=== PATIENT | male | born 1950 | race Caucasian/White ===

== ENCOUNTER 2020-05-14 09:37 | Outpatient (REF) | payer MEDICARE, MEDICAID, SELFPAY ==
[2020-05-14 10:38] LABS: MANUAL DIFF FLAG NO
[2020-05-14 10:57] LABS: Basophils Percent Auto 0.5 % (0-2); Eosinophils Absolute Auto 0.2 X10*3/uL (0.0-0.4); Eosinophils Percent Auto 2.5 % (0-4); Hemoglobin 12.8 g/dl (14.0-18.0); Imm Gran Abs Auto 0.01 X10*3/uL (0.00-0.03); Imm Gran Pct Auto 0.2 % (0.0-0.4); Lymphocytes Absolute Auto 2.7 X10*3/uL (1.2-4.9); Lymphocytes Percent Auto 44.1 % (20-40); Mean Corpuscular HGB Conc 32.8 g/dl (31.0-36.0); Mean Corpuscular Hemoglobin 29.9 pg (27.0-33.0); Mean Corpuscular Volume 91.1 fL (80-98); Mean Platelet Volume 11.1 fL (9.4-12.4); Monocytes Absolute Auto 0.4 X10*3/uL (0.1-1.2); Monocytes Percent Auto 7.3 % (2-11); Neutrophils Absolute Auto 2.8 X10*3/uL (2.0-8.3); Neutrophils Percent Auto 45.4 % (45-73); Platelet Count 168 X10*3/uL (160-400); Red Blood Count 4.28 X10*6/uL (4.60-5.80); Red Cell Distribution Width 13.6 % (11.0-16.0); White Blood Count 6.1 X10*3/uL (4.8-10.8)
[2020-05-14 11:06] LABS: Anion Gap 14 (12-20); Blood Urea Nitrogen 27 mg/dL (9-16); Calcium 9.7 mg/dL (8.4-10.2); Carbon Dioxide 26 mmol/L (22-29); Chloride 104 mmol/L (96-108); Estimated Glomerular Filt Rate 39; Phosphorus 3.2 mg/dL (2.7-4.5); Potassium 4.7 mmol/l (3.3-5.1); Sodium 139 mmol/L (135-145)
[2020-05-14 12:02] LABS: Albumin Level 4.7 g/dL (3.5-5.0)
[2020-05-14 12:36] LABS: Renal w Reflex Lab Use Only Order verified
== END 2020-05-14 09:38 | disposition home or self-care (01) ==
LOC: HO.LAB 09:37
PROVIDERS: PCP Internal Medicine; Visit Provider Internal Medicine Nephrology
DX: I12.9 Hypertensive chronic kidney disease with stage 1 through stage 4 chronic kidney disease, or unspecified chronic kidney disease (principal); N18.4 Chronic kidney disease, stage 4 (severe); N25.81 Secondary hyperparathyroidism of renal origin; I69.959 Hemiplegia and hemiparesis following unspecified cerebrovascular disease affecting unspecified side
CPT/HCPCS: 36415; 80051; 82040; 82310; 82565; 84100; 84520; 85025

== ENCOUNTER 2020-08-23 11:44 | Outpatient (REF) | payer MEDICARE, MEDICAID, SELFPAY | END 2020-08-23 11:45 | disposition home or self-care (01) | LOC: HO.LAB 11:44 | PROVIDERS: Visit Provider Internal Medicine | DX: Z20.822 Contact with and (suspected) exposure to COVID-19 (principal) | CPT/HCPCS: 36415; C9803; U0003 ==

== ENCOUNTER 2021-03-04 17:33 | Emergency (ER) | payer OTHER, SELFPAY ==
--- NOTE | ~2021-03-04 | CT_ITS ---
EXAMINATION: CT ABDOMEN AND PELVIS WITHOUT CONTRAST CLINICAL INFORMATION: Right lower quadrant periumbilical pain. COMPARISON: No priors. TECHNIQUE: Multidetector volumetric imaging was performed from the superior aspect of the liver through the pubic symphysis. Sagittal and coronal reformatted images were obtained on the technologist's workstation. This CT examination was performed using dose optimization techniques as appropriate, variously including the following: *Automated exposure control *Adjustment of mA and/or kV according to patient size (this includes techniques or standardized protocols for targeted exams where dose is matched to indication/reason for exam; i.e. extremities or head) *Use of iterative reconstruction technique DLP: 753 mGy-cm FINDINGS: LINES AND TUBES: None. LOWER THORAX: Lung bases are clear. Heart is normal in size. No pericardial effusion or thickening. HEPATOBILIARY: The liver is normal in size, contour, and attenuation. No focal hepatic lesions. The gallbladder is present and otherwise unremarkable. No intrahepatic or extrahepatic biliary dilatation. SPLEEN: Normal. PANCREAS: Normal. ADRENALS: Normal. KIDNEYS/URETERS: Right kidney is atrophic. Right ureter is normal throughout its course. Normal left kidney. Simple cyst in the left mid kidney measures up to 1.7 cm. Left ureter is normal throughout its course. BLADDER: Normal. PELVIC ORGANS: Prostate seminal vesicles are normal in caliber. Central prostatic calcifications noted. GI TRACT: No dilated or thick walled loops of bowel. Cecum is in the midline and the appendix (3:62) appears normal caliber. Left colon and proximal sigmoid diverticulosis. PERITONEUM/RETROPERITONEUM AND MESENTERY: No intraperitoneal free air or fluid. LYMPH NODES: No pathologically enlarged lymph nodes. VESSELS: Normal in caliber. BONES AND SOFT TISSUES: No aggressive osseous lesions. Fat-containing periumbilical hernia. No evidence of inflammatory changes in the herniated the local fat to suggest regulation. A large right small bowel and fat-containing inguinal hernia is appreciated. No inflammatory changes in the herniated bowel or herniated fat is appreciated. A small portion of the right anterior urinary bladder wall is herniated into the right inguinal hernia. CT/CT abdomen pelvis wo con IMPRESSION: 1. Fat-containing periumbilical hernia without evidence of strangulation. 2. Large small bowel and fat-containing right inguinal hernia. No evidence of angulation. 3. Atrophic right kidney. 4. Distal left colon and proximal sigmoid diverticulosis. No evidence of diverticulitis.
[2021-03-04 17:44] VITALS: BP 128/58; PULSE 53; O2SAT 98
[2021-03-04 18:03] VITALS: BP 126/60; PULSE 49; RESP 16; TEMP 36.6; O2SAT 97; BMI 26.8
--- NOTE | 2021-03-04 18:13 | ED.ABDPAIN ---
HPI - Abdominal Pain General Chief Complaint: Abdominal Pain Stated Complaint: ABD PAIN Time Seen by Provider: 03/04/21 18:11 Source: patient, family, EMS and designer architect Mode of arrival: EMS Limitations: no limitations History of Present Illness MD elicited complaint: abdominal pain Pertinent past history: none Onset (ago): hour(s) (upon waking earlier this AM) Pain Consistency: constant Location: periumbilical Severity: moderate Quality: cramping Radiation: none Migration to: no migration Exacerbating factors: nothing Relieving factors: nothing Associated symptoms: denies other symptoms Related Data Home Medications Medication Instructions Recorded Confirmed aspirin 81 mg tablet,delayed 81 mg PO DAILY 11/15/20 02/17/21 release cholecalciferol (vitamin D3) 25 25 mcg PO DAILY 11/15/20 02/17/21 mcg (1,000 unit) tablet cyanocobalamin (vitamin B-12) 1,000 mcg PO DAILY 11/15/20 02/17/21 1,000 mcg capsule Previous Rx's Medication Instructions Recorded walker #1 ea 11/15/20 folic acid 1 mg tablet 1 mg PO DAILY 90 Days #90 tab 02/01/21 lisinopril 2.5 mg tablet 2.5 mg PO DAILY 90 Days #90 tab 02/01/21 amlodipine 10 mg tablet 10 mg PO DAILY 90 Days #90 tab 02/02/21 furosemide 20 mg tablet 20 mg PO DAILY 90 Days #90 tab 02/02/21 metoprolol tartrate 25 mg tablet 25 mg PO DAILY #90 tab 02/02/21 rosuvastatin 10 mg tablet 10 mg PO DAILY 90 Days #90 tab 02/17/21 Allergies Allergy/AdvReac Type Severity Reaction Status Date / Time No Known Allergies Allergy Verified 02/17/21 15:00 Review of Systems Review of Systems Constitutional : No Weight loss, No Fever, No Chills ENT/Mouth : No sore throat, No Rhinorrhea Eyes: No Swelling, No Redness Cardiovascular : No Chest Pain, No SOB, NoEdema Respiratory : No Cough, No Sputum, No Wheezing Gastrointestinal : no Nausea, no Vomiting, no Diarrhea, positive abdominal Pain, No Hematochezia, No Melena, pos constipation Genitourinary : No Dysuria, No Urinary Frequency, No Hematuria, No Urgency Musculoskeletal : No joint pain, No Myalgias, No Joint Swelling Skin : No Skin Lesions, No rash Neuro : No Weakness, No Numbness, No Dizziness, No Headache Psych : No Anxiety/Panic, No Depression Heme/Lymph: No Bruising, No Lymphadenopathy Endocrine : No Polyuria, No Polydipsia All other systems reviewed and are negative. Physical Exam Vital Signs: Vital Signs: Last Vital Signs Temp 97.8 F 03/04/21 18:03 Pulse 49 L 03/04/21 18:03 Resp 16 03/04/21 18:03 BP 126/60 03/04/21 18:03 Pulse Ox 97 03/04/21 18:03 Body Mass Index 26.8 Appearance: Alert. Oriented X3. No acute distress. Eyes: Pupils equal, round and reactive to light. ENT: Pharynx normal. Neck: Normal inspection. Neck supple. CVS: Normal heart rate and rhythm. Pulses normal. Respiratory: No respiratory distress. Breath sounds normal. Abdomen: Soft and mild periumbilical ttp no rebound or guarding Skin: Skin warm and dry. Normal skin color. Normal skin turgor. Extremities: No lower extremity edema. No calf ttp Neuro: Oriented X 3. No motor deficit. No sensory deficit. Course Course Course Narrative: hernis in groin easily reduced, no pain no signs of obstructino, pain resolved will refer to surgery as outpatient MDM - Abdominal Pain MDM Narrative Medical decision making narrative: 70 yo male with hx of DM, CKD, HTN, HLD, no prior abdominal surgeries comes in with c/o periumbilical pain since this AM associated symptom mild constipation no other complaints at this time will need labs, CT scan for constipation/appendicitis/diverticulitis, dispo per results and findings. Lab Data Result diagrams: 03/04/21 19:43 03/04/21 20:19 Labs: Lab Results 03/04/21 03/04/21 03/04/21 Range/Units 19:43 19:43 20:19 WBC 7.4 (4.8-10.8) X10*3/uL RBC 4.44 L (4.60-5.80) X10*6/uL Hgb 13.4 L (14.0-18.0) g/dl Hct 40.0 L (42-52) % MCV 90.1 (80-98) fL MCH 30.2 (27.0-33.0) pg MCHC 33.5 (31.0-36.0) g/dl RDW 13.2 (11.0-16.0) % Plt Count 177 (160-400) X10*3/uL MPV 10.4 (9.4-12.4) fL Immature Gran % (Auto) 0.1 (0.0-0.4) % Neut % (Auto) 74.5 H (45-73) % Lymph % (Auto) 17.4 L (20-40) % [place] % (Auto) 6.9 (2-11) % Eos % (Auto) 0.7 (0-4) % Baso % (Auto) 0.4 (0-2) % Lymph # (Auto) 1.3 (1.2-4.9) X10*3/uL [place] # (Auto) 0.5 (0.1-1.2) X10*3/uL Eos # (Auto) 0.1 (0.0-0.4) X10*3/uL Baso # (Auto) 0.0 (0.0-0.2) X10*3/uL Abs Immat Gran (auto) 0.01 (0.00-0.03) X10*3/uL Absolute Neuts (auto) 5.5 (2.0-8.3) X10*3/uL Absolute Nucleated RBC 0.000 (0.0-0.012) X10*3/uL Nucleated RBC % (auto) 0.0 (0.0-0.2) /100WBC Sodium Cancelled 138 Potassium Cancelled 5.4 H Chloride Cancelled 105 Carbon Dioxide Cancelled 23 Anion Gap Cancelled 15 BUN Cancelled 33 H Creatinine Cancelled 2.06 H Estim Creat Clear Calc Cancelled 30.7 Estimated GFR Cancelled 32 Random Glucose Cancelled 125 H Calcium Cancelled 9.9 Magnesium 2.3 (1.6-2.6) mg/dL Total Bilirubin 0.7 (0.0-1.0) mg/dL Direct Bilirubin 0.3 (0.0-0.5) mg/dL AST 16 (5-37) U/L ALT 13 (0-40) U/L Alkaline Phosphatase 64 (39-117) U/L Total Protein 7.6 (6.5-8.0) g/dL Albumin 4.4 (3.5-5.0) g/dL Lipase Cancelled 38 Urine Color Urine Appearance Urine pH (5.0-8.0) Ur Specific [place] (1.005-1.025) Urine Protein (NEG-TRACE) MG/DL Urine Glucose (UA) (NEG) MG/DL Urine Ketones (NEG) MG/DL Urine Blood (NEG) Urine Nitrite (NEG) Ur Leukocyte Esterase (NEG) 03/04/21 Range/Units 21:00 WBC (4.8-10.8) X10*3/uL RBC (4.60-5.80) X10*6/uL Hgb (14.0-18.0) g/dl Hct (42-52) % MCV (80-98) fL MCH (27.0-33.0) pg MCHC (31.0-36.0) g/dl RDW (11.0-16.0) % Plt Count (160-400) X10*3/uL MPV (9.4-12.4) fL Immature Gran % (Auto) (0.0-0.4) % Neut % (Auto) (45-73) % Lymph % (Auto) (20-40) % [place] % (Auto) (2-11) % Eos % (Auto) (0-4) % Baso % (Auto) (0-2) % Lymph # (Auto) (1.2-4.9) X10*3/uL [place] # (Auto) (0.1-1.2) X10*3/uL Eos # (Auto) (0.0-0.4) X10*3/uL Baso # (Auto) (0.0-0.2) X10*3/uL Abs Immat Gran (auto) (0.00-0.03) X10*3/uL Absolute Neuts (auto) (2.0-8.3) X10*3/uL Absolute Nucleated RBC (0.0-0.012) X10*3/uL Nucleated RBC % (auto) (0.0-0.2) /100WBC Sodium Potassium Chloride Carbon Dioxide Anion Gap BUN Creatinine Estim Creat Clear Calc Estimated GFR Random Glucose Calcium Magnesium (1.6-2.6) mg/dL Total Bilirubin (0.0-1.0) mg/dL Direct Bilirubin (0.0-0.5) mg/dL AST (5-37) U/L ALT (0-40) U/L Alkaline Phosphatase (39-117) U/L Total Protein (6.5-8.0) g/dL Albumin (3.5-5.0) g/dL Lipase Urine Color YELLOW Urine Appearance CLEAR Urine pH 6.0 (5.0-8.0) Ur Specific [place] 1.020 (1.005-1.025) Urine Protein NEG (NEG-TRACE) MG/DL Urine Glucose (UA) NEG (NEG) MG/DL Urine Ketones NEG (NEG) MG/DL Urine Blood NEG (NEG) Urine Nitrite NEG (NEG) Ur Leukocyte Esterase NEG (NEG) ECG Data Attestation: I personally reviewed and interpreted this ECG as follows: ECG interpretation date: 03/04/21 ECG interpretation time: 19:17 Interpretation: Rate: 49 Rhythm: sinus bradycardia with 1st degree AVB [place]: left Normal P waves. 1st degree AVB Normal QRS complex. ST T wave : normal no CECILIO qTC: normal prior studies: no acute ischemia The study has been interpreted contemporaneously by me. . Discharge Plan Discharge Clinical Impression: Inguinal hernia Qualifiers: Obstruction and gangrene presence: without obstruction or gangrene Laterality: unilateral Recurrence: not specified as recurrent Qualified Code(s): K40.90 - Unilateral inguinal hernia, without obstruction or gangrene, not specified as recurrent Patient Disposition: Home, Self-Care Instructions: Inguinal Hernia (ED) Additional Instructions: return to ED for any worsening symptoms or concerns Prescriptions: No Action folic acid 1 mg tablet 1 mg PO DAILY 90 Days Qty: 90 RF: 1 lisinopril 2.5 mg tablet 2.5 mg PO DAILY 90 Days Qty: 90 RF: 2 metoprolol tartrate 25 mg tablet 25 mg PO DAILY Qty: 90 RF: 2 furosemide 20 mg tablet 20 mg PO DAILY 90 Days Qty: 90 RF: 1 amlodipine 10 mg tablet 10 mg PO DAILY 90 Days Qty: 90 RF: 2 rosuvastatin [Crestor] 10 mg tablet 10 mg PO DAILY 90 Days Qty: 90 RF: 2 aspirin [Adult Low Dose Aspirin] 81 mg tablet,delayed release (DR/EC) 81 mg PO DAILY RF: 0 cyanocobalamin (vitamin B-12) 1,000 mcg capsule 1,000 mcg PO DAILY RF: 0 cholecalciferol (vitamin D3) 25 mcg (1,000 unit) tablet 25 mcg PO DAILY RF: 0 (DME) walker Misc See Rx Instructions .ROUTE .MEDSUPPLY Qty: 1 RF: 0 Referrals: Jorge Miguel MD [Physician] - 1 week Print Language: Panamanian ON LICENSE OF [facility] Past Medical History Attestation statement: The following information was validated with the patient. Medical History CKD (chronic kidney disease) stage 4, GFR 15-29 ml/min History of CVA (cerebrovascular accident) Hypercholesterolemia Hypertension Thrombocytopenia Type 2 diabetes mellitus with hyperglycemia Vitamin D deficiency Social History Social History Housing: House Alcohol intake: former Patient Tobacco Use Status: Never used Tobacco Advance Directives: No Advance Directives Information Provided: Yes service: No Current occupational status: retired
--- NOTE | 2021-03-04 18:54 | ECG_ITS ---
Test Reason : ABD PAIN Blood Pressure : / mmHG Vent. Rate : 049 BPM Atrial Rate : 049 BPM P-R Int : 286 ms QRS Dur : 096 ms QT Int : 446 ms P-R-T Axes : 077 -11 059 degrees QTc Int : 402 ms Sinus bradycardia with 1st degree A-V block Otherwise normal ECG When compared with ECG of 21-JUN-2019 09:18, No significant change was found Referred By: Leslee Chery Electronically Signed By:TAMMI GANT MD
[2021-03-04] MEDS: 0.9 % Sodium Chloride 500 ML IV (19:26)
[2021-03-04 19:48] LABS: MANUAL DIFF FLAG NO
[2021-03-04 19:52] LABS: Basophils Percent Auto 0.4 % (0-2); Eosinophils Absolute Auto 0.1 X10*3/uL (0.0-0.4); Eosinophils Percent Auto 0.7 % (0-4); Hemoglobin 13.4 g/dl (14.0-18.0); Imm Gran Abs Auto 0.01 X10*3/uL (0.00-0.03); Imm Gran Pct Auto 0.1 % (0.0-0.4); Lymphocytes Absolute Auto 1.3 X10*3/uL (1.2-4.9); Lymphocytes Percent Auto 17.4 % (20-40); Mean Corpuscular HGB Conc 33.5 g/dl (31.0-36.0); Mean Corpuscular Hemoglobin 30.2 pg (27.0-33.0); Mean Corpuscular Volume 90.1 fL (80-98); Mean Platelet Volume 10.4 fL (9.4-12.4); Monocytes Absolute Auto 0.5 X10*3/uL (0.1-1.2); Monocytes Percent Auto 6.9 % (2-11); Neutrophils Absolute Auto 5.5 X10*3/uL (2.0-8.3); Neutrophils Percent Auto 74.5 % (45-73); Platelet Count 177 X10*3/uL (160-400); Red Blood Count 4.44 X10*6/uL (4.60-5.80); Red Cell Distribution Width 13.2 % (11.0-16.0); White Blood Count 7.4 X10*3/uL (4.8-10.8)
[2021-03-04 20:49] LABS: Alanine Aminotransferase 13 U/L (0-40); Albumin Level 4.4 g/dL (3.5-5.0); Alkaline Phosphatase 64 U/L (39-117); Anion Gap 15 (12-20); Aspartate Amino Transferase 16 U/L (5-37); Bilirubin Direct 0.3 mg/dL (0.0-0.5); Bilirubin Total 0.7 mg/dL (0.0-1.0); Blood Urea Nitrogen 33 mg/dL (9-16); Calcium 9.9 mg/dL (8.4-10.2); Carbon Dioxide 23 mmol/L (22-29); Chloride 105 mmol/L (96-108); Creatinine Clr Calc Pharmacy 30.7; Estimated Glomerular Filt Rate 32; Glucose Random 125 mg/dL (60-115); Lipase 38 U/L (8-78); Magnesium 2.3 mg/dL (1.6-2.6); Potassium 5.4 mmol/L (3.3-5.1); Sodium 138 mmol/L (135-145); Total Protein 7.6 g/dL (6.5-8.0)
[2021-03-04 21:27] LABS: Glucose Urine UA NEG (NEG); Leukocyte Esterase Urine NEG (NEG); Nitrite Urine NEG (NEG); Urine Blood NEG (NEG); Urine Ketones NEG (NEG); Urine Protein NEG (NEG-TRACE)
[2021-03-04 21:31] LABS: Appearance Urine CLEAR; Color Urine YELLOW
== END 2021-03-04 22:12 | disposition home or self-care (01) ==
PROVIDERS: Emergency Provider Emergency Medicine; PCP Internal Medicine
DX: K40.90 Unilateral inguinal hernia, without obstruction or gangrene, not specified as recurrent (principal); R10.33 Periumbilical pain; E11.22 Type 2 diabetes mellitus with diabetic chronic kidney disease; I12.9 Hypertensive chronic kidney disease with stage 1 through stage 4 chronic kidney disease, or unspecified chronic kidney disease; N18.4 Chronic kidney disease, stage 4 (severe); Z86.73 Personal history of transient ischemic attack (TIA), and cerebral infarction without residual deficits
CPT/HCPCS: 36415; 74176; 80048; 80076; 81003; 83690; 83735; 85025; 93005; 96360; 99283; 99284

== ENCOUNTER → 2021-03-16 15:43 | Outpatient (BNVA) | payer MEDICARE, SELFPAY | PROVIDERS: PCP Internal Medicine; Referring Provider Internal Medicine; Visit Provider Surgery | DX: K40.90 Unilateral inguinal hernia, without obstruction or gangrene, not specified as recurrent (principal); K42.9 Umbilical hernia without obstruction or gangrene | CPT/HCPCS: 99202 ==

== ENCOUNTER 2021-10-14 10:37 | Outpatient (REF) | payer MEDICARE, SELFPAY ==
[2021-10-14 10:59] LABS: MANUAL DIFF FLAG NO
[2021-10-14 11:56] LABS: Basophils Percent Auto 0.3 % (0-2); Eosinophils Absolute Auto 0.1 X10*3/uL (0.0-0.4); Eosinophils Percent Auto 1.6 % (0-4); Hematocrit 38.6 % (42.0-52.0); Hemoglobin 12.3 g/dl (14.0-18.0); Imm Gran Abs Auto 0.01 X10*3/uL (0.00-0.03); Imm Gran Pct Auto 0.1 % (0.0-0.4); Lymphocytes Absolute Auto 2.4 X10*3/uL (1.2-4.9); Lymphocytes Percent Auto 34.5 % (20-40); Mean Corpuscular HGB Conc 31.9 g/dl (31.0-36.0); Mean Corpuscular Hemoglobin 29.9 pg (27.0-33.0); Mean Corpuscular Volume 93.9 fL (80.0-98.0); Mean Platelet Volume 10.6 fL (9.4-12.4); Monocytes Absolute Auto 0.5 X10*3/uL (0.1-1.2); Monocytes Percent Auto 7.7 % (2-11); Neutrophils Absolute Auto 3.9 x10*3/uL (2.0-8.3); Neutrophils Percent Auto 55.8 % (45-73); Platelet Count 210 X10*3/uL (160-400); Red Blood Count 4.11 X10*6/uL (4.60-5.80); Red Cell Distribution Width 13.3 % (11.0-16.0); White Blood Count 6.9 X10*3/uL (4.8-10.8)
[2021-10-14 12:01] LABS: Anion Gap 15 (12-20); Blood Urea Nitrogen 27 mg/dL (9-16); Calcium 10.3 mg/dL (8.4-10.2); Carbon Dioxide 26 mmol/L (22-29); Chloride 105 mmol/L (96-108); Estimated Glomerular Filt Rate 35; Iron 83 mcg/dL (45-160); Percent Iron Saturation 28 % (15-50); Phosphorus 2.8 mg/dL (2.7-4.5); Potassium 4.8 mmol/L (3.3-5.1); Sodium 141 mmol/L (135-145); Total Iron Binding Capacity 298 mcg/dL (228-428); Unsaturated Iron Binding 215 ug/dL
[2021-10-16 13:35] LABS: PTHI 225 pg/mL (14-64)
== END 2021-10-14 10:38 | disposition home or self-care (01) ==
LOC: HO.LAB 10:37
PROVIDERS: Absent Provider Internal Medicine; PCP Internal Medicine; Visit Provider Internal Medicine Nephrology
DX: N18.4 Chronic kidney disease, stage 4 (severe) (principal); I69.954 Hemiplegia and hemiparesis following unspecified cerebrovascular disease affecting left non-dominant side; N25.81 Secondary hyperparathyroidism of renal origin
CPT/HCPCS: 36415; 80051; 82306; 82310; 82565; 83540; 83970; 84100; 84520; 85025

== ENCOUNTER → 2021-12-04 14:04 | Outpatient (BNVA) | payer OTHER, SELFPAY | PROVIDERS: PCP Internal Medicine; Referring Provider Internal Medicine; Visit Provider Surgery | DX: K40.90 Unilateral inguinal hernia, without obstruction or gangrene, not specified as recurrent (principal); K42.9 Umbilical hernia without obstruction or gangrene | CPT/HCPCS: 99212 ==

== ENCOUNTER → 2022-01-10 14:57 | Outpatient (BNVA) | payer OTHER, SELFPAY | PROVIDERS: PCP Internal Medicine; Referring Provider Internal Medicine; Visit Provider Internal Medicine | DX: Z01.810 Encounter for preprocedural cardiovascular examination (principal); I44.0 Atrioventricular block, first degree; E11.65 Type 2 diabetes mellitus with hyperglycemia; E11.22 Type 2 diabetes mellitus with diabetic chronic kidney disease; I12.9 Hypertensive chronic kidney disease with stage 1 through stage 4 chronic kidney disease, or unspecified chronic kidney disease; N18.4 Chronic kidney disease, stage 4 (severe); I25.2 Old myocardial infarction; E78.00 Pure hypercholesterolemia, unspecified; Z86.73 Personal history of transient ischemic attack (TIA), and cerebral infarction without residual deficits | CPT/HCPCS: 93005; 99202 ==

== ENCOUNTER → 2022-02-08 09:16 | Outpatient (REF) | payer OTHER, SELFPAY ==
--- NOTE | ~2022-02-08 | NM_ITS ---
Huong Myocardial perfusion study Indication: Preoperative cardiovascular examination Technique: The patient was brought in for a dobutamine myocardial perfusion study on 02/08/2022 and was injected dobutamine intravenously per protocol. Subsequently 25 mCi of sestamibi was given intravenously. Images were obtained using the SPECT gamma camera interlaced with the gating device. Images were obtained in supine position. Resting perfusion study was performed on 02/09/2022. Patient was administered 25 mCi of sestamibi intravenously at rest. Images were then obtained in supine position. Total DLP 150mGy-cm. Images were processed with the software and compared side to side in short axis, horizontal long axis and vertical long axis views. Findings: Raw acquisition reviewed. Both arms by the patient's side The stress perfusion study showed diminished tracer uptake along mid to distal inferolateral wall there is some improvement with CT attenuation correction but not entirely. Hence probably components of diaphragmatic artifact as well as true defect. The gated study shows normal LV systolic function with calculated LVEF of 64%. LV cavity is normal in size. The gated study shows inferolateral akinesis. Resting study shows diminished tracer uptake in the mid to distal inferolateral wall. Slight improvement with CT attenuation correction but not entirely. Gating at rest reveals ejection fraction at 75%. The findings are consistent with-mostly fixed mid to distal inferolateral defect; mild reversibility. NM/NM cardiolite stress test Impression: 1. Myocardial perfusion imaging study shows infarct in the mid to distal inferolateral wall with mild ischemia. 2. Gated LVEF is 64% during stress and 74% during rest. 3. Transient ischemic dilatation not present. EKG component of the test reported separately.
--- NOTE | 2022-02-08 09:20 | CA_ITS ---
Acquisition Time: 2022-02-08 09:42:20 Total Exercise Time: 00:13:30 Test Indications: PREOP Medications: AMILODIPINE ASA LISINOPRIL ROSUVASTATIN Protocol: DOBUTAMINE Max HR: 126 BPM 85% of Pred: 148 BPM Max BP: 116/062 mmHG Max Work Load: 1.0 METS Pharmacolgical stress test with Dobutamine infusion per protocol, to max dose of 30 mcg/ kg/ min, achieing 85% MPHR, without anginal symptoms, with isolated PACs, and PVCs, with short run of narrow complex tachycardia in recovery, with normotensive response to infusion, with nondiagnostic EKG for ischemia due to baseline abnormality. He was monitored for 13 min in recovery. Nuclear images pending. Test reviewed with Dr Whitley. Referred By: Dmitriy Willis Overread By: WINSTON MOREIRA
== END ==
LOC: HO.CARD 09:16
PROVIDERS: PCP Internal Medicine; Visit Provider Internal Medicine
DX: Z01.810 Encounter for preprocedural cardiovascular examination (principal)
CPT/HCPCS: 78452; 93017; A9500; J1250

== ENCOUNTER → 2022-02-21 13:11 | Outpatient (REF) | payer OTHER, SELFPAY ==
--- NOTE | 2022-02-21 13:14 | CA_ITS ---
Transthoracic Echocardiogram Patient (Last, First, Middle): Rio Rushing A Gender: Male Date of : 1950 Age: 71 Procedure Date: 02/21/2022 Procedure Type: Transthoracic Echocardiogram Location: OP Height: 165.1 cm Weight: 81.65 kg BSA: 1.89 m2 Heart Rate: 57 bpm BP: 128 / 72 mmHg Hvac/R Instructor: SB Referring MD: Dmitriy Willis MD Tax Manager Cpa: Wood Gomes MD Symptoms: Z01.810 - Encounter for preprocedural cardiovascular exam... Study Quality: Fair ECG Rhythm: Bradycardia Conclusions: - 1. Normal LV systolic function with grade 2 diastolic dysfunction 2. Mild aortic and mitral regurgitation 3. No gross pericardial effusion Findings Procedure Information Contrast agent, definity, is being given per protocol without apparent complications. Left Ventricle Normal left ventricular size, thickness, and systolic function. The visually estimated ejection fraction is between 65-70%. Spectral Doppler is indicative of a pseudonormal filling pattern. E/E prime ratio is >15, consistent with elevated filling pressures. Evidence suggests grade II (moderate) diastolic dysfunction. Right Ventricle Normal right ventricular cavity size and systolic function. Atria The left atrium is normal in size. There is no evidence of interatrial shunt. The right atrium is normal in size. Aortic Valve There is mild calcification of the aortic valve. There is no aortic valve stenosis. There is mild aortic valve regurgitation. Mitral Valve There is mild anterior and posterior mitral leaflet thickening. There is mild mitral valve regurgitation. There is no mitral valve stenosis. Pulmonic Valve The pulmonic valve was not well visualized. Tricuspid Valve Likely normal tricuspid valve structure and function. Tricuspid regurgitation envelope is inadequate for calculation of right ventricular systolic pressure. Normal right atrial pressure. Great Vessels All visible segments of the aorta are normal in size. The pulmonary artery was not well visualized. Venous The inferior vena cava is normal in size and collapses greater than 50% with inspiration. Pericardium/Pleural There is no evidence of pericardial effusion. Prior Study Comparison No significant change compared to prior study dated: 05/03/2009. Measurements 2D Linear Measurements IVSd: 0.88 0.6-0.9/0.6-1.0 cm LVIDd: 4.64 3.9-5.3/4.2-5.9 cm LVIDd Index: 2.46 2.4-3.2/2.2-3.1 cm/m2 LVIDs: 2.86 2.0-3.6 cm LVPWd: 0.50 0.7-1.1 cm LA Diam: 3.40 2.7-3.8/3.0-4.0 cm LAIDs Index: 1.80 1.5-2.3 cm/m2 LV Mass: 122.32 67-162/88-224 g LV Mass Index: 64.72 43-95/49-115 g/m2 LVOT Diam: 2.20 3.0+(-)1.3 cm 2D Systolic Function EF 4C: 60.80 >55% EF 2C: 72.60 >55% EF BiP: 65.90 >55% Mitral Valve MV Pk E: 0.97 MV PK A: 0.99 MV Decel Time: 225.00 E/A: 1.00 E'Lateral: 6.09 E'Medial: 4.13 E/E' Med: 23.40 E/E' Lat: 15.90 PHT: 66.00 MVA PHT: 3.33 Decel [place]: 4.31 Aortic Valve AoV Pk Aroldo: 1.82 AoV Mn Aroldo: 1.25 AoV VTI: 0.37 AoV Pk Grad: 13.00 Aov Mn Grad: 7.00 TERENCE Cont.VTI: 2.14 AI Pk Aroldo: 3.74 AI [place]: 1.38 LVOT LVOT Pk Aroldo: 0.93 LVOT Mn Aroldo: 0.68 LVOT VTI: 0.21 LVOT Pk Grad: 3.00 LVOT Mn Grad: 2.00 LVOT Diam: 2.20 LVOT Area: 3.80 Diastolic Function MV Pk E: 0.97 MV Pk A: 0.99 E/A: 1.00 E'Medial: 4.13 E/E' Med: 23.40 E' Laterial: 6.09 E/E' Lat: 15.90 Right Ventricle TAPSE (mm): 20.40 TVS' Aroldo: 7.18 Tricuspid Valve RA Press: 3.00 Great Vessels Aorta Sinus of Valsalva: 3.20 2.0-3.5 cm Ao Asc: 3.20 2.1-3.4 cm Pulmonary Valve PV Pk Aroldo: 1.22 Peak PV Grad: 6.00 Updated in Other Vendor System with Status of Final Wood Gomes MD electronically signed on 02/22/2022 1:34:21 PM with status of Final
== END ==
LOC: HO.CARD 13:11
PROVIDERS: Visit Provider Internal Medicine
DX: Z01.810 Encounter for preprocedural cardiovascular examination (principal)
CPT/HCPCS: 93306; Q9957

== ENCOUNTER → 2022-04-11 14:44 | Outpatient (BNVA) | payer OTHER, SELFPAY | PROVIDERS: PCP Internal Medicine; Referring Provider Internal Medicine; Visit Provider Internal Medicine | DX: Z01.810 Encounter for preprocedural cardiovascular examination (principal); I44.0 Atrioventricular block, first degree; I25.2 Old myocardial infarction; E78.00 Pure hypercholesterolemia, unspecified; E11.65 Type 2 diabetes mellitus with hyperglycemia; E11.22 Type 2 diabetes mellitus with diabetic chronic kidney disease; I12.9 Hypertensive chronic kidney disease with stage 1 through stage 4 chronic kidney disease, or unspecified chronic kidney disease; N18.4 Chronic kidney disease, stage 4 (severe); Z86.73 Personal history of transient ischemic attack (TIA), and cerebral infarction without residual deficits | CPT/HCPCS: 99212 ==

== ENCOUNTER 2022-04-19 10:24 | Emergency (ER) | payer OTHER, SELFPAY ==
--- NOTE | ~2022-04-19 | XR_ITS ---
EXAMINATION: XR KNEE, RIGHT CLINICAL INFORMATION: Pain COMPARISON: None TECHNIQUE: Two views of the right knee. FINDINGS: No fracture or dislocation. No suprapatellar joint effusion. Joint spaces are well-maintained. Tiny tricompartmental marginal osteophytes. No focal soft tissue swelling of the anterior knee. XR/XR knee RT 2V IMPRESSION: Grossly unremarkable radiographs of the right knee.
--- NOTE | ~2022-04-19 | CT_ITS ---
EXAMINATION: CT ABDOMEN AND PELVIS WITHOUT CONTRAST CLINICAL INFORMATION: Trauma COMPARISON: Previous CT of the abdomen and pelvis February 2021 TECHNIQUE: Multidetector volumetric imaging was performed from the superior aspect of the liver through the pubic symphysis. Sagittal and coronal reformatted images were obtained on the technologist's workstation. This CT examination was performed using dose optimization techniques as appropriate, variously including the following: *Automated exposure control *Adjustment of mA and/or kV according to patient size (this includes techniques or standardized protocols for targeted exams where dose is matched to indication/reason for exam; i.e. extremities or head) *Use of iterative reconstruction technique DLP: 766 mGy-cm FINDINGS: LIVER, GALLBLADDER, AND BILIARY TREE: The liver is normal in size, shape, and attenuation. No focal hepatic lesion or biliary ductal dilatation is present. The gallbladder is unremarkable with no evidence of radiopaque gallstones, gallbladder wall thickening, or obvious pericholecystic inflammatory changes. PANCREAS: Unremarkable. SPLEEN: Unremarkable. ADRENAL GLANDS: Unremarkable. KIDNEYS AND URETERS: Severe right renal cortical thinning or scarring. Probable small stone in the upper pole the right kidney. 1.8 cm left renal cyst. The left kidney is otherwise normal. BLADDER: Large right inguinal hernia containing the bladder. The bladder is otherwise normal. GASTROINTESTINAL TRACT: Large right inguinal hernia containing the cecum and small bowel. No evidence of obstruction. Mild diverticulosis of the colon. No colitis. No ascites or free air. Appendix not seen. ABDOMINAL WALL: Large right inguinal hernia containing cecum, small bowel, bladder and fat. Small umbilical hernia containing fat. LYMPH NODES: Normal. VASCULAR: There is atherosclerotic disease. No aneurysm. PELVIC VISCERA: Unremarkable. OSSEOUS STRUCTURES: Heterogeneous lesion in the left femoral intertrochanteric region that is stable. Degenerative changes of the spine. No fracture or dislocation. CT/CT abdomen pelvis wo IV con IMPRESSION: No acute findings. Large right inguinal hernia containing the cecum, small bowel and bladder. Severe renal cortical thinning and scarring of the right kidney. Small right renal stones. Small left renal cyst. Diverticulosis of the colon. Fleischner guidelines were followed.
--- NOTE | ~2022-04-19 | CT_ITS ---
EXAMINATION: CT CHEST WITHOUT CONTRAST CLINICAL INFORMATION: Fall COMPARISON: Previous chest x-ray most recent June 2019 TECHNIQUE: Multidetector volumetric CT imaging of the chest was done. Axial MIP volume rendering provided. Sagittal and coronal reformatted images were obtained. This CT examination was performed using dose optimization techniques as appropriate, variously including the following: *Automated exposure control *Adjustment of mA and/or kV according to patient size (this includes techniques or standardized protocols for targeted exams where dose is matched to indication/reason for exam; i.e. extremities or head) *Use of iterative reconstruction technique DLP: 4-0 mGy-cm FINDINGS: LUNGS: There is subsegmental atelectasis at the left lung base. The lungs are otherwise clear. MEDIASTINUM: The heart is enlarged. There is coronary artery calcification. The thoracic aorta is normal in caliber. There are no enlarged lymph nodes. No mediastinal fluid collection or abnormal air collection. PLEURA: There is no pleural effusion. No pleural mass or thickening. No pneumothorax. AXILLA: No lymphadenopathy. UPPER ABDOMEN: See CT of the abdomen and pelvis from the same day OSSEOUS STRUCTURES: There are degenerative changes of the spine and shoulders. No fracture. CT/CT chest wo IV con IMPRESSION: No acute findings. Subsegmental atelectasis at the left lung base. Enlarged heart and coronary artery calcification. Fleischner guidelines were followed.
--- NOTE | ~2022-04-19 | CT_ITS ---
EXAMINATION: CT CERVICAL SPINE WITHOUT CONTRAST CLINICAL INFORMATION: Fall COMPARISON: Previous cervical spine CT June 2019 TECHNIQUE: Axial images through the cervical spine without contrast. Sagittal and coronal reconstructions on the technologist workstation were performed. This CT examination was performed using dose optimization techniques as appropriate, variously including the following: *Automated exposure control *Adjustment of mA and/or kV according to patient size (this includes techniques or standardized protocols for targeted exams where dose is matched to indication/reason for exam; i.e. extremities or head) *Use of iterative reconstruction technique DLP: 4-0 mGy-cm FINDINGS: Bone alignment is normal. No fracture or dislocation is seen. There is multilevel degenerative spondylosis and degenerative disc disease. There are degenerative changes at the C1 dens and attenuation. Prevertebral soft tissues are normal. There is left carotid calcification. Visualized lung apices are clear. CT/CT cervical spine wo IV con IMPRESSION: Degenerative changes. No fracture or dislocation Fleischner guidelines were followed.
--- NOTE | ~2022-04-19 | CT_ITS ---
EXAMINATION: CT HEAD WITHOUT CONTRAST CLINICAL INFORMATION: Fall COMPARISON: Previous head CT June 2019 TECHNIQUE: Contiguous axial imaging was performed from the skull base to vertex without intravenous administration of contrast. This CT examination was performed using dose optimization techniques as appropriate, variously including the following: *Automated exposure control *Adjustment of mA and/or kV according to patient size (this includes techniques or standardized protocols for targeted exams where dose is matched to indication/reason for exam; i.e. extremities or head) *Use of iterative reconstruction technique DLP: 766 mGy-cm FINDINGS: There is no evidence of an extra-axial collection. There is no evidence of intra-axial or extra-axial hemorrhage. The ventricles and extra-axial CSF spaces are prominent suggestive of generalized atrophy. There is nonspecific periventricular white matter disease. There is an old left thalamic lacunar infarct. No mass, mass effect or acute infarct is seen. There is evidence of atherosclerotic disease. Review at bone windows is normal. No skull fracture is seen. Paranasal sinuses, mastoid air cells and middle ears are clear. CT/CT head/brain wo IV con IMPRESSION: No acute findings. Generalized atrophy, old left thalamic lacunar infarct and nonspecific periventricular white matter disease.
[2022-04-19 10:35] VITALS: BP 108/46; BP 135/82; PULSE 59; PULSE 63; RESP 16; TEMP 36.9; O2SAT 96; O2SAT 98; BMI 25.8
--- NOTE | 2022-04-19 10:35 | ED.GENADULT ---
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 Patient states that he fell 3 days ago and has been having left rib and right knee pain. Patient states that his daughter made him come and he does not want to be here. Patient denies any dizziness, lightheadedness, abdominal pain, nausea, vomiting, fever, chills, blurry vision, double vision, loss of vision, chest pain, difficulty breathing, shortness of breath, back pain, night sweats, pain with urination, increased urinary frequency, increased urinary urgency, blood in his urine or stool, syncope or a near syncopal episode, recent trauma or falls, bowel incontinence, bladder incontinence, bowel retention, bladder retention, or any other complaints at this time. Onset (ago): day(s) (3) Severity: mild Severity scale (1-10): 3 Quality: dull Pain Consistency: constant Relieving factors: none Exacerbating factors: none Associated symptoms: denies other symptoms Treatments prior to arrival: none Related Data Home Medications Medication Instructions Recorded Confirmed aspirin 81 mg tablet,delayed 81 mg PO DAILY 11/15/20 04/11/22 release (Adult Low Dose Aspirin) Previous Rx's Medication Instructions Recorded walker #1 ea 11/15/20 clotrimazole 1 % topical cream 1 appl topical BID 4 weeks #45 10/26/21 grams nystatin 100,000 unit/gram topical 1 appl topical DAILY #60 grams 10/26/21 powder amlodipine 10 mg tablet 10 mg PO DAILY 90 days #90 tabs 11/09/21 lisinopril 2.5 mg tablet 2.5 mg PO DAILY 90 days #90 tabs 11/09/21 rosuvastatin 10 mg tablet (Crestor) 10 mg PO DAILY 90 days #90 tabs 11/09/21 folic acid 1 mg tablet 1 mg PO DAILY #90 tabs 02/14/22 furosemide 20 mg tablet 20 mg PO DAILY 90 days #90 tabs 02/14/22 Allergies Allergy/AdvReac Type Severity Reaction Status Date / Time No Known Allergies Allergy Verified 04/11/22 15:02 Review of Systems Constitutional: Constitutional: Reports no additional constitutional complaints, Denies chills, Denies fever(s) and Denies night sweats Eyes: Eyes: Reports no additional eye complaints, Denies blurry vision, Denies change in vision, Denies diplopia, Denies eye discharge, Denies loss of vision and Denies eye pain ENT: Denies dizziness Cardiovascular: Cardiovascular: Reports no additional cardiovascular complaints, Denies chest pain, Denies lightheadedness, Denies Loss of Consciousness and Denies dyspnea Respiratory: Respiratory: Reports no additional respiratory complaints and Denies dyspnea Gastrointestinal: Gastrointestinal: Reports no additional gastrointestinal complaints, Denies abdominal pain, Denies melena, Denies hematochezia, Denies change in bowel habits and Denies change in stool character Genitourinary: Genitourinary: Reports no additional male genitourinary complaints, Denies hematuria, Denies oliguria, Denies difficulty urinating, Denies dysuria, Denies urinary frequency, Denies urinary hesitancy, Denies urinary incontinence and Denies urinary urgency Musculoskeletal: Musculoskeletal: Reports no additional musculoskeletal complaints, Denies numbness and Denies tingling Comments: left rib pain and right knee pain Neurologic: Denies dizziness, Denies loss of vision, Denies numbness and Denies tingling Psychiatric: Psychiatric: Reports no additional psychiatric complaints Endocrine: Endocrine: Reports no additional endocrine complaints Hematologic/Lymphatic: Hematologic/Lymphatic: Reports no additional hematologic/lymphatic complaints Allergic/Immunologic: Allergic/Immunologic: Reports no additional allergic/immunologic complaints [facility] Past Medical History Attestation statement: The following information was validated with the patient. Source: old records reviewed Medical History CKD (chronic kidney disease) stage 4, GFR 15-29 ml/min History of CVA (cerebrovascular accident) History of CT (myocardial infarction) Hypercholesterolemia Hypertension Right inguinal hernia Thrombocytopenia Type 2 diabetes mellitus with hyperglycemia Umbilical hernia Vitamin D deficiency Surgical History No pertinent past surgical history Family History Family History Father Heart disease Mother No problems noted. Social History Social History (Reviewed 04/19/22 @ 16:40 by RADHA [place] Housing: House Alcohol intake: former Patient Tobacco Use Status: Never used Tobacco e-Cigarette/Vaping Use: Never Used Second Hand Smoke Exposure: No Advance Directives: No Advance Directives Information Provided: No service: No Current occupational status: retired Physical Exam ED Vital Signs: Vital Signs - 24 hr 04/19/22 10:35 04/19/22 10:45 04/19/22 16:00 Temperature 98.4 F 98.4 F 97.8 F Pulse Rate 59 59 74 Respiratory Rate 16 16 16 Blood Pressure 108/46 L 108/46 L 151/70 H Pulse Oximetry 98 99 98 Oxygen Delivery Method Room Air Room Air Room Air BMI result Body Mass Index 25.8 Const General: cooperative, no acute distress, alert and awake Nutritional Appearance: well nourished Orientation/consciousness: patient oriented x3 Limitations: no limitations HENMT Head: Yes normal to inspection and Yes atraumatic Ears: hearing grossly normal bilaterally and external ears normal General nose exam: Normal external nose present, no nasal discharge noted and no epistaxis Face and sinus: Yes normal facial exam, No abrasion and No laceration Mouth: Normal oral and palatal mucosa present, no drooling and no muffled voice Eyes General: appearance normal, both eyes and all related structures Periorbital: periorbital findings normal Eyelids: Yes eyelids normal Conjunctivae: conjunctivae normal Pupils: Equal, round and reactive pupils present EOM: EOMs intact bilaterally Neck Neck: Yes normal visual inspection, Yes full ROM and Yes no lymphadenopathy Chest Chest palpation & inspection: normal inspection of the chest Resp Effort & Inspection: normal respiratory effort and able to speak in complete sentences Auscultation: clear to auscultation bilaterally Cardio Rate: regular rate Rhythm: regular rhythm GI Inspection: Yes normal to inspection Neuro General: patient oriented x3 and moves all extremities Cranial nerves: Yes Equal, round and reactive pupils present Cognition (Neuro): normal cognition Motor exam (neuro): 5/5 motor strength present throughout Sensory Exam: Normal double simultaneous stimulation for sensation Coordination: [id number] test normal Extrem General: Yes normal to inspection, Yes full ROM and Yes capillary refill normal Psych Appearance: grossly normal Mental Status: mental status grossly normal Affect: normal affect Attitude: cooperative Thought process: Normal thought process present Thought content: Normal thought content present Insight: Good insight present (Psych) Medical Decision Making MDM Narrative Medical decision making narrative: Patient is a 71 year old male presenting to the emergency department today with left rib and right knee pain. Patient's physical exam was unremarkable. Patient's blood work showed an elevated creatinine of 2.02 however, this is chronic for the patient. Patient's right knee x-ray showed no acute process. Patient's head, c-spine, chest, and abdomen CTs showed no acute process. I explained my physical exam findings as well as all test results to the patient and the patient's daughter. I answered all questions asked by the patient and the patient's daughter. Patient's daughter expressed concern about the patient tripping and falling a lot more at home and that he lives alone. Patient refuses to go through PT or case management placement in a short term rehab or SNF. I stressed the importance of the patient taking his medication as prescribed. I stressed the importance of the patient following up with his primary care provider. I stressed the importance of the patient returning to the emergency department immediately if his symptoms were to worsen or if he were to develop any dizziness, shortness of breath, difficulty breathing, chest pain, blurry vision, loss of vision, nausea, vomiting, abdominal pain, fever, chills, back pain, or any other complaints. Patient and the patient's verbalized agreement and understanding with this treatment plan and discharge. Differential Diagnosis Differential Diagnosis: fall Medical Records Medical records reviewed: Yes I reviewed the patient's medical records. Lab Data Lab results reviewed: Yes I reviewed the patient's lab results. Result diagrams: 04/19/22 12:36 04/19/22 12:36 Labs: Lab Results 04/19/22 04/19/22 04/19/22 Range/Units 12:36 12:36 12:36 WBC 6.9 (4.8-10.8) X10*3/uL RBC 4.57 L (4.60-5.80) X10*6/uL Hgb 13.8 L (14.0-18.0) g/dl Hct 41.2 L (42.0-52.0) % MCV 90.2 (80.0-98.0) fL MCH 30.2 (27.0-33.0) pg MCHC 33.5 (31.0-36.0) g/dl RDW 13.0 (11.0-16.0) % Plt Count 157 L D (160-400) X10*3/uL MPV 10.6 (9.4-12.4) fL Immature Gran % (Auto) 0.1 (0.0-0.4) % Neut % (Auto) 59.5 (45-73) % Lymph % (Auto) 29.9 (20-40) % Schleicher % (Auto) 7.3 (2-11) % Eos % (Auto) 2.8 (0-4) % Baso % (Auto) 0.4 (0-2) % Lymph # (Auto) 2.1 (1.2-4.9) X10*3/uL Schleicher # (Auto) 0.5 (0.1-1.2) X10*3/uL Eos # (Auto) 0.2 (0.0-0.4) X10*3/uL Baso # (Auto) 0.0 (0.0-0.2) X10*3/uL Abs Immat Gran (auto) 0.01 (0.00-0.03) X10*3/uL Absolute Neuts (auto) 4.1 (2.0-8.3) x10*3/uL Absolute Nucleated RBC 0.000 (0.0-0.012) X10*3/uL Nucleated RBC % (auto) 0.0 (0.0-0.2) /100WBC Sodium 141 (135-145) mmol/L Potassium 5.0 (3.3-5.1) mmol/L Chloride 104 (96-108) mmol/L Carbon Dioxide 23 (22-29) mmol/L Anion Gap 19 (12-20) BUN 43 H D (9-16) mg/dL Creatinine 2.02 H (0.5-1.4) mg/dL Estim Creat Clear Calc 29.8 Estimated GFR 33 Random Glucose 106 (60-115) mg/dL Calcium 9.9 (8.4-10.2) mg/dL Magnesium 2.6 (1.6-2.6) mg/dL Total Bilirubin 0.9 (0.0-1.0) mg/dL AST 20 (5-37) U/L ALT 15 (0-40) U/L Alkaline Phosphatase 65 (39-117) U/L Total Creatine Kinase 130 (38-174) U/L Total Protein 8.3 H (6.5-8.0) g/dL Albumin 4.8 (3.5-5.0) g/dL Imaging Data Right knee x-ray: Attestation: I personally reviewed and interpreted this imaging study as follows: My impression: No acute process. Radiologist's impression: EXAMINATION: XR KNEE, RIGHT? CLINICAL INFORMATION: Pain? COMPARISON: None? TECHNIQUE: Two views of the right knee. FINDINGS: No fracture or dislocation. No suprapatellar joint effusion. Joint spaces are well-maintained. Tiny tricompartmental marginal osteophytes. No focal soft tissue swelling of the anterior knee.? XR/XR knee RT 2V IMPRESSION: Grossly unremarkable radiographs of the right knee. ? Dictated By: Hiren Marie MD Signed By: Electronically signed by Hiren Marie MD 04/19/[address] scan - abdomen: Attestation: I personally reviewed and interpreted this imaging study as follows: My impression: No acute process. Radiologist's impression: EXAMINATION: CT ABDOMEN AND PELVIS WITHOUT CONTRAST? CLINICAL INFORMATION: Trauma? COMPARISON: Previous CT of the abdomen and pelvis February 2021? TECHNIQUE: Multidetector volumetric imaging was performed from the superior aspect of the liver through the pubic symphysis. Sagittal and coronal reformatted images were obtained on the technologist's workstation.? This CT examination was performed using dose optimization techniques as appropriate, variously including the following: *Automated exposure control *Adjustment of mA and/or kV according to patient size (this includes techniques or standardized protocols for targeted exams where dose is matched to indication/reason for exam; i.e. extremities or head) *Use of iterative reconstruction technique DLP: 766 mGy-cm FINDINGS: LIVER, GALLBLADDER, AND BILIARY TREE: The liver is normal in size, shape, and attenuation. No focal hepatic lesion or biliary ductal dilatation is present. The gallbladder is unremarkable with no evidence of radiopaque gallstones, gallbladder wall thickening, or obvious pericholecystic inflammatory changes.? PANCREAS: Unremarkable.? SPLEEN: Unremarkable.? ADRENAL GLANDS: Unremarkable.? KIDNEYS AND URETERS: Severe right renal cortical thinning or scarring. Probable small stone in the upper pole the right kidney. 1.8 cm left renal cyst. The left kidney is otherwise normal.? BLADDER: Large right inguinal hernia containing the bladder. The bladder is otherwise normal.? GASTROINTESTINAL TRACT: Large right inguinal hernia containing the cecum and small bowel. No evidence of obstruction. Mild diverticulosis of the colon. No colitis. No ascites or free air. Appendix not seen. ABDOMINAL WALL: Large right inguinal hernia containing cecum, small bowel, bladder and fat. Small umbilical hernia containing fat.? LYMPH NODES: Normal. VASCULAR: There is atherosclerotic disease. No aneurysm. PELVIC VISCERA: Unremarkable.? OSSEOUS STRUCTURES: Heterogeneous lesion in the left femoral intertrochanteric region that is stable. Degenerative changes of the spine. No fracture or dislocation. CT/CT abdomen pelvis wo IV con IMPRESSION: No acute findings. Large right inguinal hernia containing the cecum, small bowel and bladder. Severe renal cortical thinning and scarring of the right kidney. Small right renal stones. Small left renal cyst. Diverticulosis of the colon. ? Fleischner guidelines were followed Dictated By: Alice Degroot MD Signed By: Electronically signed by Alice Degroot MD 04/19/[address] scan C-Spine: Attestation: I personally reviewed and interpreted this imaging study as follows: My impression: No acute process. Radiologist's impression: EXAMINATION: CT CERVICAL SPINE WITHOUT CONTRAST CLINICAL INFORMATION: Fall? COMPARISON: Previous cervical spine CT June 2019? TECHNIQUE: Axial images through the cervical spine without contrast. Sagittal and coronal reconstructions on the technologist workstation were performed. ? This CT examination was performed using dose optimization techniques as appropriate, variously including the following: *Automated exposure control *Adjustment of mA and/or kV according to patient size (this includes techniques or standardized protocols for targeted exams where dose is matched to indication/reason for exam; i.e. extremities or head) *Use of iterative reconstruction technique DLP: 4-0 mGy-cm FINDINGS: Bone alignment is normal. No fracture or dislocation is seen. There is multilevel degenerative spondylosis and degenerative disc disease. There are degenerative changes at the C1 dens and attenuation. Prevertebral soft tissues are normal. There is left carotid calcification. Visualized lung apices are clear.? CT/CT cervical spine wo IV con IMPRESSION: Degenerative changes. No fracture or dislocation? ? Fleischner guidelines were followed. Dictated By: Alice Degroot MD Signed By: Electronically signed by Alice Degroot MD 04/19/[address] scan - head: Attestation: I personally reviewed and interpreted this imaging study as follows: My impression: No acute process. Radiologist's impression: EXAMINATION: CT HEAD WITHOUT CONTRAST CLINICAL INFORMATION: Fall? COMPARISON: Previous head CT June 2019 TECHNIQUE: Contiguous axial imaging was performed from the skull base to vertex without intravenous administration of contrast. This CT examination was performed using dose optimization techniques as appropriate, variously including the following: *Automated exposure control *Adjustment of mA and/or kV according to patient size (this includes techniques or standardized protocols for targeted exams where dose is matched to indication/reason for exam; i.e. extremities or head) *Use of iterative reconstruction technique DLP: 766 mGy-cm FINDINGS: There is no evidence of an extra-axial collection. There is no evidence of intra-axial or extra-axial hemorrhage. The ventricles and extra-axial CSF spaces are prominent suggestive of generalized atrophy. There is nonspecific periventricular white matter disease. There is an old left thalamic lacunar infarct. No mass, mass effect or acute infarct is seen. There is evidence of atherosclerotic disease. Review at bone windows is normal. No skull fracture is seen. Paranasal sinuses, mastoid air cells and middle ears are clear. ? CT/CT head/brain wo IV con IMPRESSION: No acute findings. Generalized atrophy, old left thalamic lacunar infarct and nonspecific periventricular white matter disease. Dictated By: Alice Degroot MD Signed By: Electronically signed by Alice Degroot MD 04/19/[address] scan - chest: Attestation: I personally reviewed and interpreted this imaging study as follows: My impression: No acute process. Radiologist's impression: EXAMINATION: CT CHEST WITHOUT CONTRAST CLINICAL INFORMATION: Fall? COMPARISON: Previous chest x-ray most recent June 2019? TECHNIQUE: Multidetector volumetric CT imaging of the chest was done. Axial MIP volume rendering provided. Sagittal and coronal reformatted images were obtained.? This CT examination was performed using dose optimization techniques as appropriate, variously including the following: *Automated exposure control *Adjustment of mA and/or kV according to patient size (this includes techniques or standardized protocols for targeted exams where dose is matched to indication/reason for exam; i.e. extremities or head) *Use of iterative reconstruction technique DLP: 4-0 mGy-cm FINDINGS: LUNGS: There is subsegmental atelectasis at the left lung base. The lungs are otherwise clear. MEDIASTINUM: The heart is enlarged. There is coronary artery calcification. The thoracic aorta is normal in caliber. There are no enlarged lymph nodes. No mediastinal fluid collection or abnormal air collection.? PLEURA: There is no pleural effusion. No pleural mass or thickening. No pneumothorax. AXILLA: No lymphadenopathy.? UPPER ABDOMEN: See CT of the abdomen and pelvis from the same day? OSSEOUS STRUCTURES: There are degenerative changes of the spine and shoulders. No fracture.? CT/CT chest wo IV con IMPRESSION: No acute findings. Subsegmental atelectasis at the left lung base. Enlarged heart and coronary artery calcification.? ? Fleischner guidelines were followed. Dictated By: Alice Degroot MD Signed By: Electronically signed by Alice Degroot MD 04/19/22 8212 Discharge Plan Discharge Clinical Impression: Fall Patient Disposition: Home, Self-Care Additional Instructions: Follow up with your primary care provider. Return to the emergency department immediately if your symptoms worsen or if you develop any dizziness, shortness of breath, difficulty breathing, chest pain, blurry vision, loss of vision, nausea, vomiting, abdominal pain, fever, chills, back pain, or any other complaints. Prescriptions: No Action rosuvastatin [Crestor] 10 mg tablet 10 mg PO DAILY 90 Days Qty: 90 2RF lisinopril 2.5 mg tablet 2.5 mg PO DAILY 90 Days Qty: 90 2RF amlodipine 10 mg tablet 10 mg PO DAILY 90 Days Qty: 90 2RF furosemide 20 mg tablet 20 mg PO DAILY 90 Days Qty: 90 2RF folic acid 1 mg tablet 1 mg PO DAILY Qty: 90 3RF aspirin [Adult Low Dose Aspirin] 81 mg tablet,delayed release (DR/EC) 81 mg PO DAILY (DME) [facility] [place] See Rx Instructions .ROUTE .MEDSUPPLY Qty: 1 0RF Rx Instructions: As directed clotrimazole 1 % cream 1 appl topical BID 28 Days Qty: 45 0RF nystatin 100,000 unit/gram powder 1 appl topical DAILY Qty: 60 0RF Referrals: Po,Umm Gan MD [Primary Care Provider] - Print Language: Turkmen
[2022-04-19 10:45] VITALS: BP 108/46; PULSE 59; RESP 16; TEMP 36.9; O2SAT 99
[2022-04-19 12:43] LABS: MANUAL DIFF FLAG NO
[2022-04-19 12:49] LABS: Basophils Percent Auto 0.4 % (0-2); Eosinophils Absolute Auto 0.2 X10*3/uL (0.0-0.4); Eosinophils Percent Auto 2.8 % (0-4); Hematocrit 41.2 % (42.0-52.0); Hemoglobin 13.8 g/dl (14.0-18.0); Imm Gran Abs Auto 0.01 X10*3/uL (0.00-0.03); Imm Gran Pct Auto 0.1 % (0.0-0.4); Lymphocytes Absolute Auto 2.1 X10*3/uL (1.2-4.9); Lymphocytes Percent Auto 29.9 % (20-40); Mean Corpuscular HGB Conc 33.5 g/dl (31.0-36.0); Mean Corpuscular Hemoglobin 30.2 pg (27.0-33.0); Mean Corpuscular Volume 90.2 fL (80.0-98.0); Mean Platelet Volume 10.6 fL (9.4-12.4); Monocytes Absolute Auto 0.5 X10*3/uL (0.1-1.2); Monocytes Percent Auto 7.3 % (2-11); Neutrophils Absolute Auto 4.1 x10*3/uL (2.0-8.3); Neutrophils Percent Auto 59.5 % (45-73); Platelet Count 157 X10*3/uL (160-400); Red Blood Count 4.57 X10*6/uL (4.60-5.80); White Blood Count 6.9 X10*3/uL (4.8-10.8)
[2022-04-19 13:20] LABS: Alanine Aminotransferase 15 U/L (0-40); Albumin Level 4.8 g/dL (3.5-5.0); Alkaline Phosphatase 65 U/L (39-117); Anion Gap 19 (12-20); Aspartate Amino Transferase 20 U/L (5-37); Bilirubin Total 0.9 mg/dL (0.0-1.0); Blood Urea Nitrogen 43 mg/dL (9-16); Calcium 9.9 mg/dL (8.4-10.2); Carbon Dioxide 23 mmol/L (22-29); Chloride 104 mmol/L (96-108); Creatinine Clr Calc Pharmacy 29.8; Estimated Glomerular Filt Rate 33; Glucose Random 106 mg/dL (60-115); Magnesium 2.6 mg/dL (1.6-2.6); Sodium 141 mmol/L (135-145); Total Protein 8.3 g/dL (6.5-8.0)
[2022-04-19 16:00] VITALS: BP 151/70; PULSE 74; RESP 16; TEMP 36.6; O2SAT 98
--- NOTE | 2022-04-19 17:04 | PC.NURSE ---
Rn and daughter attempted to get patient up from bed for DC. patient unable to stand/get himself to edge of bed. PA also witnessed. explained to patient with seismic interpreter that patient needs to stay for PT eval in morning. patient agreeable.
--- NOTE | 2022-04-19 17:10 | PHA.MEDREC ---
Pharmacy Consult ? Medication Reconciliation Pharmacy has completed the medication reconciliation. Client Business Manager used. Daughter at bedside, confirmed list. Daughter said that his metoprolol has been recently d/c
--- NOTE | 2022-04-19 19:34 | MHC.CM.ED ---
Addendum entered by Shahana Parkinson 04/19/22 21:30: CM was able to speak with daughter Malorie Bahena ([phone]). She was not willing to be her father's HCP, as she is her mother's HCP. Malorie is also her father's CAT SCANNER OPERATOR. Pt is agreeable to having his daughter, Cyndi Bahena ([phone]) to be his HCP and Cyndi is agreeable. HCP was edited, copies given and uploaded into [employer] and [employer]. Both daughter's are agreeable to STR if recommended by PT and are requesting facilities in [place] first, and then locally. Referrals placed. Original Note: CM met with patient with Chemical Process Operator, as pt is Palestinian speaking only. Pt with a history of increasing falls. Daughter is concerned. Pt lives alone. Has CAT SCANNER OPERATOR 2 hours in the morning and 2 hours in the evening. Daughter also helps care for him. Pt has a walker and a cane, but does not use the cane. Pt was unable to stand. Is now agreeable to PT assessment and STR in a facility if recommended. Pt has no choices. Will refer locally. HCP reviewed, completed and signed. HCP/daughter Malorie Bahena ([phone]). Copies given. Uploaded into [employer] and [employer]. Vax/boosted x1/[employer]. Will attempt to speak with daughter regarding choices for facilities. CM to follow for d/c needs.
[2022-04-19 22:32] LABS: COVID-19 Test Negative (Negative)
[2022-04-20] VITALS: BP 123/61; PULSE 63; RESP 18; TEMP 36.6; O2SAT 95
--- NOTE | 2022-04-20 04:26 | PC.NURSE ---
I assumed nursing care of Rio at 2300. Rio is awaiting a PT/CM eval and verbalizes an understanding of this. Since I arrived he has been sleeping in a hallway stretcher, arousable to verbal stimuli. he has requested assistance with voiding into urinal x 2. he requires 1 minimal assist to set up urinal while he voids while lying in bed. No chest pain. Respirations non-labored, RR WNL, no cyanosis, room air sat's WNL. We will continue to monitor Rio.
[2022-04-20 06:18] VITALS: BP 128/61; PULSE 57; RESP 14; O2SAT 98
--- NOTE | 2022-04-20 09:05 | PC.NURSE ---
Provider notified about patients blood pressure.
[2022-04-20 09:23] VITALS: BP 119/53
[2022-04-20] MEDS: lisinopriL 2.5 MG TABLET PO (09:23)
[2022-04-20] MEDS: amLODIPine Besylate 5 MG TABLET PO (09:24)
[2022-04-20] MEDS: Aspirin Enteric Coated 81 MG TABLET.DR PO (09:24)
[2022-04-20] MEDS: Atorvastatin Calcium 40 MG TABLET PO (09:24)
[2022-04-20] MEDS: Furosemide 20 MG TABLET PO (09:25)
[2022-04-20] MEDS: Folic Acid 1 MG TABLET PO (09:25)
--- NOTE | 2022-04-20 09:26 | MHC.CM.ED ---
Addendum entered by Negrita Rogel 04/20/22 09:58: [facility] is able to offer a bed at this time. Spoke with Cyndi via telephone at [phone], with the help of the bottle booth attendant. She accepts bed. Betina Harley made aware. Original Note: Patient remains in ER. Physical therapy eval completed. Short term rehab is recommended. Clinical updates sent to all referrals in [facility]. Patient and family want to remain in [place]. Continue to monitor for d/c needs.
--- NOTE | 2022-04-20 11:19 | MHC.CM.ED ---
Insurance auth has been obtained by Betina Harley [facility]. Patient can leave at 1pm. [facility] BLS booked. Med nec with chart. Patient, daughter Moises Hanna RN and Patricia BOYCE aware. Continue to monitor for d/c needs.
== END 2022-04-20 13:30 | disposition skilled nursing facility (03) ==
PROVIDERS: Physician Assistant; Physician Assistant Medical; Emergency Provider Emergency Medicine Emergency Medical Services; PCP Internal Medicine
DX: R07.81 Pleurodynia (principal); M25.561 Pain in right knee; R42 Dizziness and giddiness; R26.2 Difficulty in walking, not elsewhere classified; R51.9 Headache, unspecified; M54.2 Cervicalgia; M54.6 Pain in thoracic spine; Z20.822 Contact with and (suspected) exposure to COVID-19; Z79.899 Other long term (current) drug therapy
CPT/HCPCS: 36415; 70450; 71250; 72125; 73560; 74176; 80053; 82550; 83735; 85025; 87635; 97162; 99284; 99285

== ENCOUNTER 2022-08-16 12:47 | Emergency (ER) | payer OTHER, SELFPAY ==
--- NOTE | ~2022-08-16 | CT_ITS ---
EXAMINATION: CT ABDOMEN AND PELVIS WITHOUT CONTRAST CLINICAL INFORMATION: Enlarged prostate COMPARISON: 04/19/2022 TECHNIQUE: Multidetector volumetric imaging was performed from the superior aspect of the liver through the pubic symphysis. Sagittal and coronal reformatted images were obtained on the technologist's workstation. This CT examination was performed using dose optimization techniques as appropriate, variously including the following: *Automated exposure control *Adjustment of mA and/or kV according to patient size (this includes techniques or standardized protocols for targeted exams where dose is matched to indication/reason for exam; i.e. extremities or head) *Use of iterative reconstruction technique DLP: 666 mGy-cm FINDINGS: LUNG BASES: Some chronic basilar markings LIVER, GALLBLADDER, AND BILIARY TREE: The liver is normal in size, shape, and attenuation. No focal hepatic lesion or biliary ductal dilatation is present. Probable small gallstone within the gallbladder PANCREAS: Unchanged in appearance SPLEEN: Unremarkable. ADRENAL GLANDS: Unremarkable. KIDNEYS AND URETERS: Once again atrophic right-sided kidney. Low-density structures associated with the left kidney may well represent cystic change. Exophytic superior lesion difficult to characterize. Recommend ultrasound to confirm. BLADDER: Once again some thickening of the bladder wall GASTROINTESTINAL TRACT: Bowel pattern is nonobstructing. Some diverticular disease is noted. Moderate rectosigmoid stool similar to previous. No free fluid. ABDOMINAL WALL: Once again herniation in the right inguinal region containing large and small bowel. Also bladder. This is not causing obstruction.. Small Umbilical herniation of omental fat is also seen LYMPH NODES: Normal. VASCULAR: Atherosclerotic changes. No aneurysmal change. PELVIC VISCERA: Prostate demonstrates once again calcification. Unchanged from previous OSSEOUS STRUCTURES: Once again some degenerative change in the SI joints and some ankylosis on the right Stable-appearing sclerotic density proximal left femur with areas of lucency. Etiology indeterminate. CT/CT abdomen pelvis wo IV con IMPRESSION: No acute finding. Prostate does not appear markedly enlarged but I would recommend ultrasound for complete evaluation. Once again large right inguinal hernia containing bowel, bladder similar to previous. This is not causing an obstruction. Atrophic right kidney. Probable cystic change on the left kidney but difficult to completely qualify an exophytic lesion off the superior aspect of the left kidney is a cyst. I would recommend ultrasound for full evaluation. Fleischner guidelines were followed.
[2022-08-16 13:53] VITALS: BP 120/45; BP 120/73; PULSE 59; PULSE 60; RESP 18; TEMP 36.8; O2SAT 98; O2SAT 99; BMI 27.4
--- NOTE | 2022-08-16 14:26 | ED.GENADULT ---
HPI - General Adult General Chief complaint: General Medical Stated complaint: SCROTUM SWELLING Time Seen by Provider: 08/16/22 14:18 Source: patient and EMS Mode of arrival: ambulatory Limitations: other History of Present Illness HPI narrative: 72 year old male with scrotal swelling. This was found while at adult day care. He has no complaints. He has baseline dementia and is unable to tell me how long it has been like this. He denies any change in diet able to urinate normally. Related Data Home Medications Medication Instructions Recorded Confirmed aspirin 81 mg tablet,delayed 81 mg PO DAILY 11/15/20 05/22/22 release (Adult Low Dose Aspirin) Previous Rx's Medication Instructions Recorded walker #1 ea 11/15/20 amlodipine 10 mg tablet 10 mg PO DAILY 90 days #90 tabs 11/09/21 lisinopril 2.5 mg tablet 2.5 mg PO DAILY 90 days #90 tabs 11/09/21 rosuvastatin 10 mg tablet (Crestor) 10 mg PO DAILY 90 days #90 tabs 11/09/21 folic acid 1 mg tablet 1 mg PO DAILY #90 tabs 02/14/22 furosemide 20 mg tablet 20 mg PO DAILY 90 days #90 tabs 02/14/22 lidocaine 4 % topical patch 1 patch topical DAILY PRN pain #15 05/22/22 (Aspercreme (lidocaine)) ea AFO prosthetic #1 ea 06/05/22 Allergies Allergy/AdvReac Type Severity Reaction Status Date / Time No Known Allergies Allergy Verified 05/22/22 14:13 Review of Systems Review of Systems: Review of systems: General: Patient denies any fever chills recent illness or falls Musculoskeletal: Denies back pain or body aches or other injuries HEENT: denies headache, runny nose, ear pain Respiratory: denies shortness of breath, cough Cardiovascular: no chest pain or palpitations : denies dysuria, frequency Abdomen: no nausea vomiting denies abdominal pain Extremities: no swelling, no pain Skin: no diaphoresis Yes all other systems are reviewed and are negative PMF Past Medical History Medical History CKD (chronic kidney disease) stage 4, GFR 15-29 ml/min History of CVA (cerebrovascular accident) History of IL (myocardial infarction) Hypercholesterolemia Hypertension Right inguinal hernia Thrombocytopenia Type 2 diabetes mellitus with hyperglycemia Umbilical hernia Vitamin D deficiency Surgical History No pertinent past surgical history Family History Family History Father Heart disease Mother No problems noted. Social History Social History Housing: House Alcohol intake: former Patient Tobacco Use Status: Never used Tobacco e-Cigarette/Vaping Use: Never Used Second Hand Smoke Exposure: No Advance Directives: Yes Advance Directives on File: Yes Advance Directives Date on File: 04/20/22 service: No Current occupational status: retired Cognitive needs: Yes (wheel chair ) Hearing needs: No Vision needs: No Physical Exam ED Vital Signs: Vital Signs - 24 hr 08/16/22 13:53 08/16/22 16:00 Temperature 98.2 F 98.2 F Pulse Rate 59 52 Respiratory Rate 18 16 Blood Pressure 120/45 L 106/51 L Pulse Oximetry 98 98 Oxygen Delivery Method Room Air Room Air BMI result Body Mass Index 27.4 General: Well-appearing well-nourished in no signs of distress HEENT: Normocephalic atraumatic Neck: No signs of JVD, no masses no tenderness or lymphadenopathy Cardiovascular: Regular rate and rhythm Respiratory: Clear to auscultation bilaterally Abdomen: Enlarged scrotum and lower abdomen non tender nontender no masses . Extremities: Normal pedal pulses no signs of edema Skin: Dry warm no rashes Back: No tenderness full ROM Medications Administered Discontinued Medications Generic Name Dose Route Start Last Admin Trade Name Ernieq PRN Reason Stop Dose Admin Sodium Chloride 1,000 mls @ 999 mls/hr 08/16/22 14:30 08/16/22 15:09 Ns IV 08/16/22 15:30 999 mls/hr .Q1H1M GUNNAR Administration Medical Decision Making Medical Decision Making MDM Narrative: concern for enlarged scrotum consistent with hernia. Patient looks well still eating drinking and having normal bowel movements. I will send for CT to see the size of the hernia to discuss the plan with the daughter. I did review the old record that shows that the patient had a hernia back in February but it was small and easily reducible this is much too large to be reduced at this time. Labs are all okay I finally called down to radiology after a 4 hour wait for the read and they agreed he is not obstructed. I spoke with Dr. Hawkins who agreed the patient could go home with and see him in the office tomorrow. Differential Diagnosis Differential Diagnoses: The differential diagnosis associated with the presentation includes hernia, incarcerated hernia performation testicular abnormality, bowel obstruction Admission/Observation Consideration of admission/observation: Escalation of care including admission/observation considered Consult Healthcare Provider Management of the patient was discussed with: [place] Dr. Hawkins Lab Data Result Diagrams: 08/16/22 15:04 08/16/22 15:04 Labs: Lab Results 08/16/22 08/16/22 08/16/22 Range/Units 15: 15: 15:04 WBC 5.9 (4.8-10.8) X10*3/uL RBC 4.04 L (4.60-5.80) X10*6/uL Hgb 12.2 L (14.0-18.0) g/dl Hct 36.8 L (42.0-52.0) % MCV 91.1 (80.0-98.0) fL MCH 30.2 (27.0-33.0) pg MCHC 33.2 (31.0-36.0) g/dl RDW 12.8 (11.0-16.0) % Plt Count 171 (160-400) X10*3/uL MPV 10.2 (9.4-12.4) fL Immature Gran % (Auto) 0.3 (0.0-0.4) % Neut % (Auto) 52.7 (45-73) % Lymph % (Auto) 33.5 (20-40) % [place] % (Auto) 8.6 (2-11) % Eos % (Auto) 4.4 H (0-4) % Baso % (Auto) 0.5 (0-2) % Lymph # (Auto) 2.0 (1.2-4.9) X10*3/uL [place] # (Auto) 0.5 (0.1-1.2) X10*3/uL Eos # (Auto) 0.3 (0.0-0.4) X10*3/uL Baso # (Auto) 0.0 (0.0-0.2) X10*3/uL Abs Immat Gran (auto) 0.02 (0.00-0.03) X10*3/uL Absolute Neuts (auto) 3.1 (2.0-8.3) x10*3/uL Absolute Nucleated RBC 0.000 (0.0-0.012) X10*3/uL Nucleated RBC % (auto) 0.0 (0.0-0.2) /100WBC Sodium 138 (135-145) mmol/L Potassium 5.3 H (3.3-5.1) mmol/L Chloride 104 (96-108) mmol/L Carbon Dioxide 26 (22-29) mmol/L Anion Gap 13 (12-20) BUN 42 H (9-16) mg/dL Creatinine 2.19 H (0.5-1.4) mg/dL Estim Creat Clear Calc 28.3 Estimated GFR 30 Random Glucose 113 (60-115) mg/dL Calcium 9.8 (8.4-10.2) mg/dL Total Bilirubin 0.6 (0.0-1.0) mg/dL Direct Bilirubin 0.2 (0.0-0.5) mg/dL AST 16 (5-37) U/L ALT 9 (0-40) U/L Alkaline Phosphatase 66 (39-117) U/L Total Protein 7.6 (6.5-8.0) g/dL Albumin 4.5 (3.5-5.0) g/dL Urine Color Yellow Urine Appearance Clear Urine pH 5.5 (5.0-9.0) Ur Specific [place] 1.010 (1.005-1.025) Urine Protein Negative (Neg-Trace) mg/dL Urine Glucose (UA) Negative (Negative) mg/dL Urine Ketones Negative (Negative) mg/dL Urine Blood Negative (Negative) Urine Nitrite Negative (Negative) Ur Leukocyte Esterase Negative (Negative) Discharge Plan Discharge Clinical Impression: Right inguinal hernia Patient Disposition: Home, Self-Care Instructions: Inguinal Hernia (ED) Additional Instructions: Por favor llama a smooth [place] Prescriptions: No Action rosuvastatin [Crestor] 10 mg tablet 10 mg PO DAILY 90 Days Qty: 90 2RF lisinopril 2.5 mg tablet 2.5 mg PO DAILY 90 Days Qty: 90 2RF amlodipine 10 mg tablet 10 mg PO DAILY 90 Days Qty: 90 2RF furosemide 20 mg tablet 20 mg PO DAILY 90 Days Qty: 90 2RF folic acid 1 mg tablet 1 mg PO DAILY Qty: 90 3RF (DME) AFO prosthetic See Rx Instructions .Route .MEDSUPPLY Qty: 1 0RF Rx Instructions: As directed aspirin [Adult Low Dose Aspirin] 81 mg tablet,delayed release (DR/EC) 81 mg PO DAILY (DME) walker Misc See Rx Instructions .ROUTE .MEDSUPPLY Qty: 1 0RF Rx Instructions: As directed lidocaine [Aspercreme (lidocaine)] 4 % adhesive patch,medicated 1 patch topical DAILY PRN (Reason: pain) Qty: 15 0RF Referrals: Jorge Miguel MD [Physician] -
[2022-08-16] MEDS: 0.9 % Sodium Chloride 1,000 ML 999 ML IV (15:09)
[2022-08-16 15:11] LABS: MANUAL DIFF FLAG NO
[2022-08-16 15:13] LABS: Basophils Percent Auto 0.5 % (0-2); Eosinophils Absolute Auto 0.3 X10*3/uL (0.0-0.4); Eosinophils Percent Auto 4.4 % (0-4); Hematocrit 36.8 % (42.0-52.0); Hemoglobin 12.2 g/dl (14.0-18.0); Imm Gran Abs Auto 0.02 X10*3/uL (0.00-0.03); Imm Gran Pct Auto 0.3 % (0.0-0.4); Lymphocytes Percent Auto 33.5 % (20-40); Mean Corpuscular HGB Conc 33.2 g/dl (31.0-36.0); Mean Corpuscular Hemoglobin 30.2 pg (27.0-33.0); Mean Corpuscular Volume 91.1 fL (80.0-98.0); Mean Platelet Volume 10.2 fL (9.4-12.4); Monocytes Absolute Auto 0.5 X10*3/uL (0.1-1.2); Monocytes Percent Auto 8.6 % (2-11); Neutrophils Absolute Auto 3.1 x10*3/uL (2.0-8.3); Neutrophils Percent Auto 52.7 % (45-73); Platelet Count 171 X10*3/uL (160-400); Red Blood Count 4.04 X10*6/uL (4.60-5.80); Red Cell Distribution Width 12.8 % (11.0-16.0); White Blood Count 5.9 X10*3/uL (4.8-10.8)
[2022-08-16 15:26] LABS: Appearance Urine Clear; Color Urine Yellow; Glucose Urine UA Negative (Negative); Leukocyte Esterase Urine Negative (Negative); Nitrite Urine Negative (Negative); PH 5.5 (5.0-9.0); Urine Blood Negative (Negative); Urine Ketones Negative (Negative); Urine Protein Negative (Neg-Trace)
[2022-08-16 15:28] LABS: Alanine Aminotransferase 9 U/L (0-40); Albumin Level 4.5 g/dL (3.5-5.0); Alkaline Phosphatase 66 U/L (39-117); Anion Gap 13 (12-20); Aspartate Amino Transferase 16 U/L (5-37); Bilirubin Direct 0.2 mg/dL (0.0-0.5); Bilirubin Total 0.6 mg/dL (0.0-1.0); Blood Urea Nitrogen 42 mg/dL (9-16); Calcium 9.8 mg/dL (8.4-10.2); Carbon Dioxide 26 mmol/L (22-29); Chloride 104 mmol/L (96-108); Creatinine Clr Calc Pharmacy 28.3; Estimated Glomerular Filt Rate 30; Glucose Random 113 mg/dL (60-115); Potassium 5.3 mmol/L (3.3-5.1); Sodium 138 mmol/L (135-145); Total Protein 7.6 g/dL (6.5-8.0)
[2022-08-16 16:00] VITALS: BP 106/51; PULSE 52; RESP 16; TEMP 36.8; O2SAT 98
[2022-08-16 18:24] VITALS: BP 120/51; PULSE 59; RESP 16; TEMP 36.9; O2SAT 97
== END 2022-08-16 18:39 | disposition home or self-care (01) ==
PROVIDERS: Emergency Provider Student in an Organized Health Care Education/Training Program; PCP Internal Medicine
DX: K40.90 Unilateral inguinal hernia, without obstruction or gangrene, not specified as recurrent (principal); N40.0 Benign prostatic hyperplasia without lower urinary tract symptoms; R10.9 Unspecified abdominal pain; Z79.899 Other long term (current) drug therapy
CPT/HCPCS: 36415; 74176; 80048; 80076; 81003; 85025; 99283; 99284

== ENCOUNTER 2022-08-18 09:47 | Outpatient (REF) | payer OTHER, SELFPAY ==
[2022-08-18 10:26] LABS: MANUAL DIFF FLAG NO
[2022-08-18 11:07] LABS: Basophils Percent Auto 0.6 % (0-2); Eosinophils Absolute Auto 0.2 X10*3/uL (0.0-0.4); Eosinophils Percent Auto 4.4 % (0-4); Hematocrit 39.4 % (42.0-52.0); Hemoglobin 12.9 g/dl (14.0-18.0); Imm Gran Abs Auto 0.02 X10*3/uL (0.00-0.03); Imm Gran Pct Auto 0.4 % (0.0-0.4); Immature Retic Fraction 7.2 % (2.3-13.4); Lymphocytes Absolute Auto 1.9 X10*3/uL (1.2-4.9); Lymphocytes Percent Auto 36.6 % (20-40); Mean Corpuscular HGB Conc 32.7 g/dl (31.0-36.0); Mean Corpuscular Hemoglobin 30.2 pg (27.0-33.0); Mean Corpuscular Volume 92.3 fL (80.0-98.0); Monocytes Absolute Auto 0.3 X10*3/uL (0.1-1.2); Monocytes Percent Auto 6.1 % (2-11); Neutrophils Absolute Auto 2.7 x10*3/uL (2.0-8.3); Neutrophils Percent Auto 51.9 % (45-73); Platelet Count 184 X10*3/uL (160-400); Red Blood Count 4.27 X10*6/uL (4.60-5.80); Red Cell Distribution Width 12.9 % (11.0-16.0); Retic HGB Equivalent 34.6 pg (30.0-35.0); Reticulocyte Percent 1.3 % (0.5-1.8); Reticulocytes Absolute 0.053 X10*6/uL (0.026-0.095); White Blood Count 5.3 X10*3/uL (4.8-10.8)
[2022-08-18 11:13] LABS: Estimated Average Glucose 117 mg/dL; Hemoglobin A1c % 5.7 %
[2022-08-18 11:36] LABS: Alanine Aminotransferase 10 U/L (0-40); Albumin Level 4.5 g/dL (3.5-5.0); Alkaline Phosphatase 67 U/L (39-117); Anion Gap 15 (12-20); Aspartate Amino Transferase 16 U/L (5-37); Bilirubin Total 0.7 mg/dL (0.0-1.0); Blood Urea Nitrogen 36 mg/dL (9-16); Carbon Dioxide 25 mmol/L (22-29); Chloride 106 mmol/L (96-108); Cholesterol 126 mg/dL; Estimated Glomerular Filt Rate 36; Glucose Random 115 mg/dL (60-115); HDL Cholesterol 43 mg/dL; Iron 93 mcg/dL (45-160); LDL Cholesterol Calculated 60 mg/dl; Percent Iron Saturation 35 % (15-50); Potassium 4.7 mmol/L (3.3-5.1); Sodium 141 mmol/L (135-145); Total Iron Binding Capacity 262 mcg/dL (228-428); Total Protein 7.7 g/dL (6.5-8.0); Triglycerides 115 mg/dL; Unsaturated Iron Binding 169 ug/dL
[2022-08-18 11:57] LABS: Ferritin 106 ng/mL (20-250); Free T4 (Free Thyroxine) 1.04 ng/dL (0.71-1.85); Thyroid Stimulating Hormone 2.35 uIU/mL (0.32-4.0)
[2022-08-18 12:10] LABS: Folate > 20.0 ng/mL (> or = 4.0); Vitamin B12 183 pg/mL (200-900)
== END 2022-08-18 09:48 | disposition home or self-care (01) ==
LOC: HO.LAB 09:47
PROVIDERS: Visit Provider Internal Medicine
DX: E11.65 Type 2 diabetes mellitus with hyperglycemia (principal); E78.00 Pure hypercholesterolemia, unspecified
CPT/HCPCS: 36415; 80053; 80061; 82607; 82728; 82746; 83036; 83540; 84439; 84443; 85025; 85045

== ENCOUNTER 2022-08-22 14:47 | Outpatient (REF) | payer OTHER, SELFPAY ==
[2022-08-22 17:29] LABS: Creatinine Urine 60.48 mg/dL; Microalbum/Creatinine Ratio Ur 107.4 ug/mg cr
== END 2022-08-22 14:48 | disposition home or self-care (01) ==
LOC: HO.LAB 14:47
PROVIDERS: PCP Internal Medicine; Visit Provider Surgery
DX: K40.90 Unilateral inguinal hernia, without obstruction or gangrene, not specified as recurrent (principal); E53.8 Deficiency of other specified B group vitamins; E11.65 Type 2 diabetes mellitus with hyperglycemia; I12.9 Hypertensive chronic kidney disease with stage 1 through stage 4 chronic kidney disease, or unspecified chronic kidney disease; N18.4 Chronic kidney disease, stage 4 (severe); E11.22 Type 2 diabetes mellitus with diabetic chronic kidney disease; I25.10 Atherosclerotic heart disease of native coronary artery without angina pectoris; I25.2 Old myocardial infarction; Z86.73 Personal history of transient ischemic attack (TIA), and cerebral infarction without residual deficits
CPT/HCPCS: 36415; 82043; 84134; 99202

== ENCOUNTER → 2022-10-03 14:59 | Outpatient (BNVA) | payer OTHER, SELFPAY | PROVIDERS: PCP Internal Medicine; Referring Provider Internal Medicine; Visit Provider Internal Medicine | DX: I25.10 Atherosclerotic heart disease of native coronary artery without angina pectoris (principal); I44.0 Atrioventricular block, first degree; I12.9 Hypertensive chronic kidney disease with stage 1 through stage 4 chronic kidney disease, or unspecified chronic kidney disease; N18.4 Chronic kidney disease, stage 4 (severe); E78.00 Pure hypercholesterolemia, unspecified; I25.2 Old myocardial infarction; Z86.73 Personal history of transient ischemic attack (TIA), and cerebral infarction without residual deficits; Z79.82 Long term (current) use of aspirin; Z79.899 Other long term (current) drug therapy | CPT/HCPCS: 93005; 99212 ==

== ENCOUNTER 2023-05-30 14:50 | Outpatient (AMB) | payer OTHER, SELFPAY ==
[2023-05-30 15:01] VITALS: BP 108/62; PULSE 60; O2SAT 97; BMI 27.6
--- NOTE | 2023-05-30 15:01 | MHC.PC.OV ---
Vital Signs 05/30/23 15:01 Height 5 ft 5 in Weight 166 lb BMI 27.6 BP 108/62 Blood Pressure Location Lt brachial Position Sitting Pulse 60 Pulse Source Pulse Oximeter Pulse Oximetry (%) 97 Oxygen Delivery Method Room Air Intake Visit Reasons: DM Intake Note: Patient here for a follow up DM Motor Expert Required: Yes Motor Expert Language: Nepali Accompanied by: Daughter Allergies No Known Allergies Allergy (Verified 05/30/23 15:05) Tobacco use date assessed: 08/20/22 Fall risk assessment: No Falls in past year Last assessed Fall Risk: 05/30/23 Dental Screening Dental Screen Date: 05/30/23 Did you have a dental visit in the last 12 months?: No Did you have a dental problem in the last 6 months where you did not have access to dental care?: No Was dental information given to patient?: Patient declined HPI DM HPI Details 73-year-old Overweight male with controlled diabetes mellitus history of CVA chronic kidney disease coronary artery disease hypertension hypercholesterolemia coming in for follow-up. Last seen in February 2023. Declined colonoscopy patient had flu shot already discussed about COVID shot otherwise no other problems. [facility] Medical History (Updated 05/30/23 @ 15:49 by Umm Mckeon MD) Rash of groin Atherosclerotic cardiovascular disease Colon cancer screening Coronary artery disease Umbilical hernia Right inguinal hernia History of DC (myocardial infarction) CKD (chronic kidney disease) stage 4, GFR 15-29 ml/min Thrombocytopenia Vitamin D deficiency History of CVA (cerebrovascular accident) Hypertension Hypercholesterolemia Type 2 diabetes mellitus with hyperglycemia Surgical History No pertinent past surgical history Family History Father Heart disease Mother No problems noted. Social History Housing: House Alcohol intake: former Patient Tobacco Use Status: Never used Tobacco e-Cigarette/Vaping Use: Never Used Second Hand Smoke Exposure: No Advance Directives Date on File: 04/20/22 service: No Current occupational status: retired Cognitive needs: Yes (wheel chair ) Hearing needs: No Vision needs: No Questionnaire Thrive Questionnaire Date Thrive assessed: 08/20/22 ROSEMARY-7 AMB Questionnaire ROSEMARY-7 Date ROSEMARY - 7 assessed: 08/20/22 Source: Developed by Drs. Anoop Hartmann, Aubrie Eli, Corbin Shukla and colleagues, with an educational dalia from [employer]. Physical exam (Primary Care) Vital Signs: Last Vital Signs Pulse 60 05/30/23 15:01 BP 108/62 05/30/23 15:01 Pulse Ox 97 05/30/23 15:01 Oxygen Delivery Method Room Air 05/30/23 15:01 BMI result Body Mass Index 27.6 Tobacco/Smoking Status: Tobacco use Status Tobacco use date assessed 08/20/22 05/30/23 15:09 Patient Tobacco Use Status Never used Tobacco 05/30/23 15:09 e-Cigarette/Vaping Use Never Used 05/30/23 15:09 Thrive Assessment: Date of Thrive Assessment Date Thrive assessed 08/20/22 05/30/23 15:09 Const General: alert; No acute distress Eyes Conjunctivae: conjunctivae normal Resp Auscultation: clear to auscultation bilaterally Cardio Rate: regular rate Rhythm: regular rhythm GI Inspection: Yes normal to inspection Extrem Other: Bilateral lower extremity swelling 1+ and left-sided 4/5 lower extremity as well as upper extremity General: Yes edema Results AMB Hemoglobin A1c AMB Hemoglobin A1c 6.2 % Last Edit by GEORGINA Singh on 05/30/23 15:25 Results Reviewed Results Reviewed: Laboratory Last Values Hgb A1c (Clinic) 6.2 % (4.0-6.0) H 05/30/23 15:20 Assessment and Plan Assessment & Plan (1) Type 2 diabetes mellitus with hyperglycemia: Code(s): E11.65 - Type 2 diabetes mellitus with hyperglycemia Qualifiers: Diabetes mellitus snf insulin use: without snf use Qualified Code(s): E11.65 - Type 2 diabetes mellitus with hyperglycemia Plan: Decrease the amount of carbohydrate intake, pasta, bread, rice and potatoes are all sugar and that is aside from all the sweet stuff, remember that fruits are good but they are Sweet also. Hemoglobin A1c goal of less than 7.0 patient is on diet control (2) Hypercholesterolemia: Code(s): E78.00 - Pure hypercholesterolemia, unspecified Plan: Avoid fried foods, chicken skin, eggs, butter margarine, pastries and meat. Be it pork or beef they have a lot of cholesterol LDL goal of less than 70 and triglyceride of less than 150. Patient is on Crestor 10 mg once a day (3) Hypertension: Code(s): I10 - Essential (primary) hypertension Qualifiers: Hypertension type: essential hypertension Qualified Code(s): I10 - Essential (primary) hypertension Plan: Continue with blood pressure medication. Decrease salt intake and exercise patient on amlodipine 10 mg once a day lisinopril 2.5 mg once a day (4) CKD (chronic kidney disease) stage 4, GFR 15-29 ml/min: Code(s): N18.4 - Chronic kidney disease, stage 4 (severe) Plan: Keep well hydrated avoid NSAIDs (5) History of CVA (cerebrovascular accident): Comment: Left-sided weakness April 2009 Code(s): Z86.73 - Personal history of transient ischemic attack (TIA), and cerebral infarction without residual deficits Plan: Continue with aspirin. Control the cholesterol, weight, blood pressure, diabetes (6) Atherosclerotic cardiovascular disease: Code(s): I25.10 - Atherosclerotic heart disease of [place] coronary artery without angina pectoris Plan: Control the cholesterol, weight, blood pressure, diabetes (7) Blister of foot, right: Code(s): S90.821A - Blister (nonthermal), right foot, initial encounter Orders: Orders Microalbumin, Random (w Creat) Today E11.65 - Type 2 diabetes mellitus with hyperglycemia AMB Hemoglobin A1c Today E11.65 - Type 2 diabetes mellitus with hyperglycemia Creatinine Urine Today E11.65 - Type 2 diabetes mellitus with hyperglycemia Coding Level of Care Code Est Pt Level 4 (63022) Diagnoses Type 2 diabetes mellitus with hyperglycemia, without long-term current use of insulin E11.65 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
== END 2023-05-30 15:59 | disposition home or self-care (01) ==
PROVIDERS: PCP Internal Medicine; Visit Provider Internal Medicine
DX: E11.65 Type 2 diabetes mellitus with hyperglycemia (principal); E78.00 Pure hypercholesterolemia, unspecified; I12.9 Hypertensive chronic kidney disease with stage 1 through stage 4 chronic kidney disease, or unspecified chronic kidney disease; N18.4 Chronic kidney disease, stage 4 (severe); Z86.73 Personal history of transient ischemic attack (TIA), and cerebral infarction without residual deficits; I25.10 Atherosclerotic heart disease of native coronary artery without angina pectoris; S90.821A Blister (nonthermal), right foot, initial encounter; Z23 Encounter for immunization
CPT/HCPCS: 83036; 90471; 90677; 99214

== ENCOUNTER 2023-07-24 14:59 | Outpatient (AMB) | payer OTHER, SELFPAY ==
[2023-07-24 15:13] VITALS: BP 118/60; PULSE 59; O2SAT 96; BMI 26.6
--- NOTE | 2023-07-24 15:13 | HO.NEPHOV_ITS ---
HPI HPI Comments History of Present Illness Details I had the privilege of seeing Rio in follow-up of his chronic kidney disease and hypertension. His history of CVA. He does not have any new neurological symptoms or deficits. He is compliant with his medications. He does not have any orthostatic symptoms. He is ambulating with a walker at home. He denies chest pain, shortness of breath, nausea vomiting, diarrhea, urinary symptoms or pedal edema. He avoids nonsteroidal anti-inflammatory medication and maintain good hydration. He has not had any blood work done for long time. He did not have any specific new complaints at the time of this office visit. [facility] Medical History (Updated 05/30/23 @ 15:49 by Umm Mckeon MD) Rash of groin Atherosclerotic cardiovascular disease Colon cancer screening Coronary artery disease Umbilical hernia Right inguinal hernia History of MT (myocardial infarction) CKD (chronic kidney disease) stage 4, GFR 15-29 ml/min Thrombocytopenia Vitamin D deficiency History of CVA (cerebrovascular accident) Hypertension Hypercholesterolemia Type 2 diabetes mellitus with hyperglycemia Surgical History No pertinent past surgical history Family History Father Heart disease Mother No problems noted. Social History Housing: House Alcohol intake: former Patient Tobacco Use Status: Never used Tobacco e-Cigarette/Vaping Use: Never Used Second Hand Smoke Exposure: No Advance Directives Date on File: 04/20/22 service: No Current occupational status: retired Cognitive needs: Yes (wheel chair ) Hearing needs: No Vision needs: No Vital Signs 07/24/23 15:13 Height 5 ft 5 in Weight 160 lb BMI 26.6 BP 118/60 Blood Pressure Location Rt brachial Position Sitting Pulse 59 Pulse Source Pulse Oximeter Pulse Oximetry (%) 96 Oxygen Delivery Method Room Air Physical Exam Vital Signs: Last Vital Signs Pulse 59 07/24/23 15:13 BP 118/60 07/24/23 15:13 Pulse Ox 96 07/24/23 15:13 Oxygen Delivery Method Room Air 07/24/23 15:13 BMI result Body Mass Index 26.6 Const General: comfortable and no acute distress Orientation/consciousness: patient oriented x3 HEENT Head: Yes normocephalic Mouth: Normal oral and palatal mucosa present Eyes EOM: EOMs intact bilaterally Neck Neck: Yes supple Resp Auscultation: clear to auscultation bilaterally Cardio Jugular venous distension: no JVD Rate: regular rate GI Palpation (GI): Soft to palpation Auscultation: normal bowel sounds General: Yes no CVA tenderness Back/Spine/Pelvis Back: no CVA tenderness Skin General skin exam: no rashes or lesions noted Neuro Other: Old hemiparesis + General: patient oriented x3 and moves all extremities Extrem General: Yes no pedal edema Assessment & Plan Assessment & Plan (1) CKD (chronic kidney disease) stage 4, GFR 15-29 ml/min: Code(s): N18.4 - Chronic kidney disease, stage 4 (severe) (2) Hypertension: Code(s): I10 - Essential (primary) hypertension Qualifiers: Hypertension type: essential hypertension Qualified Code(s): I10 - Essential (primary) hypertension (3) History of CVA (cerebrovascular accident): Comment: Left-sided weakness April 2009 Code(s): Z86.73 - Personal history of transient ischemic attack (TIA), and cerebral infarction without residual deficits Plan Rio has stage 4 chronic kidney disease due to vascular disease . He has proteinuria. His blood pressure is currently well controlled on current medication regimen. He has history of CVA but has not had any new deficits. He is on PURNIMA-inhibitor. He has not had any blood work recently. He should continue vitamin-D. His blood pressure is at goal. He is maintaining good hydration and should avoid nonsteroidal anti-inflammatories. He is on aspirin. I did not make any medication changes today. Blood work ordered. Attention retrieving data, patient encounter and documentation 28 minutes. Follow-up given. Orders: Orders Blood Urea Nitrogen 07/24/23 I10 - Essential (primary) hypertension, N18.4 - Chronic kidney disease, stage 4 (severe) Creatinine 07/24/23 I10 - Essential (primary) hypertension, N18.4 - Chronic kidney disease, stage 4 (severe) Calcium 07/24/23 I10 - Essential (primary) hypertension, N18.4 - Chronic kidney disease, stage 4 (severe) Phosphorus 07/24/23 I10 - Essential (primary) hypertension, N18.4 - Chronic kidney disease, stage 4 (severe) Electrolytes 07/24/23 I10 - Essential (primary) hypertension, N18.4 - Chronic kidney disease, stage 4 (severe) Complete Blood Count Auto Diff 07/24/23 I10 - Essential (primary) hypertension, N18.4 - Chronic kidney disease, stage 4 (severe) Parathyroid Hormone Intact 07/24/23 I10 - Essential (primary) hypertension, N18.4 - Chronic kidney disease, stage 4 (severe) Vitamin D 25-OH Total 07/24/23 I10 - Essential (primary) hypertension, N18.4 - Chronic kidney disease, stage 4 (severe) Coding Level of Care Code Est Pt Level 4 (38151) Diagnoses CKD (chronic kidney disease) stage 4, GFR 15-29 ml/min N18.4 Essential hypertension I10 Hypertension type: essential hypertension History of CVA (cerebrovascular accident) Z86.73 Results Reviewed Nephrology Results: Hgb 12.9 g/dl (14.0-18.0) L 08/18/22 WBC 5.3 X10*3/uL (4.8-10.8) 08/18/22 Plt Count 184 X10*3/uL (160-400) 08/18/22 Sodium 141 mmol/L (135-145) 08/18/22 Potassium 4.7 mmol/L (3.3-5.1) 08/18/22 Chloride 106 mmol/L (96-108) 08/18/22 Carbon Dioxide 25 mmol/L (22-29) 08/18/22 BUN 36 mg/dL (9-16) H 08/18/22 Creatinine 1.86 mg/dL (0.5-1.4) H 08/18/22 Calcium 10.0 mg/dL (8.4-10.2) 08/18/22 Urine Protein Negative mg/dL (Neg-Trace) 08/16/22 Urine Creatinine 60.48 mg/dL 08/22/22
== END 2023-07-24 15:45 | disposition home or self-care (01) ==
PROVIDERS: PCP Internal Medicine; Visit Provider Internal Medicine Nephrology
DX: I12.9 Hypertensive chronic kidney disease with stage 1 through stage 4 chronic kidney disease, or unspecified chronic kidney disease (principal); N18.4 Chronic kidney disease, stage 4 (severe); Z86.73 Personal history of transient ischemic attack (TIA), and cerebral infarction without residual deficits
CPT/HCPCS: 99214

== ENCOUNTER → 2023-07-24 14:59 | Outpatient (BNVA) | payer OTHER, SELFPAY | PROVIDERS: PCP Internal Medicine; Visit Provider Internal Medicine Nephrology | DX: I12.9 Hypertensive chronic kidney disease with stage 1 through stage 4 chronic kidney disease, or unspecified chronic kidney disease (principal); N18.4 Chronic kidney disease, stage 4 (severe); Z86.73 Personal history of transient ischemic attack (TIA), and cerebral infarction without residual deficits | CPT/HCPCS: 99212 ==

== ENCOUNTER 2023-08-23 11:24 | Emergency (ER) | payer OTHER, SELFPAY ==
--- NOTE | ~2023-08-23 | XR_ITS ---
EXAMINATION: XR CHEST CLINICAL INFORMATION: Weakness COMPARISON: Chest CT on 04/19/2022 TECHNIQUE: 2 views of the chest were obtained. FINDINGS: The cardiac silhouette is normal. There is mild diffuse bronchial wall thickening. There are no areas of consolidation. There are no pleural effusions or pneumothoraces. The bones and soft tissues are unremarkable for the patient's age. XR/XR chest 2V IMPRESSION: Bronchial wall thickening may be infectious and/or inflammatory in etiology.
[2023-08-23 11:40] VITALS: BP 105/48; BP 132/74; PULSE 60; PULSE 70; RESP 16; TEMP 36.6; O2SAT 98; BMI 27.5
--- NOTE | 2023-08-23 12:33 | ECG_ITS ---
Test Reason : DIZZINESS Blood Pressure : / mmHG Vent. Rate : 051 BPM Atrial Rate : 051 BPM P-R Int : 306 ms QRS Dur : 094 ms QT Int : 422 ms P-R-T Axes : 013 -05 072 degrees QTc Int : 388 ms Sinus bradycardia with 1st degree A-V block Otherwise normal ECG When compared with ECG of 04-MAR-2021 19:11, No significant change was found Referred By: Generic ED Physician Electronically Signed By:TAMMI GANT MD
[2023-08-23 13:07] LABS: MANUAL DIFF FLAG NO
[2023-08-23 13:09] LABS: Basophils Percent Auto 0.3 % (0-2); Eosinophils Absolute Auto 0.2 X10*3/uL (0.0-0.4); Eosinophils Percent Auto 2.2 % (0-4); Hematocrit 34.4 % (42.0-52.0); Hemoglobin 11.4 g/dl (14.0-18.0); Imm Gran Abs Auto 0.01 X10*3/uL (0.00-0.03); Imm Gran Pct Auto 0.1 % (0.0-0.4); Lymphocytes Absolute Auto 1.1 X10*3/uL (1.2-4.9); Lymphocytes Percent Auto 13.1 % (20-40); Mean Corpuscular HGB Conc 33.1 g/dl (31.0-36.0); Mean Corpuscular Hemoglobin 30.2 pg (27.0-33.0); Mean Corpuscular Volume 91.2 fL (80.0-98.0); Mean Platelet Volume 10.8 fL (9.4-12.4); Monocytes Absolute Auto 0.6 X10*3/uL (0.1-1.2); Monocytes Percent Auto 6.7 % (2-11); Neutrophils Absolute Auto 6.8 x10*3/uL (2.0-8.3); Neutrophils Percent Auto 77.6 % (45-73); Platelet Count 135 X10*3/uL (160-400); Red Blood Count 3.77 X10*6/uL (4.60-5.80); Red Cell Distribution Width 13.4 % (11.0-16.0); White Blood Count 8.7 X10*3/uL (4.8-10.8)
[2023-08-23 13:14] LABS: Appearance Urine Clear; Color Urine Yellow; Glucose Urine UA Negative (Negative); Leukocyte Esterase Urine Negative (Negative); Nitrite Urine Negative (Negative); PH 6.5 (5.0-9.0); Urine Blood Negative (Negative); Urine Ketones Negative (Negative); Urine Protein Negative (Neg-Trace)
--- NOTE | 2023-08-23 13:26 | ED_ITS ---
HPI - Nausea/Vomiting/Diarrhea General Chief complaint: Nausea/Vomiting/Diarrhea Stated complaint: VOMITING SINCE AM FEVER Time Seen by Provider: 08/23/23 13:21 Source: patient and EMS Mode of arrival: EMS Limitations: no limitations History of Present Illness HPI Narrative: 73 year old male with pmhx significant for CVA with residual left sided weakness, HTN, thrombocytopenia, CAD, TN, CKD, T2DM, and right inguinal hernia presents to the ED today via EMS from assisted living facility for evaluation of nausea, vomiting, and dizziness since this morning. Reports eating his breakfast (toast, tuna, banana) and approximately 30 minutes later began to vomit. Reports 3 episodes of vomiting. Additionally endorses light headedness and intermittent blurred vision that lasted approximately 10 minutes. Denies fever, chills, cough, chest pain, palpitations, wheezing, sob, diarrhea. No sick contacts. Daughter is at bedside to assist with history. Related Data Home Medications Medication Instructions Recorded Confirmed aspirin 81 mg tablet,delayed 81 mg PO DAILY 11/15/20 02/13/23 release (Adult Low Dose Aspirin) Previous Rx's Medication Instructions Recorded walker #1 ea 11/15/20 lidocaine 4 % topical patch 1 patch topical DAILY PRN pain #15 05/22/22 (Aspercreme (lidocaine)) ea AFO prosthetic #1 ea 06/05/22 blood pressure monitor (Blood #1 ea 11/19/22 Pressure Kit) miconazole nitrate 2 % topical 1 appl topical BID #85 grams 11/19/22 powder (Zeasorb AF) cyanocobalamin (vitamin B-12) 1,000 mcg PO DAILY #90 caps 01/15/23 1,000 mcg capsule blood sugar diagnostic (FreeStyle #100 ea 02/13/23 Lite Strips) folic acid 1 mg tablet 1 mg PO DAILY #90 tabs 02/13/23 adult incontinence wipes #4 multiple units 05/01/23 adult pull ups #120 ea 05/01/23 disposable gloves #1,000 ea 05/01/23 washable bedpads #2 ea 05/01/23 furosemide 20 mg tablet 20 mg PO DAILY 90 days #90 tabs 05/11/23 amlodipine 10 mg tablet 10 mg PO DAILY 90 days #90 tabs 07/08/23 lisinopril 2.5 mg tablet 2.5 mg PO DAILY 90 days #90 tabs 07/08/23 rosuvastatin 10 mg tablet (Crestor) 10 mg PO DAILY 90 days #90 tabs 07/08/23 clotrimazole 1 % topical cream 1 appl topical BID 4 weeks #45 08/16/23 grams Allergies Allergy/AdvReac Type Severity Reaction Status Date / Time No Known Allergies Allergy Verified 07/24/23 15:15 Review of Systems 2 Review of Systems: Constitutional: No fever, chills, fatigue, night sweats, weight changes ENT/Mouth: No ear pain, hearing loss, nasal congestion, sinus pain, rhinorrhea, sore throat Eyes: No eye pain, swelling, redness, vision changes, discharge Cardio: No chest pain, palpitations, LUZ, orthopnea, peripheral edema Pulm: No SOB, cough, sputum, wheezing, dyspnea, hemoptysis GI: +nausea, +vomiting, No hematemesis, abdominal pain, diarrhea, constipation, hematochezia, melena : No irregular bleeding, dysuria, frequency, urgency, hesitancy, hematuria, flank pain, urinary flow changes, urinary incontinence or retention MSK: No back pain, neck pain, joint pain, myalgias Skin: No lesions, rashes Neuro: No weakness, numbness, paresthesias, LOC, +dizziness, No headache All other systems reviewed and are negative. [facility] Past Medical History Attestation statement: The following information was validated with the patient. Source: old records reviewed and nursing notes reviewed Onset Date is defined in the Problem List Problems that require an onset date and time if occurred within 24 hrs of arrival to the ED Aortic Dissection and Rupture; Neurologic impairment; Cardiopulmonary Arrest; Endotracheal Intubation; Insertion or Replacement of Mechanical Circulatory Assist Device Medical History (Updated 08/23/23 @ 22:43 by JAVED Paz) Rash of groin Atherosclerotic cardiovascular disease Colon cancer screening Coronary artery disease Umbilical hernia Right inguinal hernia History of TN (myocardial infarction) CKD (chronic kidney disease) stage 4, GFR 15-29 ml/min Thrombocytopenia Vitamin D deficiency History of CVA (cerebrovascular accident) Hypertension Hypercholesterolemia Type 2 diabetes mellitus with hyperglycemia Surgical History No pertinent past surgical history Family History Family History Father Heart disease Mother No problems noted. Social History Social History Housing: House Alcohol intake: former Patient Tobacco Use Status: Never used Tobacco Smoked in Last 30 Days: No e-Cigarette/Vaping Use: Never Used Second Hand Smoke Exposure: No Use of substances other than those prescribed or required for medical reasons: No Advance Directives: Yes Advance Directives on File: Yes Advance Directives Date on File: 04/20/22 service: No Current occupational status: retired Cognitive needs: Yes (wheel chair ) Hearing needs: No Vision needs: No Physical Exam 2 Vital Signs: Vital Signs: Last Vital Signs Temp 97.8 F 08/23/23 22:55 Pulse 64 08/23/23 22:55 Resp 18 08/23/23 22:55 BP 110/53 L 08/23/23 22:55 Pulse Ox 97 08/23/23 22:55 O2 Del Method Room Air 08/23/23 22:55 BMI result Body Mass Index 27.5 vital signs stable Const: General: cooperative, no acute distress, alert and awake O rientation/consciousness: patient oriented x3 Limitations: no limitations Eyes: General: appearance normal, both eyes and all related structures C onjunctivae: conjunctivae normal Sclerae: sclerae normal Pupils: Equal, round and reactive pupils present EOM: EOMs intact bilaterally Neck: Neck: Yes normal visual inspection, Yes no lymphadenopathy, Yes no meningeal signs and Yes no JVD Thyroid: Thyroid normal Resp: Effort & Inspection: normal respiratory effort and able to speak in complete sentences Auscultation: clear to auscultation bilaterally Cardio: Other: 2+ dp/pt pulses Rate: regular rate Rhythm: regular rhythm GI: Inspection: Yes normal to inspection Palpation (GI): Soft to palpation, nontender and no guarding Auscultation: normal bowel sounds : General: Yes no CVA tenderness Back/Spine/Pelvis: Back: no CVA tenderness Skin: General skin exam: no rashes or lesions noted Neuro: General: patient oriented x3, gait normal, moves all extremities, no meningeal signs and Unable to assess gait Cranial nerves: Yes Equal, round and reactive pupils present Gait exam (Neuro): Unable to assess gait Motor exam (neuro): Abnormal motor strength present (4/5 to b/l LE) Deep tendon reflexes (DTR's): Right patellar reflex intensity grade: 2+ and Left patellar reflex intensity grade: 2+ Coordination: [id number] test normal and Normal rapid alternating movements of the distal upper extremity present (Neuro) Pupils: Normal pupillary reactivity/response: bilateral Extrem: General: Yes normal to inspection and Yes full ROM Course Course Course Narrative: Patient noted to be chronically anemic likely secondary to CKD. Chemistry with elevated BUN and creatinine consistent with CKD. No other acute electrolyte abnormalities requiring intervention. Urine without infection. Patient tested negative for COVID, influenza. >> installation tech attempted to obtain orthostatic vital signs however patient was unable to stand even with walker due to weakness. will place consult to PT/CM >> physician observation initiated pending PT case management. Reevaluation(s) Reevaluation #1: Received sign-out with the patient in stable condition pending physical therapy and case management. Chest x-ray pending an additional labs. Time: 17:00 Reevaluation #2: 1:25 a.m., August 24, 2023 patient signed out in stable condition pending PT and case management evaluation. He is resting comfortably at this time. 8:15 p.m., August 23, 2023 I have had extensive discussion with the patient and his daughter at the bedside with guide cruise Beck. I have reviewed all labs and imaging. No acute process. Chest x-ray suggestive of bronchial wall thickening however the patient is not exhibiting any URI symptoms or coughing, clear lung sounds. The patient is resting comfortably at this time and states that he is feeling much better. He continues to be unable to even stand with the walker due to weakness. He denies any pain, just reporting that he is weak. For the patient's safety, I do not feel that it is safe for him to be discharged home. He lives in an apartment alone and does not have services. Patient will remain and be further evaluated by case management and physical therapy. Medications Administered Discontinued Medications Generic Name Dose Route Start Last Admin Trade Name Freq PRN Reason Stop Dose Admin Sodium Chloride 1,000 mls @ 999 mls/hr 08/23/23 14:45 08/23/23 16:24 Ns IV 08/23/23 15:45 999 mls/hr .Q1H1M GUNNAR Infusion Medical Decision Making Medical Decision Making [facility] Narrative: 73 year old male with pmhx significant for CVA with residual left sided weakness, HTN, thrombocytopenia, CAD, TN, CKD, T2DM, and right inguinal hernia presents to the ED today via EMS from assisted living facility for evaluation of nausea, vomiting, and dizziness since this morning. Vital signs stable. Initially noted to be hypotensive to 105/48. He is now 138/70 after receiving IV fluids. Exam is nonfocal. He is nontoxic-appearing and in NAD. Abdomen is soft, ND/NT. Normoactive BS x4. 4/5 strength noted to b/l LE however unable to assess gait d/t weakness. 2+ patellar dtrs b/l. nv intact. Clinical concern for dehydration, electrolyte abnormality, anemia, pneumonia, UTI, gastroenteritis, gastritis, deconditioning. Lower suspicion for acs, arrhythmia. Unlikely PE, CVA/TIA, cerebellar stroke, dissection. Unlikely guillain barre, cauda equina, cord compression. Plan for labs, ekg, cxr, ua, orthostatic vitals, and disposition. Differential Diagnosis Differential Diagnoses: The differential diagnosis associated with the presentation includes as above. Admission/Observation Consideration of admission/observation: Escalation of care including admission/observation considered Consult Healthcare Provider Management of the patient was discussed with: Manager Services (PT/CM) Lab Data [facility] Lab Attestation statement: I reviewed the patient's lab results. as above. 08/23/23 12:51 08/23/23 14:10 Labs: Lab Results 08/23/23 08/23/23 08/23/23 Range/Units 12:51 12:54 13:07 WBC 8.7 (4.8-10.8) X10*3/uL RBC 3.77 L (4.60-5.80) X10*6/uL Hgb 11.4 L (14.0-18.0) g/dl Hct 34.4 L (42.0-52.0) % MCV 91.2 (80.0-98.0) fL MCH 30.2 (27.0-33.0) pg MCHC 33.1 (31.0-36.0) g/dl RDW 13.4 (11.0-16.0) % Plt Count 135 L D (160-400) X10*3/uL MPV 10.8 (9.4-12.4) fL Immature Gran % (Auto) 0.1 (0.0-0.4) % Neut % (Auto) 77.6 H (45-73) % Lymph % (Auto) 13.1 L (20-40) % [place] % (Auto) 6.7 (2-11) % Eos % (Auto) 2.2 (0-4) % Baso % (Auto) 0.3 (0-2) % Lymph # (Auto) 1.1 L (1.2-4.9) X10*3/uL [place] # (Auto) 0.6 (0.1-1.2) X10*3/uL Eos # (Auto) 0.2 (0.0-0.4) X10*3/uL Baso # (Auto) 0.0 (0.0-0.2) X10*3/uL Abs Immat Gran (auto) 0.01 (0.00-0.03) X10*3/uL Absolute Neuts (auto) 6.8 (2.0-8.3) x10*3/uL Absolute Nucleated RBC 0.000 (0.0-0.012) X10*3/uL Nucleated RBC % (auto) 0.0 (0.0-0.2) /100WBC Sodium (135-145) mmol/L Potassium (3.3-5.1) mmol/L Chloride (96-108) mmol/L Carbon Dioxide (22-29) mmol/L Anion Gap (12-20) BUN (9-16) mg/dL Creatinine (0.5-1.4) mg/dL Estim Creat Clear Calc Estimated GFR Random Glucose (60-115) mg/dL Calcium (8.4-10.2) mg/dL Troponin I High Sens (<3.5-35.0) ng/L Urine Color Yellow Urine Appearance Clear Urine pH 6.5 (5.0-9.0) Ur Specific Line [place] 1.010 (1.005-1.025) Urine Protein Negative (Neg-Trace) mg/dL Urine Glucose (UA) Negative (Negative) mg/dL Urine Ketones Negative (Negative) mg/dL Urine Blood Negative (Negative) Urine Nitrite Negative (Negative) Ur Leukocyte Esterase Negative (Negative) COVID-19 (JENNIFER) Negative (Negative) COVID-19 Clin Com See Note Influenza Type A (CHERELLE) Negative (Negative) Influenza Type B (CHERELLE) Negative (Negative) Influenza A & B Note See Note 08/23/23 Range/Units 14:10 WBC (4.8-10.8) X10*3/uL RBC (4.60-5.80) X10*6/uL Hgb (14.0-18.0) g/dl Hct (42.0-52.0) % MCV (80.0-98.0) fL MCH (27.0-33.0) pg MCHC (31.0-36.0) g/dl RDW (11.0-16.0) % Plt Count (160-400) X10*3/uL MPV (9.4-12.4) fL Immature Gran % (Auto) (0.0-0.4) % Neut % (Auto) (45-73) % Lymph % (Auto) (20-40) % [place] % (Auto) (2-11) % Eos % (Auto) (0-4) % Baso % (Auto) (0-2) % Lymph # (Auto) (1.2-4.9) X10*3/uL [place] # (Auto) (0.1-1.2) X10*3/uL Eos # (Auto) (0.0-0.4) X10*3/uL Baso # (Auto) (0.0-0.2) X10*3/uL Abs Immat Gran (auto) (0.00-0.03) X10*3/uL Absolute Neuts (auto) (2.0-8.3) x10*3/uL Absolute Nucleated RBC (0.0-0.012) X10*3/uL Nucleated RBC % (auto) (0.0-0.2) /100WBC Sodium 138 (135-145) mmol/L Potassium 5.1 (3.3-5.1) mmol/L Chloride 107 (96-108) mmol/L Carbon Dioxide 24 (22-29) mmol/L Anion Gap 12 (12-20) BUN 38 H (9-16) mg/dL Creatinine 2.00 H (0.5-1.4) mg/dL Estim Creat Clear Calc 30.6 Estimated GFR 33 Random Glucose 127 H (60-115) mg/dL Calcium 9.5 (8.4-10.2) mg/dL Troponin I High Sens 8.2 (<3.5-35.0) ng/L Urine Color Urine Appearance Urine pH (5.0-9.0) Ur Specific Line [place] (1.005-1.025) Urine Protein (Neg-Trace) mg/dL Urine Glucose (UA) (Negative) mg/dL Urine Ketones (Negative) mg/dL Urine Blood (Negative) Urine Nitrite (Negative) Ur Leukocyte Esterase (Negative) COVID-19 (JENNIFER) (Negative) COVID-19 Clin Com Influenza Type A (CHERELLE) (Negative) Influenza Type B (CHERELLE) (Negative) Influenza A & B Note Independent Interpretation I performed an independent interpretation of an: EKG and Plain X-Ray Interpretation: EKG showing sinus bradycardia at a rate of 58bpm with 1st degree av block and PACs, no acute ischemic changes or st elevations. I personally reviewed CXR and agree with radiologist's interpretation. Radiology Impression Discussion of test interpretation with radiology: I have reviewed the radiologist's reading. Radiologist Impression: [place] [id number] XRay Report Signed Patient: Rio Rushing MR#: [id number] : 1950 Acct:[id number] Age/Sex: 73 / M ADM Date: 08/23/23 Loc: .ED Attending Dr: Ordering Physician: Marce Aden Date of Service: 08/23/23 Procedure(s): XR chest 2V Accession Number(s): [id number] cc: Umm Mckeon MD; Marce Aden~ EXAMINATION: XR CHEST CLINICAL INFORMATION: Weakness COMPARISON: Chest CT on 04/19/2022 TECHNIQUE: 2 views of the chest were obtained. FINDINGS: The cardiac silhouette is normal. There is mild diffuse bronchial wall thickening. There are no areas of consolidation. There are no pleural effusions or pneumothoraces. The bones and soft tissues are unremarkable for the patient's age. XR/XR chest 2V IMPRESSION: Bronchial wall thickening may be infectious and/or inflammatory in etiology. Dictated By: Anh Veroniac MD Signed By: <Electronically signed by Anh Veronica MD in OV> 08/23/23 [id number] Independent Historian Clinical information obtained from an independent historian. History obtained from or confirmed by: Other (daughter) External Record Review External record reviewed: Inpatient record, Office record, Outpatient record, Prior outpatient labs, Prior outpatient radiology, Primary care record and Outside ED record Social Determinants Patient?s care significantly limited by Social Determinants of Health including: Other Social Determinant of Health Critical Care Time Critical Care Time Critical Care Time: No Discharge Plan Discharge Clinical Impression: Generalized weakness Patient Disposition: Still a Patient Prescriptions: No Action (DME) AFO prosthetic See Rx Instructions .Route .MEDSUPPLY Qty: 1 0RF Rx Instructions: As directed cyanocobalamin (vitamin B-12) 1,000 mcg capsule 1,000 mcg PO DAILY Qty: 90 3RF folic acid 1 mg tablet 1 mg PO DAILY Qty: 90 3RF (DME) adult pull ups XL See Rx Instructions .Route .MEDSUPPLY Qty: 120 12RF Rx Instructions: As directed (DME) washable bedpads XL See Rx Instructions .Route .MEDSUPPLY Qty: 2 12RF Rx Instructions: As directed (DME) disposable gloves Misc See Rx Instructions .Route Qty: 1000 12RF Rx Instructions: As directed (DME) adult incontinence wipes See Rx Instructions .Route .MEDSUPPLY Qty: 4 12RF Rx Instructions: As directed furosemide 20 mg tablet 20 mg PO DAILY 90 Days Qty: 90 2RF rosuvastatin [Crestor] 10 mg tablet 10 mg PO DAILY 90 Days Qty: 90 2RF amlodipine 10 mg tablet 10 mg PO DAILY 90 Days Qty: 90 2RF lisinopril 2.5 mg tablet 2.5 mg PO DAILY 90 Days Qty: 90 2RF clotrimazole 1 % cream 1 appl topical BID 28 Days Qty: 45 1RF aspirin [Adult Low Dose Aspirin] 81 mg tablet,delayed release (DR/EC) 81 mg PO DAILY (DME) walker Misc See Rx Instructions .ROUTE .MEDSUPPLY Qty: 1 0RF Rx Instructions: As directed lidocaine [Aspercreme (lidocaine)] 4 % adhesive patch,medicated 1 patch topical DAILY PRN (Reason: pain) Qty: 15 0RF (DME) FreeStyle Lite Strips Strip See Rx Instructions .ROUTE .MEDSUPPLY Qty: 100 3RF Rx Instructions: As directed check the BS QD miconazole nitrate [Zeasorb AF] 2 % powder 1 appl topical BID Qty: 85 9RF (DME) blood pressure monitor [Blood Pressure Kit] Kit See Rx Instructions .ROUTE .MEDSUPPLY Qty: 1 0RF Rx Instructions: As directed
[2023-08-23 13:48] LABS: IDNOW Serial# 16C4AD1C
[2023-08-23 13:49] LABS: COVID-19 Test Negative (Negative); IDNOW Serial# 152EDE1D; Influenza A Negative (Negative); Influenza B2 Negative (Negative)
--- NOTE | 2023-08-23 14:26 | PC.NURSE ---
repeat labs drawn, ekg performed
[2023-08-23 14:28] LABS: Anion Gap 12 (12-20); Blood Urea Nitrogen 38 mg/dL (9-16); Calcium 9.5 mg/dL (8.4-10.2); Carbon Dioxide 24 mmol/L (22-29); Chloride 107 mmol/L (96-108); Creatinine Clr Calc Pharmacy 30.6; Estimated Glomerular Filt Rate 33; Glucose Random 127 mg/dL (60-115); Potassium 5.1 mmol/L (3.3-5.1); Sodium 138 mmol/L (135-145)
[2023-08-23 14:39] VITALS: BP 124/57; PULSE 56
[2023-08-23 14:44] VITALS: BP 138/70; PULSE 61
[2023-08-23] MEDS: 0.9 % Sodium Chloride 1,000 ML 999 ML IV (15:28)
--- NOTE | 2023-08-23 16:44 | ECG_ITS ---
Test Reason : N/V Blood Pressure : / mmHG Vent. Rate : 058 BPM Atrial Rate : 058 BPM P-R Int : 292 ms QRS Dur : 096 ms QT Int : 426 ms P-R-T Axes : 079 -02 079 degrees QTc Int : 418 ms Sinus bradycardia with 1st degree A-V block with Premature atrial complexes Otherwise normal ECG When compared with ECG of 23-AUG-2023 14:11, Premature atrial complexes are now Present Referred By: Marce Aden Electronically Signed By:TAMMI GANT MD
[2023-08-23 17:08] LABS: Troponin-I High Sensitivity 8.2 ng/L (<3.5-35.0)
[2023-08-23 19:16] VITALS: BP 112/56; PULSE 58; RESP 13; TEMP 36.6; O2SAT 98
--- NOTE | 2023-08-23 22:45 | PC.NURSE ---
Patient transferred from main ED to overflow bed 6. Patient is alert and oriented x3, [place]ic Speaking male, who is able to make his needs known and has been using a call montes appropriately at ED. Patient denies any pain/nausea/vomiting at present. Patient reports feeling weak, not able to bear weight or ambulate. Patient also reports history of previous CVA with residual left sided weakness. Patient urinates in a urinal, needs assistance with a urinal placement d/t inguinal hernia. Vital signs obtained by SWEDISH MASSEUSE, patient oriented to room, call montes placed within patient's reach. Plan of care ongoing.
[2023-08-23 22:55] VITALS: BP 110/53; PULSE 64; RESP 18; TEMP 36.6; O2SAT 97
--- NOTE | 2023-08-24 04:24 | PC.NURSE ---
Assumed care, patient resting comfortably. A&O x3, denies pain. Safety precautions in place. Call montes within reach.
[2023-08-24 05:31] VITALS: BP 141/66; PULSE 56; RESP 20; TEMP 37.2; O2SAT 99
--- NOTE | 2023-08-24 07:42 | MHC.EDTECH ---
PT rang call simon for assistance with urinal, PT urinated 300cc POC DONE = 88 RN aware
[2023-08-24 07:44] LABS: Glucose, Whole Blood 88 mg/dL (60-115)
--- NOTE | 2023-08-24 09:21 | MHC.EDTECH ---
Assisted PT with urinal, Emptied 100cc of urine.
[2023-08-24 09:27] VITALS: BP 141/66; PULSE 56; O2SAT 99
--- NOTE | 2023-08-24 11:23 | PC.NURSE ---
called pharmacy- osmany sutton coming down to do med rec.
--- NOTE | 2023-08-24 12:22 | PHA.MEDREC ---
Pharmacy Consult ? Medication Reconciliation Pharmacy has completed the medication reconciliation. Patient poor historian of medications. Utilized hand driller services. Spoke to patient's daughter Malorie ([phone]) to confirm meds with hand driller.
--- NOTE | 2023-08-24 12:50 | PC.NURSE ---
repositioned in bed. pharmacy came to room and completed med rec. no distress. given ice water- drank well. voided x1 in urinal
--- NOTE | 2023-08-24 13:39 | MHC.EDTECH ---
Patient rang call simon. Assisted patient with the nurse to the commode. PT is a 2a oob w/ the walker. PT had a bowel movement and is laying back down in bed.
[2023-08-24 13:51] VITALS: BP 136/69; PULSE 100; RESP 18; TEMP 36.6; O2SAT 98
--- NOTE | 2023-08-24 14:29 | PC.NURSE ---
pt seeing patient in room.
[2023-08-24 15:37] VITALS: BP 142/65; PULSE 61; RESP 16; TEMP 36.4; O2SAT 95
--- NOTE | 2023-08-24 15:40 | MHC.EDTECH ---
This pct just assumed care of pt ,vitals taken ,blood sugar check ,pt family here visiting ,brought Pt food .
--- NOTE | 2023-08-24 16:20 | MHC.EDTECH ---
PATIENT WAS ASSISTED TO USE URINAL ,CARE GIVEN ,PT ATE 100 % OF MEAL AND DRANK 240 ML FLUIDS .
[2023-08-24 16:38] LABS: Glucose, Whole Blood 92 mg/dL (60-115)
--- NOTE | 2023-08-24 17:24 | MHC.EDTECH ---
Pt assisted with urinal, pt then repositioned in bed.
--- NOTE | 2023-08-24 17:36 | MHC.EDTECH ---
PATIENT ATE AN ADDITIONAL MEAL ,AND DRANK 240 ML BLAS NIKOLAY ,WAS ASSISTED TO USE THE URINAL .
--- NOTE | 2023-08-24 18:22 | PC.NURSE ---
assumed care of pt at 1500. Pt is alert and oriented, Swedish speaking. Pt has visitor at bedside at this time. LS clear on room air. Pt is voiding in urinal. Vital signs stable. All needs met at this time. All safety measures in place.
--- NOTE | 2023-08-24 19:26 | MHC.EDTECH ---
Pt was assisted with the urinal and then repositioned.
[2023-08-24 19:43] VITALS: BP 142/64; PULSE 60; RESP 16; TEMP 36.9; O2SAT 96
[2023-08-24] MEDS: Clotrimazole 1 % Cream 15 GM TUBE 1 APPL TOPICAL (20:50)
[2023-08-24] MEDS: Atorvastatin Calcium 40 MG TABLET PO (20:50)
[2023-08-24 20:53] LABS: Glucose, Whole Blood 123 mg/dL (60-115)
--- NOTE | 2023-08-25 02:48 | PC.NURSE ---
Patient sleeping at present. VSS, able to make needs known. Call montes within reach, safety measures in place.
[2023-08-25 04:10] VITALS: BP 138/63; PULSE 56; RESP 16; TEMP 36.3; O2SAT 95
--- NOTE | 2023-08-25 04:11 | MHC.EDTECH ---
Patient was incontinent of urine ,care given and bedding change .
[2023-08-25 07:17] LABS: Glucose, Whole Blood 97 mg/dL (60-115)
[2023-08-25] MEDS: amLODIPine Besylate 10 MG TABLET PO (08:41)
[2023-08-25] MEDS: Furosemide 20 MG TABLET PO (08:41)
[2023-08-25] MEDS: Aspirin Enteric Coated 81 MG TABLET.DR PO (08:41)
[2023-08-25] MEDS: Folic Acid 1 MG TABLET PO (08:41)
[2023-08-25] MEDS: Cyanocobalamin (Vitamin B-12) 1,000 MCG TABLET 1000 MCG PO (08:41)
[2023-08-25] MEDS: lisinopriL 2.5 MG TABLET PO (08:41)
--- NOTE | 2023-08-25 09:35 | PC.NURSE ---
Assumed care at 0700. Assisted pt with breakfast d/t L sided residual weakness s/t hx of CVA. Pull Over Machine Operator at bedside for medication administration. Pt offered no complaints or questions at this time. Med and meal compliant. Plan of care ongoing.
[2023-08-25 11:12] LABS: Glucose, Whole Blood 113 mg/dL (60-115)
[2023-08-25 14:00] VITALS: BP 110/49; PULSE 54; RESP 16; TEMP 36.6; O2SAT 98
[2023-08-25 16:16] LABS: Glucose, Whole Blood 80 mg/dL (60-115)
[2023-08-25 19:59] VITALS: BP 113/62; PULSE 55; RESP 16; TEMP 36.9; O2SAT 98
--- NOTE | 2023-08-25 20:00 | MHC.EDTECH ---
This pct took over care at 1900. The pt was helped use the urinal twice with a total output volume of 175 ml. The pt is clean and dry.
[2023-08-25 20:45] LABS: Glucose, Whole Blood 138 mg/dL (60-115)
[2023-08-25] MEDS: Clotrimazole 1 % Cream 15 GM TUBE 1 APPL TOPICAL (21:30)
[2023-08-25] MEDS: Atorvastatin Calcium 40 MG TABLET PO (21:30)
--- NOTE | 2023-08-25 22:18 | PC.NURSE ---
Assumed care of patient 19:15. Pt is seen this evening in ED overflow bed 6 (PT/CM pt, pending dispo). Pt is Citizen Of [place] speaking only; in-person vice president sales used for assessment and medication administration. Pt is A&Ox3 to self, place, and situation. Unable to state year, reoriented. Pt denies dizziness, headache, and vision changes. +pp/cms per baseline; pt has hx of CVA with residual left weakness. Pt denies chest pain and sob. Breathing is even and unlabored without distress. VSS. Tolerating meds and diabetic snack without n/v. POC was 138. Voiding cyu in urinal. Denies pain and offers no acute complaints. Left AC #20 intact and patent on flushing. Bed alarm on and high-falls safety measures in place. Will continue to monitor for remainder of bond writer's scheduled care.
--- NOTE | 2023-08-25 23:26 | PC.NURSE ---
Handoff report given to oncoming ED RN at 23:15.
--- NOTE | 2023-08-26 01:38 | PC.NURSE ---
Assumed care of pt at 2315. Pt A&o X4, resting in bed. Assisted with the urinal. No distress at this time, denies any pain. Plan of care ongoing.
[2023-08-26 07:51] VITALS: BP 116/63; PULSE 50; RESP 16; O2SAT 99
[2023-08-26] MEDS: Folic Acid 1 MG TABLET PO (08:14)
[2023-08-26] MEDS: Cyanocobalamin (Vitamin B-12) 1,000 MCG TABLET 1000 MCG PO (08:14)
[2023-08-26] MEDS: lisinopriL 2.5 MG TABLET PO (08:14)
[2023-08-26] MEDS: Aspirin Enteric Coated 81 MG TABLET.DR PO (08:14)
[2023-08-26] MEDS: amLODIPine Besylate 10 MG TABLET PO (08:14)
[2023-08-26] MEDS: Furosemide 20 MG TABLET PO (08:14)
[2023-08-26] MEDS: Clotrimazole 1 % Cream 15 GM TUBE 1 APPL TOPICAL ×2 (08:20→21:10)
[2023-08-26 09:09] LABS: Glucose, Whole Blood 128 mg/dL (60-115)
--- NOTE | 2023-08-26 11:18 | MHC.CM.ED ---
Received case management consult over the weekend. Patient came to the ER due to vomiting. Work up essentially negative. Physical therapy eval completed. Short term rehab is recommended. Patient is active with [facility]. T/W is trying to obtain info from [facility] about what services patient currently receives. T/W spoke with patient's daughter/HCP, Ibis via telephone at [phone] and the help of the mental health technician. Patient has been to [facility] in the past. Ibis believes he enjoyed it there but is requesting T/W speak with patient's SKEIN YARN DYER, Malorie. She will be available after 230pm. Referral made to [facility] at this time. Continue to monitor for d/c needs.
[2023-08-26 11:21] LABS: Glucose, Whole Blood 90 mg/dL (60-115)
--- NOTE | 2023-08-26 14:58 | MHC.CM.ED ---
Met with patient, daughter Malorie and educational sign language interpreter in regards to discharge planning. [facility], [facility], [facility], [facility], [facility], and [facility] are able to offer a bed. Patient and Malorie accept bed at [facility]. [facility] is in the process of obtaining insurance auth. Continue to monitor for d/c needs.
[2023-08-26 15:06] VITALS: BP 113/57; PULSE 53; RESP 16; TEMP 36.6; O2SAT 99
[2023-08-26 16:37] LABS: Glucose, Whole Blood 120 mg/dL (60-115)
[2023-08-26 19:59] VITALS: BP 118/55; PULSE 58; RESP 20; TEMP 37.1; O2SAT 97
--- NOTE | 2023-08-26 20:21 | PC.NURSE ---
Pt resting comfortably in bed. Pt requested and assisted with urinal. Plan of care ongoing.
[2023-08-26] MEDS: Atorvastatin Calcium 40 MG TABLET PO (21:06)
--- NOTE | 2023-08-26 21:15 | PC.NURSE ---
Pt ca&ox3, no signs of distress. Pt medicated per mar. Pt requested and given warm blanket. Plan of care ongoing.
[2023-08-26 21:45] LABS: Glucose, Whole Blood 117 mg/dL (60-115)
--- NOTE | 2023-08-27 02:15 | MHC.EDTECH ---
PT IS RELAXING IN BED. URINAL EMPTIED 100CC
[2023-08-27 06:00] VITALS: BP 117/54; PULSE 55; RESP 16; TEMP 36.4; O2SAT 99
--- NOTE | 2023-08-27 06:47 | PC.NURSE ---
Assumed care of patient at 23:30. Continues in ED overflow. Patient A&Ox3. Pt resting in bed appearing comfortable for majority of shift. Breathing is even and unlabored without distress. Assisted with urinal voiding cyu, as well as repositioning. Denies pain. High falls preventative measures in place. AM VSS. Handoff report given to oncoming RN 06:45.
--- NOTE | 2023-08-27 07:30 | MHC.EDTECH ---
Took PTS POC = 95 RN AWARE Pt is resting while waiting for breakfast tray
[2023-08-27 07:32] LABS: Glucose, Whole Blood 95 mg/dL (60-115)
--- NOTE | 2023-08-27 08:40 | MHC.EDTECH ---
Emptied urinal 100cc. PT is washed up and sitting in the recliner chair. PT ate 100% of his breakfast. 120cc of juice. PT asked about rehab and if he is leaving today. RN aware, waiting for confirmation.
[2023-08-27] MEDS: Aspirin Enteric Coated 81 MG TABLET.DR PO (09:53)
[2023-08-27] MEDS: Furosemide 20 MG TABLET PO (09:53)
[2023-08-27] MEDS: lisinopriL 2.5 MG TABLET PO (09:54)
[2023-08-27] MEDS: Cyanocobalamin (Vitamin B-12) 1,000 MCG TABLET 1000 MCG PO (09:54)
[2023-08-27] MEDS: Folic Acid 1 MG TABLET PO (09:54)
[2023-08-27] MEDS: amLODIPine Besylate 10 MG TABLET PO (09:54)
--- NOTE | 2023-08-27 10:30 | PC.NURSE ---
pt sitting oob in chair w/o distress. calm, coop.
--- NOTE | 2023-08-27 10:49 | MHC.EDTECH ---
PT requested to go back into bed. 1A OOB with rolling walker. PT is now laying down in bed relaxing.
--- NOTE | 2023-08-27 11:30 | MHC.EDTECH ---
pt poc = 91 RN AWARE
--- NOTE | 2023-08-27 12:10 | PC.NURSE ---
eating lunch well. calm, no distress. watching tv. pt placed back in bed from chair per pt's request- repositioned in bed.
[2023-08-27 12:20] LABS: Glucose, Whole Blood 91 mg/dL (60-115)
--- NOTE | 2023-08-27 13:34 | MHC.CM.ED ---
Patient remains in ER overflow. Patient can leave for [facility] at 330pm. [facility]LLIDAYS booked. [facility] with chart. [facility] auth for BLS#[id number]. Patient, Deena LOZANO and Keyla BURT aware. Attempted to notify patient's daughter/DEPUTY SHERIFF COURT SERVICESMalorie via telephone at [phone] with the help of the aerial photograph interpreter. Voicemail left with patient's d/c info. Continue to monitor for d/c needs.
[2023-08-27 13:57] VITALS: BP 82/65; PULSE 91; RESP 18; TEMP 36.2; O2SAT 99
[2023-08-27 14:15] VITALS: BP 135/58; PULSE 68
--- NOTE | 2023-08-27 14:45 | PC.NURSE ---
piv removed. pt boosted, repositioned after voiding 100 cc in urinal. pt assisted oob to commode x2 staff assist w walker as pt thought he needed to have a bm but did not. no distress. calm, coop. watching tv
--- NOTE | 2023-08-27 15:37 | PC.NURSE ---
called report for pt heading to [facility]. spoke w guest relations receptionist who transferred me to the floor recieving pt but no answer.
--- NOTE | 2023-08-27 16:10 | PC.NURSE ---
third attempt to call [facility] to give report to staff. on hold
== END 2023-08-27 15:35 | disposition skilled nursing facility (03) ==
PROVIDERS: Physician Assistant Medical; Emergency Provider Emergency Medicine; PCP Internal Medicine
DX: R11.2 Nausea with vomiting, unspecified (principal); R42 Dizziness and giddiness; R53.1 Weakness; I25.10 Atherosclerotic heart disease of native coronary artery without angina pectoris; R26.81 Unsteadiness on feet; R00.1 Bradycardia, unspecified; I10 Essential (primary) hypertension; Z79.899 Other long term (current) drug therapy; Z11.52 Encounter for screening for COVID-19; Z20.828 Contact with and (suspected) exposure to other viral communicable diseases; Z91.81 History of falling
CPT/HCPCS: 71046; 80048; 81003; 82947; 84484; 85025; 87502; 87635; 93005; 96360; 97161; 97162; 99285

== ENCOUNTER → 2023-08-23 12:33 | Outpatient (BNV) | payer OTHER, SELFPAY | PROVIDERS: Emergency Provider Emergency Medicine; PCP Internal Medicine; Visit Provider Internal Medicine Cardiovascular Disease | DX: R11.2 Nausea with vomiting, unspecified (principal) | CPT/HCPCS: 93010 ==

== ENCOUNTER 2023-10-28 12:23 | Outpatient (REF) | payer OTHER, SELFPAY ==
[2023-10-28 12:38] LABS: MANUAL DIFF FLAG NO
[2023-10-28 13:41] LABS: Basophils Percent Auto 0.6 % (0-2); Eosinophils Absolute Auto 0.3 X10*3/uL (0.0-0.4); Eosinophils Percent Auto 4.6 % (0-4); Hematocrit 37.4 % (42.0-52.0); Hemoglobin 12.4 g/dl (14.0-18.0); Imm Gran Abs Auto 0.02 X10*3/uL (0.00-0.03); Imm Gran Pct Auto 0.3 % (0.0-0.4); Lymphocytes Absolute Auto 2.5 X10*3/uL (1.2-4.9); Lymphocytes Percent Auto 40.4 % (20-40); Mean Corpuscular HGB Conc 33.2 g/dl (31.0-36.0); Mean Corpuscular Hemoglobin 30.4 pg (27.0-33.0); Mean Corpuscular Volume 91.7 fL (80.0-98.0); Mean Platelet Volume 10.8 fL (9.4-12.4); Monocytes Absolute Auto 0.6 X10*3/uL (0.1-1.2); Monocytes Percent Auto 8.9 % (2-11); Neutrophils Absolute Auto 2.8 x10*3/uL (2.0-8.3); Neutrophils Percent Auto 45.2 % (45-73); Platelet Count 153 X10*3/uL (160-400); Red Blood Count 4.08 X10*6/uL (4.60-5.80); Red Cell Distribution Width 13.5 % (11.0-16.0); White Blood Count 6.3 X10*3/uL (4.8-10.8)
[2023-10-28 14:16] LABS: Parathyroid Hormone Intact 245.9 pg/mL (8.7-77.1)
[2023-10-28 14:36] LABS: Anion Gap 14 (12-20); Blood Urea Nitrogen 38 mg/dL (9-16); Calcium 9.5 mg/dL (8.4-10.2); Carbon Dioxide 24 mmol/L (22-29); Chloride 103 mmol/L (96-108); Estimated Glomerular Filt Rate 35; Phosphorus 3.1 mg/dL (2.7-4.5); Potassium 4.4 mmol/L (3.3-5.1); Sodium 137 mmol/L (135-145); Vitamin D 25-OH Total 16.4 ng/mL (>30)
== END 2023-10-28 12:24 | disposition home or self-care (01) ==
LOC: HO.LAB 12:23
PROVIDERS: PCP Internal Medicine; Visit Provider Internal Medicine Nephrology
DX: I12.9 Hypertensive chronic kidney disease with stage 1 through stage 4 chronic kidney disease, or unspecified chronic kidney disease (principal); N18.4 Chronic kidney disease, stage 4 (severe)
CPT/HCPCS: 36415; 80051; 82306; 82310; 82565; 83970; 84100; 84520; 85025

== ENCOUNTER 2023-10-30 14:53 | Outpatient (AMB) | payer OTHER, SELFPAY ==
--- NOTE | 2023-10-30 15:34 | HO.NEPHOV_ITS ---
HPI HPI Comments History of Present Illness Details I had the privilege of seeing Rio in follow-up of his chronic kidney disease and hypertension. His history of CVA. He does not have any new neurological symptoms or deficits. He is compliant with his medications. He does not have any orthostatic symptoms. He is ambulating with a walker at home. He denies chest pain, shortness of breath, nausea vomiting, diarrhea, urinary symptoms or pedal edema. He avoids nonsteroidal anti-inflammatory medication and maintain good hydration. He has not had any blood work done for long time. He did not have any specific new complaints at the time of this office visit. [facility] Medical History (Updated 08/27/23 @ 00:01 by Primo Will) Rash of groin Atherosclerotic cardiovascular disease Colon cancer screening Coronary artery disease Umbilical hernia Right inguinal hernia History of [place] (myocardial infarction) CKD (chronic kidney disease) stage 4, GFR 15-29 ml/min Thrombocytopenia Vitamin D deficiency History of CVA (cerebrovascular accident) Hypertension Hypercholesterolemia Type 2 diabetes mellitus with hyperglycemia Surgical History No pertinent past surgical history Family History Father Heart disease Mother No problems noted. Social History Housing: House Alcohol intake: former Patient Tobacco Use Status: Never used Tobacco e-Cigarette/Vaping Use: Never Used Second Hand Smoke Exposure: No Advance Directives Date on File: 04/20/22 service: No Current occupational status: retired Cognitive needs: Yes (wheel chair ) Hearing needs: No Vision needs: No Vital Signs 10/30/23 15:35 BP 110/60 Blood Pressure Location Rt brachial Position Sitting Pulse 67 Pulse Source Pulse Oximeter Pulse Oximetry (%) 98 Oxygen Delivery Method Room Air Physical Exam Vital Signs: Last Vital Signs Pulse 67 10/30/23 15:35 BP 110/60 10/30/23 15:35 Pulse Ox 98 10/30/23 15:35 Oxygen Delivery Method Room Air 10/30/23 15:35 Const General: comfortable and no acute distress Orientation/consciousness: patient oriented x3 HEENT Head: Yes normocephalic Mouth: Normal oral and palatal mucosa present Eyes EOM: EOMs intact bilaterally Neck Neck: Yes supple Resp Auscultation: clear to auscultation bilaterally Cardio Jugular venous distension: no JVD Rate: regular rate GI Palpation (GI): Soft to palpation Auscultation: normal bowel sounds General: Yes no CVA tenderness Back/Spine/Pelvis Back: no CVA tenderness Skin General skin exam: no rashes or lesions noted Neuro General: patient oriented x3 Extrem General: Yes no pedal edema Assessment & Plan Assessment & Plan (1) Hyperparathyroidism: Code(s): E21.3 - Hyperparathyroidism, unspecified (2) CKD (chronic kidney disease) stage 4, GFR 15-29 ml/min: Code(s): N18.4 - Chronic kidney disease, stage 4 (severe) Plan Rio has stage 4 chronic kidney disease due to vascular disease . He has proteinuria. His blood pressure is currently well controlled on current medication regimen. He has history of CVA but has not had any new deficits. He is on PURNIMA-inhibitor. He has not had any blood work recently. I started him on calcitriol 0.25 mcg twice a week. His blood pressure is at goal. He is maintaining good hydration and should avoid nonsteroidal anti-inflammatories. He is on aspirin. I did not make any medication changes today. Blood work ordered. Orders: Orders Creatinine Today E21.3 - Hyperparathyroidism, unspecified, N18.4 - Chronic kidney disease, stage 4 (severe) Calcium Today E21.3 - Hyperparathyroidism, unspecified, N18.4 - Chronic kidney disease, stage 4 (severe) Phosphorus Today E21.3 - Hyperparathyroidism, unspecified, N18.4 - Chronic kidney disease, stage 4 (severe) Parathyroid Hormone Intact Today E21.3 - Hyperparathyroidism, unspecified, N18.4 - Chronic kidney disease, stage 4 (severe) Blood Urea Nitrogen Today E21.3 - Hyperparathyroidism, unspecified, N18.4 - Chronic kidney disease, stage 4 (severe) Electrolytes Today E21.3 - Hyperparathyroidism, unspecified, N18.4 - Chronic kidney disease, stage 4 (severe) Medications: New calcitriol administer after dialysis on dialysis days 0.25 mcg PO 2XW 10 caps 4RF Coding Level of Care Code Est Pt Level 4 (10227) Diagnoses Hyperparathyroidism E21.3 CKD (chronic kidney disease) stage 4, GFR 15-29 ml/min N18.4 Results Reviewed Nephrology Results: Hgb 12.4 g/dl (14.0-18.0) L 10/28/23 WBC 6.3 X10*3/uL (4.8-10.8) 10/28/23 Plt Count 153 X10*3/uL (160-400) L 10/28/23 Sodium 137 mmol/L (135-145) 10/28/23 Potassium 4.4 mmol/L (3.3-5.1) 10/28/23 Chloride 103 mmol/L (96-108) 10/28/23 Carbon Dioxide 24 mmol/L (22-29) 10/28/23 BUN 38 mg/dL (9-16) H 10/28/23 Creatinine 1.91 mg/dL (0.5-1.4) H 10/28/23 Calcium 9.5 mg/dL (8.4-10.2) 10/28/23 Phosphorus 3.1 mg/dL (2.7-4.5) 10/28/23 PTH Intact 245.9 pg/mL (8.7-77.1) H 10/28/23 Urine Protein Negative mg/dL (Neg-Trace) 08/23/23
[2023-10-30 15:35] VITALS: BP 110/60; PULSE 67; O2SAT 98
== END 2023-10-30 15:59 | disposition home or self-care (01) ==
PROVIDERS: PCP Internal Medicine; Visit Provider Internal Medicine Nephrology
DX: E21.3 Hyperparathyroidism, unspecified (principal); N18.4 Chronic kidney disease, stage 4 (severe)
CPT/HCPCS: 99214

== ENCOUNTER → 2023-10-30 14:53 | Outpatient (BNVA) | payer OTHER, SELFPAY | PROVIDERS: PCP Internal Medicine; Visit Provider Internal Medicine Nephrology | DX: N18.4 Chronic kidney disease, stage 4 (severe) (principal); E21.3 Hyperparathyroidism, unspecified | CPT/HCPCS: 99212 ==

== ENCOUNTER 2023-11-07 16:46 | Emergency (ER) | payer OTHER, SELFPAY ==
--- NOTE | ~2023-11-07 | CT_ITS ---
EXAMINATION: CT HEAD WITHOUT CONTRAST CT CERVICAL SPINE WITHOUT CONTRAST CLINICAL INFORMATION: Fall with posterior head strike. COMPARISON: CT from 04/19/2022. TECHNIQUE: Contiguous axial imaging was performed from the skullbase to vertex without intravenous administration of contrast. Multidetector helical imaging was performed through the cervical spine. This CT examination was performed using dose optimization techniques as appropriate, variously including the following: *Automated exposure control *Adjustment of mA and/or kV according to patient size (this includes techniques or standardized protocols for targeted exams where dose is matched to indication/reason for exam; i.e. extremities or head) *Use of iterative reconstruction technique DLP: 460.9, 760.8 mGy-cm. FINDINGS: HEAD: There is no evidence of acute intracranial hemorrhage or territorial infarction. No abnormal mass effect or midline shift is seen. There is stable prominence of the bifrontal extra-axial fluid spaces which may be due to volume loss versus small chronic subdural hygromas. Severe diffuse brain parenchymal volume loss is again evident with commensurate ex vacuo dilatation of the ventricles. Extensive chronic white matter microangiopathic changes noted. There are scattered chronic lacunar infarcts in the cerebellum, thalami, and basal ganglia. The osseous structures and soft tissues are normal. The mastoid air cells and visualized portions of the paranasal sinuses are well aerated. CERVICAL SPINE: Multilevel disc space narrowing evident with endplate osteophyte formation and facet arthropathy. Disc-osteophyte complexes contributing to central canal narrowing and foraminal encroachment. Rightward curvature of the cervical spine noted. The atlantoaxial articulation is normally maintained. The paraspinal soft tissues are normal. The lung apices are clear. CT/CT cervical spine wo IV con IMPRESSION: 1. No acute intracranial hemorrhage or territorial infarction. Advanced chronic white matter microangiopathy with chronic deep east matter and cerebellar lacunar infarcts. Significant diffuse brain parenchymal volume loss. 2. No evidence of acute cervical spine traumatic injury. Multilevel cervical spondylosis and facet arthropathy.
[2023-11-07 16:58] VITALS: BP 117/45; PULSE 62; RESP 14; TEMP 36.7; O2SAT 100; BMI 30.2
--- NOTE | 2023-11-07 17:14 | ED.FALL ---
HPI - Fall General Chief Complaint: Fall Stated Complaint: fell, hit head and has a bump Time Seen by Provider: 11/07/23 18:55 Source: patient Mode of arrival: EMS Limitations: other History of Present Illness HPI Narrative: 73-year-old male past medical history significant for CVA with residual left-sided weakness hypertension thrombocytopenia coronary artery disease myocardial infarction chronic kidney disease type 2 diabetes right inguinal hernia presents emergency room after a fall. Patient is currently at an assisted living facility. Patient aspirin patient did hit his head he denies loss conscious denies chest pain fever denies any recent illness Related Data Home Medications Medication Instructions Recorded Confirmed aspirin 81 mg tablet,delayed 81 mg PO DAILY 11/15/20 08/24/23 release (Adult Low Dose Aspirin) rosuvastatin 10 mg tablet (Crestor) 10 mg PO BEDTIME 08/24/23 08/24/23 Previous Rx's Medication Instructions Recorded walker #1 ea 11/15/20 lidocaine 4 % topical patch 1 patch topical DAILY PRN pain #15 05/22/22 (Aspercreme (lidocaine)) ea AFO prosthetic #1 ea 06/05/22 blood pressure monitor (Blood #1 ea 11/19/22 Pressure Kit) cyanocobalamin (vitamin B-12) 1,000 mcg PO DAILY #90 caps 01/15/23 1,000 mcg capsule blood sugar diagnostic (FreeStyle #100 ea 02/13/23 Lite Strips) folic acid 1 mg tablet 1 mg PO DAILY #90 tabs 02/13/23 adult incontinence wipes #4 multiple units 05/01/23 adult pull ups #120 ea 05/01/23 disposable gloves #1,000 ea 05/01/23 washable bedpads #2 ea 05/01/23 furosemide 20 mg tablet 20 mg PO DAILY 90 days #90 tabs 05/11/23 amlodipine 10 mg tablet 10 mg PO DAILY 90 days #90 tabs 07/08/23 lisinopril 2.5 mg tablet 2.5 mg PO DAILY 90 days #90 tabs 07/08/23 clotrimazole 1 % topical cream 1 appl topical BID 4 weeks #45 08/16/23 grams calcitriol 0.25 mcg capsule 0.25 mcg PO 2XW #10 caps 10/30/23 Allergies Allergy/AdvReac Type Severity Reaction Status Date / Time No Known Allergies Allergy Verified 11/07/23 16:58 Review of Systems Review of Systems: Review of systems: General: Fall Patient denies any fever chills recent illness Musculoskeletal: Denies back pain or body aches or other injuries HEENT: denies headache, runny nose, ear pain Respiratory: denies shortness of breath, cough Cardiovascular: no chest pain or palpitations : denies dysuria, frequency Abdomen: no nausea vomiting denies abdominal pain Extremities: no swelling, no pain Skin: no diaphoresis Yes all other systems are reviewed and are negative [facility] Past Medical History Medical History (Updated 11/07/23 @ 18:58 by Nader Valencia DO) Rash of groin Atherosclerotic cardiovascular disease Colon cancer screening Coronary artery disease Umbilical hernia Right inguinal hernia History of [place] (myocardial infarction) CKD (chronic kidney disease) stage 4, GFR 15-29 ml/min Thrombocytopenia Vitamin D deficiency History of CVA (cerebrovascular accident) Hypertension Hypercholesterolemia Type 2 diabetes mellitus with hyperglycemia Surgical History No pertinent past surgical history Family History Family History Father Heart disease Mother No problems noted. Social History Social History Housing: House Alcohol intake: former Patient Tobacco Use Status: Never used Tobacco e-Cigarette/Vaping Use: Never Used Second Hand Smoke Exposure: No Advance Directives Date on File: 04/20/22 service: No Current occupational status: retired Cognitive needs: Yes (wheel chair ) Hearing needs: No Vision needs: No Physical Exam Vital Signs: Vital Signs: Last Vital Signs Temp 98.1 F 11/07/23 16:58 Pulse 62 11/07/23 16:58 Resp 14 11/07/23 16:58 BP 117/45 L 11/07/23 16:58 Pulse Ox 100 11/07/23 16:58 O2 Del Method Room Air 11/07/23 16:58 BMI result Body Mass Index 30.2 Neurological exam: CN II- XII tested. Patient is alert and oriented to person place and time. Patient has no dysphagia or dysarthia, denies good vision in all four vision flores no nystagmus on exam, good strength to upper and lower extremities with normal reflexes to brachioradialis, wrist, patella and achilles. Negative romberg, good finger to nose and heel to sarabia. 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 he states he went to sit in his armchair when he slipped and hit the back of his head on the door frame. no LOC. takes aspiring daily. acting appropriately since. no headache, dizziness, n/v, vision changes. imaging ordered. Full HPI, ROS and PE to be performed by the primary ED provider. Medical Decision Making Medical Decision Making [facility] Narrative: Patient is alert and oriented is moving well patient has normal neuro exam I do think the patient safe to go home with close PCP follow-up Differential Diagnosis Differential Diagnoses: The differential diagnosis associated with the presentation includes Fall syncope acute intracranial Admission/Observation Consideration of admission/observation: Escalation of care including admission/observation considered Independent Interpretation I performed an independent interpretation of an: CT Scan Radiology Impression Discussion of test interpretation with radiology: I have reviewed the radiologist's reading. External Record Review External record reviewed: Inpatient record Discharge Plan Discharge Clinical Impression: Fall, Head injury Patient Disposition: Home, Self-Care Instructions: Fall Prevention for Older Adults (ED), Head Injury (ED) Additional Instructions: You were seen today in the emergency department after falling hitting her head. You underwent CT scan which was all normal. Please call follow-up with her doctor if you have any other concerns please do not hesitate to come back to emergency department Prescriptions: No Action (DME) AFO prosthetic See Rx Instructions .Route .MEDSUPPLY Qty: 1 0RF Rx Instructions: As directed cyanocobalamin (vitamin B-12) 1,000 mcg capsule 1,000 mcg PO DAILY Qty: 90 3RF folic acid 1 mg tablet 1 mg PO DAILY Qty: 90 3RF (DME) adult pull ups XL See Rx Instructions .Route .MEDSUPPLY Qty: 120 12RF Rx Instructions: As directed (DME) washable bedpads XL See Rx Instructions .Route .MEDSUPPLY Qty: 2 12RF Rx Instructions: As directed (DME) disposable gloves Misc See Rx Instructions .Route Qty: 1000 12RF Rx Instructions: As directed (DME) adult incontinence wipes See Rx Instructions .Route .MEDSUPPLY Qty: 4 12RF Rx Instructions: As directed furosemide 20 mg tablet 20 mg PO DAILY 90 Days Qty: 90 2RF amlodipine 10 mg tablet 10 mg PO DAILY 90 Days Qty: 90 2RF lisinopril 2.5 mg tablet 2.5 mg PO DAILY 90 Days Qty: 90 2RF clotrimazole 1 % cream 1 appl topical BID 28 Days Qty: 45 1RF rosuvastatin [Crestor] 10 mg tablet 10 mg PO BEDTIME aspirin [Adult Low Dose Aspirin] 81 mg tablet,delayed release (DR/EC) 81 mg PO DAILY (DME) walker Misc See Rx Instructions .ROUTE .MEDSUPPLY Qty: 1 0RF Rx Instructions: As directed lidocaine [Aspercreme (lidocaine)] 4 % adhesive patch,medicated 1 patch topical DAILY PRN (Reason: pain) Qty: 15 0RF (DME) FreeStyle Lite Strips Strip See Rx Instructions .ROUTE .MEDSUPPLY Qty: 100 3RF Rx Instructions: As directed check the BS QD (DME) blood pressure monitor [Blood Pressure Kit] Kit See Rx Instructions .ROUTE .MEDSUPPLY Qty: 1 0RF Rx Instructions: As directed calcitriol 0.25 mcg capsule 0.25 mcg PO 2XW Qty: 10 4RF Rx Instructions: administer after dialysis on dialysis days
== END 2023-11-07 19:47 | disposition home or self-care (01) ==
LOC: HO.ED 19:35
PROVIDERS: Emergency Provider Student in an Organized Health Care Education/Training Program; PCP Internal Medicine
DX: S09.90XA Unspecified injury of head, initial encounter (principal); I12.9 Hypertensive chronic kidney disease with stage 1 through stage 4 chronic kidney disease, or unspecified chronic kidney disease; E11.22 Type 2 diabetes mellitus with diabetic chronic kidney disease; N18.4 Chronic kidney disease, stage 4 (severe); I69.354 Hemiplegia and hemiparesis following cerebral infarction affecting left non-dominant side; I25.2 Old myocardial infarction; Z79.82 Long term (current) use of aspirin; W01.198A Fall on same level from slipping, tripping and stumbling with subsequent striking against other object, initial encounter; Y93.9 Activity, unspecified; Y92.199 Unspecified place in other specified residential institution as the place of occurrence of the external cause; Y99.9 Unspecified external cause status
CPT/HCPCS: 70450; 72125; 99281; 99284

== ENCOUNTER 2023-12-13 14:24 | Outpatient (AMB) | payer OTHER, SELFPAY ==
[2023-12-13 14:30] VITALS: BP 102/58; PULSE 60
--- NOTE | 2023-12-13 14:30 | A.OFFPC_ITS ---
Vital Signs 12/13/23 14:30 Height 5 ft 2 in BMI Reason not done Patient refused/unable BP 102/58 L Blood Pressure Location Lt brachial Position Sitting Pulse 60 Pulse Source Pulse Oximeter Oxygen Delivery Method Room Air Intake Visit Reasons: Annual Exam Intake Note: Patient is here today for a physical. Instructional Supervisor Required: No Allergies No Known Allergies Allergy (Verified 12/13/23 14:30) Medication List - Last Reconciled 12/13/23 by Umm Mckeon MD [adult incontinence wipes As directed] [adult pull ups As directed] [AFO prosthetic As directed] amlodipine 10 mg PO DAILY 90 days aspirin (Adult Low Dose Aspirin) 81 mg PO DAILY blood pressure monitor (Blood Pressure Kit) As directed blood sugar diagnostic (FreeStyle Lite Strips) As directed check the BS QD calcitriol 0.25 mcg PO 2XW clotrimazole 1% 1 appl topical BID 4 weeks cyanocobalamin (vitamin B-12) 1,000 mcg PO DAILY disposable gloves As directed folic acid 1 mg PO DAILY furosemide 20 mg PO DAILY 90 days lidocaine 4% (Aspercreme (lidocaine)) 1 patch topical DAILY PRN lisinopril 2.5 mg PO DAILY 90 days rosuvastatin (Crestor) 10 mg PO BEDTIME walker As directed [washable bedpads As directed] Tobacco use date assessed: 12/13/23 Fall risk assessment: No Falls in past year Last assessed Fall Risk: 12/13/23 Dental Screening Dental Screen Date: 12/13/23 Did you have a dental visit in the last 12 months?: No Did you have a dental problem in the last 6 months where you did not have access to dental care?: No HPI Annual Exam HPI Details 73-year-old obese male with diabetes luci litus controlled hypercholesterolemia hypertension chronic kidney disease history of CVA with left-sided weakness coronary artery disease coming in for physical exam. May 2023 last seen. Review of the notes in October 2023 patient had fall lives in assisted living facility CT scan done negative results. 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 complains of R hernia- [facility] Medical History (Updated 12/13/23 @ 15:31 by Umm Mckeon MD) Rib pain on left side Status post fall Rash of groin Blister of foot, right Atherosclerotic cardiovascular disease Colon cancer screening Coronary artery disease Umbilical hernia Right inguinal hernia History of NH (myocardial infarction) CKD (chronic kidney disease) stage 4, GFR 15-29 ml/min Thrombocytopenia Vitamin D deficiency History of CVA (cerebrovascular accident) Hypertension Hypercholesterolemia Type 2 diabetes mellitus with hyperglycemia Surgical History No pertinent past surgical history Family History Father Heart disease Mother No problems noted. Social History Housing: House Alcohol intake: former Patient Tobacco Use Status: Never used Tobacco e-Cigarette/Vaping Use: Never Used Second Hand Smoke Exposure: No Advance Directives Date on File: 04/20/22 service: No Current occupational status: retired Cognitive needs: Yes (wheel chair ) Hearing needs: No Vision needs: No Questionnaire PHQ-9 Over the last 2 weeks, how often have you been bothered by any of the following problems? 1. Little interest or pleasure in doing things: not at all 2. Feeling down, depressed, or hopeless: not at all 3. Trouble falling or staying asleep, or sleeping too much: not at all 4. Feeling tired or having little energy: not at all 5. Poor appetite or overeating: not at all 6. Feeling bad about yourself - or that you are a failure or have let yourself or your family down: not at all 7. Trouble concentrating on things, such as reading the newspaper or watching television: not at all 8. Moving or speaking so slowly that other people could have noticed. Or the opposite - being so fidgety or restless that you have been moving around a lot more than usual: not at all 9. Thoughts that you would be better off or of hurting yourself in some way: not at all Total score: 0 Depression Screening Interpretation: Negative Depression Screening Done: Yes Source: Developed by Drs. Anoop Hartmann, Aubrie Eli, Corbin Shukla and colleagues, with an educational dalia from [employer]. Thrive Questionnaire Date Thrive assessed: 12/13/23 I am a: Patient What is your living situation today?: I have a steady place to live Within the past 12 months, did the food you bought not last and you didn't have the money to get more?: Never true Within the past 12 months, did you worry whether your food would run out before you got money to buy more?: Never true Do you have trouble paying for medicines?: No Do you have trouble getting transportation to medical appointments?: No Do you have trouble paying your heating and electricity bill?: No Do you have trouble taking care of your child, family member or friend?: No Do you have trouble with day-to-day activities such as bathing, preparing meals, shopping, managing finances, etc.?: No Are you currently unemployed and looking for a job?: No Are you interested in more education?: No Please select the resources that you would like help with: None Currently or been in a relationship where the following occur: no concerns reported THRIVE Score: 0 AUDIT C Alcohol Use Questionnaire (AUDIT-C) 1. How often do you have a drink containing alcohol?: Never 3. How often do you have six or more drinks on one occasion?: Never Total Score: 0 Score Reviewed/Action Taken: No ROSEMARY-7 AMB Questionnaire ROSEMARY-7 Date ROSEMARY - 7 assessed: 12/13/23 Feeling nervous, anxious, or on edge: 0 = Not at all Not being able to stop or control worryin = Not at all Worrying too much about different things: 0 = Not at all Trouble relaxin = Not at all Being so restless that it is hard to sit still: 0 = Not at all Becoming easily annoyed or irritable: 0 = Not at all Feeling afraid as if something awful might happen: 0 = Not at all Total ROSEMARY-7 score (0-4 normal; 5-9 mild; 10-14 moderate; 15-21 severe): 0 Source: Developed by Drs. Anoop Hartmann, Aubrie Eli, Corbin Shukla and colleagues, with an educational dalia from [employer]. ROSEMARY-7 Assessment Billing ROSEMARY-7 Assessment Tool: ROSEMARY-7 Assessment 28539 Review of Systems Const Denies poor appetite and Denies weakness Eyes Denies no additional complaints ENT Reports Normal hearing present, Denies dizziness, Denies nasal congestion, Denies tinnitus and Denies sore throat Card Denies chest pain, Denies syncope, Denies rapid heart rate and Denies dyspnea Resp Denies cough and Denies dyspnea GI Denies change in stool character, Reports constipation, Denies diarrhea, Denies nausea and Denies vomiting Denies dysuria and Denies urinary frequency Neuro Reports Normal hearing present, Denies confusion, Denies dizziness, Denies syncope and Denies weakness Psych Denies confusion Physical exam (Primary Care) Vital Signs: Last Vital Signs Pulse 60 12/13/23 14:30 BP 102/58 L 12/13/23 14:30 Oxygen Delivery Method Room Air 12/13/23 14:30 Tobacco/Smoking Status: Tobacco use Status Tobacco use date assessed 12/13/23 12/13/23 14:31 Patient Tobacco Use Status Never used Tobacco 12/13/23 14:31 e-Cigarette/Vaping Use Never Used 12/13/23 14:31 PHQ-9: PHQ-9 Score PHQ-9: Total score 0 12/13/23 14:59 Depression Screening Interpretation: Negative Thrive Assessment: Date of Thrive Assessment Date Thrive assessed 12/13/23 12/13/23 14:31 Currently or been in a relationship where the following occur: no concerns re ported Const General: No confusion Orientation/consciousness: No confusion HENMT Head: Yes normocephalic Ears: external ears normal and TM's normal bilaterally Face and sinus: Yes normal facial exam Mouth: moist mucous membranes Throat: Yes tonsils normal Eyes Conjunctivae: conjunctivae normal Pupils: Equal, round and reactive pupils present and Pupil accommodation reflex normal Direct Ophthalmoscopy: normal light reflex Neck Neck: No lymphadenopathy Thyroid: Thyroid normal Chest Chest palpation & inspection: normal inspection of the chest Resp Effort & Inspection: normal respiratory effort and no audible wheezes Auscultation: clear to auscultation bilaterally, no crackles, no wheezes and lung sounds not diminished Cardio Rate: regular rate Rhythm: regular rhythm Peripheral pulses: radial pulses present and dorsalis pedis present GI Other: decline rectal exam Palpation (GI): no masses Auscultation: normal bowel sounds and normoactive bowel sounds Rectal Exam - Male: Yes deferred Other: L shoulder shrug missing, but can move all extremeties, L side 4/5, R side 5/5, LARGE R inguinal hernia Skin General skin exam: no rashes or lesions noted Rashes: no rashes Neuro General: No confusion Cranial nerves: Yes Equal, round and reactive pupils present and Yes Normal hearing present Cognition (Neuro): normal cognition Results AMB Hemoglobin A1c AMB Hemoglobin A1c 5.8 % Last Edit by GEORGINA Orlando on 12/13/23 14:48 Immunizations tetanus-diphtheria toxoids-Td 2 Lf unit-2 Lf unit/0.5 mL IM suspension Performing Provider: Umm Mckeon MD Performing [facility] Administered by: GEORGINA Orlando on 12/13/23 15:36 Dose Route Admin Location Dispensed Lot Number Expiration Date NDC Gas Compressor Turbine Operator 0.5 mL IM Left Deltoid 0.5 mL [id number] 09/21/24 [address]-2 [employer] VIS Given Date VIS Provided VIS Publication Date 12/13/23 Single Vaccine 21 Eligibility Eligibility Date Funding Source Not VFC Eligible 12/13/23 State funds Results Reviewed Results Reviewed: Laboratory Last Values Hgb A1c (Clinic) 5.8 % (4.0-6.0) 12/13/23 14:47 Assessment and Plan Assessment & Plan (1) Annual physical exam: Code(s): Z00.00 - Encounter for general adult medical examination without abnormal findings (2) Colon cancer screening declined: Code(s): Z53.20 - Procedure and treatment not carried out because of patient's decision for unspecified reasons (3) Atherosclerotic cardiovascular disease: Code(s): I25.10 - Atherosclerotic heart disease of [place] coronary artery without angina pectoris Plan: Control the cholesterol, weight, blood pressure, diabetes continue with aspirin 81 mg once a day (4) History of CVA (cerebrovascular accident): Comment: Left-sided weakness April 2009 Code(s): Z86.73 - Personal history of transient ischemic attack (TIA), and cerebral infarction without residual deficits Plan: Control the cholesterol, weight, blood pressure, diabetes (5) Type 2 diabetes mellitus with hyperglycemia: Code(s): E11.65 - Type 2 diabetes mellitus with hyperglycemia Qualifiers: Diabetes mellitus termite exterminator helper insulin use: without termite exterminator helper use Qualified Code(s): E11.65 - Type 2 diabetes mellitus with hyperglycemia Plan: Decrease the amount of carbohydrate intake, pasta, bread, rice and potatoes are all sugar and that is aside from all the sweet stuff, remember that fruits are good but they are Sweet also. Hemoglobin A1c goal of less than 7.0. Diet controlled (6) Hypercholesterolemia: Code(s): E78.00 - Pure hypercholesterolemia, unspecified Plan: Avoid fried foods, chicken skin, eggs, butter margarine, pastries and meat. Be it pork or beef they have a lot of cholesterol LDL goal of less than 70 and triglyceride of less than 150. Patient will need blood work (7) Hypertension: Code(s): I10 - Essential (primary) hypertension Qualifiers: Hypertension type: essential hypertension Qualified Code(s): I10 - Essential (primary) hypertension Plan: Continue with blood pressure medication. Decrease salt intake and exercise takes amlodipine 10 mg once a day lisinopril 2.5 mg once a day (8) CKD (chronic kidney disease) stage 4, GFR 15-29 ml/min: Code(s): N18.4 - Chronic kidney disease, stage 4 (severe) Plan: Keep well hydrated hydrated continue follow-up with Nephrology. (9) Right inguinal hernia: Code(s): K40.90 - Unilateral inguinal hernia, without obstruction or gangrene, not specified as recurrent Plan: patient states has been seen by Surgeon but high surgical risk (10) Tinea cruris: Code(s): B35.6 - Tinea cruris Plan: diflucan rx sent and antifungal powder. (11) Urinary frequency: Code(s): R35.0 - Frequency of micturition Orders: Orders Complete Blood Count Auto Diff Today E11.65 - Type 2 diabetes mellitus with hyperglycemia Comprehensive Met. Panel Today E11.65 - Type 2 diabetes mellitus with hyperglycemia Lipid Panel Today E11.65 - Type 2 diabetes mellitus with hyperglycemia, E78.00 - Pure hypercholesterolemia, unspecified Free T4 (Free Thyroxine) Today E11.65 - Type 2 diabetes mellitus with hyperglycemia Thyroid Stimulating Hormone Today E11.65 - Type 2 diabetes mellitus with hyperglycemia Magnesium Today E11.65 - Type 2 diabetes mellitus with hyperglycemia US bladder Today R35.0 - Frequency of micturition AMB Hemoglobin A1c Today E11.65 - Type 2 diabetes mellitus with hyperglycemia Creatinine Urine Today E11.65 - Type 2 diabetes mellitus with hyperglycemia Microalbumin, Random (w Creat) Today E11.65 - Type 2 diabetes mellitus with hyperglycemia Vitamin B12 and Folate Today E11.65 - Type 2 diabetes mellitus with hyperglycemia Td State Immunization Today Z23 - Encounter for immunization Medications: New miconazole nitrate 2% (Zeasorb AF) 1 appl topical BID 85 grams 3RF B35.6 - Tinea cruris fluconazole 2 tabs first day then 1 tab QD x 7 days orally daily; 8 tabs 0RF B35.6 - Tinea cruris tetanus-diphtheria toxoids-Td 0.5 mL IM ONCE 0.5 mL 0RF Z23 - Encounter for immunization Coding Level of Care Code Est Pt Prev Care >65y(80201) Diagnoses Annual physical exam Z00.00 Colon cancer screening declined Z53.20 Atherosclerotic cardiovascular disease I25.10 History of CVA (cerebrovascular accident) Z86.73 Type 2 diabetes mellitus with hyperglycemia, without long-term current use of insulin E11.65 Diabetes mellitus termite exterminator helper insulin use: without termite exterminator helper use Hypercholesterolemia E78.00 Essential hypertension I10 Hypertension type: essential hypertension CKD (chronic kidney disease) stage 4, GFR 15-29 ml/min N18.4 Right inguinal hernia K40.90 Tinea cruris B35.6 Urinary frequency R35.0 Additional Codes ROSEMARY-7 Assessment Billing - ROSEMARY-7 Assessment Tool: ROSEMARY-7 Assessment 42529 ([id number]) PHQ-9 - 45601 - PHQ-9 Billing: ([id number])
== END 2023-12-13 15:44 | disposition home or self-care (01) ==
PROVIDERS: PCP Internal Medicine; Visit Provider Internal Medicine
DX: Z00.00 Encounter for general adult medical examination without abnormal findings (principal); I12.9 Hypertensive chronic kidney disease with stage 1 through stage 4 chronic kidney disease, or unspecified chronic kidney disease; N18.4 Chronic kidney disease, stage 4 (severe); Z23 Encounter for immunization; E11.65 Type 2 diabetes mellitus with hyperglycemia; Z53.20 Procedure and treatment not carried out because of patient's decision for unspecified reasons; I25.10 Atherosclerotic heart disease of native coronary artery without angina pectoris; Z86.73 Personal history of transient ischemic attack (TIA), and cerebral infarction without residual deficits; E78.00 Pure hypercholesterolemia, unspecified; K40.90 Unilateral inguinal hernia, without obstruction or gangrene, not specified as recurrent; B35.6 Tinea cruris; R35.0 Frequency of micturition
CPT/HCPCS: 83036; 90471; 90714; 99397

== ENCOUNTER 2023-12-30 15:04 | Outpatient (REF) | payer OTHER, SELFPAY ==
--- NOTE | ~2023-12-30 | US_ITS ---
EXAMINATION: US PELVIS LIMITED (BLADDER) CLINICAL INFORMATION: Frequency of micturition. COMPARISON: CT abdomen and pelvis 08/16/2022. TECHNIQUE: Real-time imaging of the bladder. FINDINGS: BLADDER: Partially distended. Left ureteral jet is demonstrated; right is not. Prevoid bladder volume is 131.98 mL. Postvoid bladder volume is 16.19 mL. ADDITIONAL FINDINGS: Prostate measurements are of limited accuracy as prostate not well visualized. Prostate volume of approximately 33.4 mL. US/US bladder IMPRESSION: 1. Partially distended. Left ureteral jet is demonstrated; right is not. Prevoid bladder volume is 131.98 mL. Postvoid bladder volume is 16.19 mL. 2. Prostate measurements are limited accuracy as prostate not well visualized. Prostate volume of approximately 33.4 mL.
== END 2023-12-30 15:05 | disposition home or self-care (01) ==
LOC: HO.US 15:04
PROVIDERS: PCP Internal Medicine; Visit Provider Internal Medicine
DX: R35.0 Frequency of micturition (principal)
CPT/HCPCS: 76857

== ENCOUNTER 2024-02-01 09:31 | Outpatient (REF) | payer OTHER, SELFPAY ==
[2024-02-01 10:13] LABS: MANUAL DIFF FLAG NO
[2024-02-01 10:30] LABS: Basophils Percent Auto 0.5 % (0-2); Eosinophils Absolute Auto 0.2 X10*3/uL (0.0-0.4); Eosinophils Percent Auto 2.6 % (0-4); Hematocrit 34.7 % (42.0-52.0); Hemoglobin 11.9 g/dl (14.0-18.0); Imm Gran Abs Auto 0.04 X10*3/uL (0.00-0.03); Imm Gran Pct Auto 0.5 % (0.0-0.4); Lymphocytes Percent Auto 22.2 % (20-40); Mean Corpuscular HGB Conc 34.3 g/dl (31.0-36.0); Mean Corpuscular Hemoglobin 30.7 pg (27.0-33.0); Mean Corpuscular Volume 89.4 fL (80.0-98.0); Mean Platelet Volume 10.3 fL (9.4-12.4); Monocytes Absolute Auto 0.6 X10*3/uL (0.1-1.2); Monocytes Percent Auto 6.6 % (2-11); Neutrophils Absolute Auto 5.9 x10*3/uL (2.0-8.3); Neutrophils Percent Auto 67.6 % (45-73); Platelet Count 144 X10*3/uL (160-400); Red Blood Count 3.88 X10*6/uL (4.60-5.80); Red Cell Distribution Width 13.1 % (11.0-16.0); White Blood Count 8.8 X10*3/uL (4.8-10.8)
[2024-02-01 11:06] LABS: Alanine Aminotransferase 8 U/L (0-40); Albumin Level 4.4 g/dL (3.5-5.0); Alkaline Phosphatase 69 U/L (39-117); Anion Gap 13 (12-20); Aspartate Amino Transferase 11 U/L (5-37); Bilirubin Total 0.6 mg/dL (0.0-1.0); Blood Urea Nitrogen 31 mg/dL (9-16); Calcium 9.9 mg/dL (8.4-10.2); Carbon Dioxide 26 mmol/L (22-29); Chloride 106 mmol/L (96-108); Cholesterol 121 mg/dL (<200); Estimated Glomerular Filt Rate 34; Glucose Random 99 mg/dL (60-115); HDL Cholesterol 41 mg/dL (>40); LDL Cholesterol Calculated 58 mg/dL (<100); Magnesium 2.2 mg/dL (1.6-2.6); Phosphorus 2.7 mg/dL (2.7-4.5); Sodium 140 mmol/L (135-145); Total Protein 7.8 g/dL (6.5-8.0); Triglycerides 110 mg/dL (<150)
[2024-02-01 11:10] LABS: Parathyroid Hormone Intact 221.9 pg/mL (8.7-77.1)
[2024-02-01 11:23] LABS: Free T4 (Free Thyroxine) 0.86 ng/dL (0.71-1.85)
[2024-02-01 11:25] LABS: Thyroid Stimulating Hormone 2.12 uIU/mL (0.32-4.0)
[2024-02-01 11:31] LABS: Folate 15.1 ng/mL (> or = 4.0); Vitamin B12 478 pg/mL (200-900)
== END 2024-02-01 09:32 | disposition home or self-care (01) ==
LOC: HO.LAB 09:31
PROVIDERS: Absent Provider Internal Medicine; PCP Internal Medicine; Visit Provider Internal Medicine Nephrology
DX: E21.3 Hyperparathyroidism, unspecified (principal); E78.00 Pure hypercholesterolemia, unspecified; E11.22 Type 2 diabetes mellitus with diabetic chronic kidney disease; E11.65 Type 2 diabetes mellitus with hyperglycemia; N18.4 Chronic kidney disease, stage 4 (severe)
CPT/HCPCS: 36415; 80053; 80061; 82607; 82746; 83735; 83970; 84100; 84439; 84443; 85025

== ENCOUNTER 2024-02-05 14:52 | Outpatient (AMB) | payer OTHER, SELFPAY ==
[2024-02-05 15:05] VITALS: BP 110/60; PULSE 61; O2SAT 96
--- NOTE | 2024-02-05 15:05 | HO.NEPHOV_ITS ---
Vital Signs 02/05/24 15:05 Height 5 ft 2 in BMI Reason not done Patient refused/unable BP 110/60 Blood Pressure Location Rt brachial Position Sitting Pulse 61 Pulse Source Pulse Oximeter Pulse Oximetry (%) 96 Oxygen Delivery Method Room Air Intake Visit Reasons: CKD/ 3 MO FU/ LVM Intake Note: Vision Care Associate services refused, form signed and scanned into chart. Vision Care Associate Required: Yes Vision Care Associate Services: Vision Care Associate Offered & Declined Vision Care Associate Name: Malorie (Daughter) Accompanied by: Daughter Allergies No Known Allergies Allergy (Verified 02/05/24 15:08) HPI Comments Details: I had the privilege of seeing Rio in follow-up of his chronic kidney disease and hypertension. His history of CVA. He does not have any new neurological symptoms or deficits. He is compliant with his medications. He does not have any orthostatic symptoms. He is ambulating with a walker at home. He denies chest pain, shortness of breath, nausea vomiting, diarrhea, urinary symptoms or pedal edema. He avoids nonsteroidal anti-inflammatory medication and maintain good hydration. He has not had any blood work done for long time. He did not have any specific new complaints at the time of this office visit. PENDING SALE TO [facility] Medical History (Updated 02/05/24 @ 15:21 by Amaury Leon MD) Rib pain on left side Status post fall Rash of groin Blister of foot, right Atherosclerotic cardiovascular disease Colon cancer screening Coronary artery disease Umbilical hernia Right inguinal hernia History of [place] (myocardial infarction) CKD (chronic kidney disease) stage 4, GFR 15-29 ml/min Thrombocytopenia Vitamin D deficiency History of CVA (cerebrovascular accident) Hypertension Hypercholesterolemia Type 2 diabetes mellitus with hyperglycemia Surgical History No pertinent past surgical history Family History Father Heart disease Mother No problems noted. Social History Housing: House Alcohol intake: former Patient Tobacco Use Status: Never used Tobacco e-Cigarette/Vaping Use: Never Used Second Hand Smoke Exposure: No Advance Directives Date on File: 04/20/22 service: No Current occupational status: retired Cognitive needs: Yes (wheel chair ) Hearing needs: No Vision needs: No Physical Exam Vital Signs: Last Vital Signs Pulse 61 02/05/24 15:05 BP 110/60 02/05/24 15:05 Pulse Ox 96 02/05/24 15:05 Oxygen Delivery Method Room Air 02/05/24 15:05 Const General: comfortable and no acute distress Orientation/consciousness: patient oriented x3 HEENT Head: Yes normocephalic Mouth: Normal oral and palatal mucosa present Eyes EOM: EOMs intact bilaterally Neck Neck: Yes supple Resp Auscultation: clear to auscultation bilaterally Cardio Jugular venous distension: no JVD Rate: regular rate GI Palpation (GI): Soft to palpation Auscultation: normal bowel sounds General: Yes no CVA tenderness Back/Spine/Pelvis Back: no CVA tenderness Skin General skin exam: no rashes or lesions noted Neuro General: patient oriented x3 Extrem General: Yes no pedal edema Results Reviewed Nephrology Results: Hgb 11.9 g/dl (14.0-18.0) L 02/01/24 WBC 8.8 X10*3/uL (4.8-10.8) 02/01/24 Plt Count 144 X10*3/uL (160-400) L 02/01/24 Sodium 140 mmol/L (135-145) 02/01/24 Potassium 5.0 mmol/L (3.3-5.1) 02/01/24 Chloride 106 mmol/L (96-108) 02/01/24 Carbon Dioxide 26 mmol/L (22-29) 02/01/24 BUN 31 mg/dL (9-16) H 02/01/24 Creatinine 1.96 mg/dL (0.5-1.4) H 02/01/24 Calcium 9.9 mg/dL (8.4-10.2) 02/01/24 Phosphorus 2.7 mg/dL (2.7-4.5) 02/01/24 PTH Intact 221.9 pg/mL (8.7-77.1) H 02/01/24 Urine Protein Negative mg/dL (Neg-Trace) 08/23/23 Assessment & Plan Assessment & Plan (1) CKD (chronic kidney disease) stage 4, GFR 15-29 ml/min: Code(s): N18.4 - Chronic kidney disease, stage 4 (severe) Category: Medical (2) Hypertension: Code(s): I10 - Essential (primary) hypertension Category: Medical Qualifiers: Hypertension type: essential hypertension Qualified Code(s): I10 - Essential (primary) hypertension (3) Anemia in chronic kidney disease (CKD): Code(s): N18.9 - Chronic kidney disease, unspecified; D63.1 - Anemia in chronic kidney disease Category: Medical Qualifiers: Chronic kidney disease stage: stage 4 (severe) Qualified Code(s): N18.4 - Chronic kidney disease, stage 4 (severe); D63.1 - Anemia in chronic kidney disease (4) Secondary hyperparathyroidism (of renal origin): Code(s): N25.81 - Secondary hyperparathyroidism of renal origin Category: Medical Plan Rio has stage 4 chronic kidney disease due to vascular disease . He has proteinuria. His blood pressure is currently well controlled on current medication regimen. He has history of CVA but has not had any new deficits. He is on PURNIMA-inhibitor. He has not had any blood work recently. I increased his calcitriol 0.25 mcg to 5 times a week. His blood pressure is at goal. He is maintaining good hydration and should avoid nonsteroidal anti-inflammatories. He is on aspirin. I did not make any other medication changes today. Blood work ordered. Orders: Orders Creatinine Today D63.1 - Anemia in chronic kidney disease, I10 - Essential (primary) hypertension, N18.4 - Chronic kidney disease, stage 4 (severe), N25.81 - Secondary hyperparathyroidism of renal origin Blood Urea Nitrogen Today D63.1 - Anemia in chronic kidney disease, I10 - Essential (primary) hypertension, N18.4 - Chronic kidney disease, stage 4 (severe), N25.81 - Secondary hyperparathyroidism of renal origin Electrolytes Today D63.1 - Anemia in chronic kidney disease, I10 - Essential (primary) hypertension, N18.4 - Chronic kidney disease, stage 4 (severe), N25.81 - Secondary hyperparathyroidism of renal origin Parathyroid Hormone Intact Today D63.1 - Anemia in chronic kidney disease, I10 - Essential (primary) hypertension, N18.4 - Chronic kidney disease, stage 4 (severe), N25.81 - Secondary hyperparathyroidism of renal origin Vitamin D 25-OH Total Today D63.1 - Anemia in chronic kidney disease, I10 - Essential (primary) hypertension, N18.4 - Chronic kidney disease, stage 4 (severe), N25.81 - Secondary hyperparathyroidism of renal origin Calcium Today D63.1 - Anemia in chronic kidney disease, I10 - Essential (primary) hypertension, N18.4 - Chronic kidney disease, stage 4 (severe), N25.81 - Secondary hyperparathyroidism of renal origin Medications: Changed From calcitriol administer after dialysis on dialysis days 0.25 mcg PO 2XW 10 caps 4RF To calcitriol 0.25 mcg PO 5XW 30 days 22 caps 4RF Coding Level of Care Code Est Pt Level 4 (48230) Diagnoses CKD (chronic kidney disease) stage 4, GFR 15-29 ml/min N18.4 Essential hypertension I10 Hypertension type: essential hypertension Anemia in stage 4 chronic kidney disease N18.4; D63.1 Chronic kidney disease stage: stage 4 (severe) Secondary hyperparathyroidism (of renal origin) N25.81
== END 2024-02-05 15:26 | disposition home or self-care (01) ==
PROVIDERS: PCP Internal Medicine; Visit Provider Internal Medicine Nephrology
DX: I12.9 Hypertensive chronic kidney disease with stage 1 through stage 4 chronic kidney disease, or unspecified chronic kidney disease (principal); N18.4 Chronic kidney disease, stage 4 (severe); D63.1 Anemia in chronic kidney disease; N25.81 Secondary hyperparathyroidism of renal origin
CPT/HCPCS: 99214

== ENCOUNTER → 2024-02-05 14:52 | Outpatient (BNVA) | payer OTHER, SELFPAY | PROVIDERS: PCP Internal Medicine; Visit Provider Internal Medicine Nephrology | DX: I12.9 Hypertensive chronic kidney disease with stage 1 through stage 4 chronic kidney disease, or unspecified chronic kidney disease (principal); N18.4 Chronic kidney disease, stage 4 (severe); D63.1 Anemia in chronic kidney disease; N25.81 Secondary hyperparathyroidism of renal origin | CPT/HCPCS: 99212 ==

== ENCOUNTER 2024-05-11 14:02 | Outpatient (AMB) | payer OTHER, SELFPAY ==
--- NOTE | 2024-05-11 14:12 | HO.NEPHOV ---
Vital Signs 05/11/24 14:13 Height 5 ft 2 in BMI Reason not done Patient refused/unable BP 114/54 L Blood Pressure Location Rt brachial Position Sitting Pulse 59 Pulse Source Pulse Oximeter Pulse Oximetry (%) 95 Oxygen Delivery Method Room Air Intake Visit Reasons: CKD- Conf Element Setter Required: Yes Element Setter Services: Element Setter Offered & Declined (Element Setter services refused. ) Accompanied by: Daughter Allergies No Known Allergies Allergy (Verified 05/11/24 14:15) HPI Comments Details: I had the privilege of seeing Rio in follow-up of his chronic kidney disease and hypertension. His history of CVA. He does not have any new neurological symptoms or deficits. He is compliant with his medications. He does not have any orthostatic symptoms. He is ambulating with a walker at home. He denies chest pain, shortness of breath, nausea vomiting, diarrhea, urinary symptoms or pedal edema. He avoids nonsteroidal anti-inflammatory medication and maintain good hydration. He has not had any blood work done for some time. He did not have any specific new complaints at the time of this office visit [facility] Medical History (Updated 02/05/24 @ 15:21 by Amaury Leon MD) Rib pain on left side Status post fall Rash of groin Blister of foot, right Atherosclerotic cardiovascular disease Colon cancer screening Coronary artery disease Umbilical hernia Right inguinal hernia History of [place] (myocardial infarction) CKD (chronic kidney disease) stage 4, GFR 15-29 ml/min Thrombocytopenia Vitamin D deficiency History of CVA (cerebrovascular accident) Hypertension Hypercholesterolemia Type 2 diabetes mellitus with hyperglycemia Surgical History No pertinent past surgical history Family History Father Heart disease Mother No problems noted. Social History Housing: House Alcohol intake: former Patient Tobacco Use Status: Never used Tobacco e-Cigarette/Vaping Use: Never Used Second Hand Smoke Exposure: No Advance Directives Date on File: 04/20/22 service: No Current occupational status: retired Cognitive needs: Yes (wheel chair ) Hearing needs: No Vision needs: No Review of Systems Const All systems reviewed & are unremarkable except as noted in HPI and below Physical Exam Vital Signs: Last Vital Signs Pulse 59 05/11/24 14:13 BP 114/54 L 05/11/24 14:13 Pulse Ox 95 05/11/24 14:13 Oxygen Delivery Method Room Air 05/11/24 14:13 Const General: comfortable and no acute distress Orientation/consciousness: patient oriented x3 HEENT Head: Yes normocephalic Mouth: Normal oral and palatal mucosa present Eyes EOM: EOMs intact bilaterally Neck Neck: Yes supple Resp Auscultation: clear to auscultation bilaterally Cardio Jugular venous distension: no JVD Rate: regular rate GI Palpation (GI): Soft to palpation Auscultation: normal bowel sounds General: Yes no CVA tenderness Back/Spine/Pelvis Back: no CVA tenderness Skin General skin exam: no rashes or lesions noted Neuro General: patient oriented x3 Extrem General: Yes no pedal edema Results Reviewed Nephrology Results: Hgb 11.9 g/dl (14.0-18.0) L 02/01/24 WBC 8.8 X10*3/uL (4.8-10.8) 02/01/24 Plt Count 144 X10*3/uL (160-400) L 02/01/24 Sodium 140 mmol/L (135-145) 02/01/24 Potassium 5.0 mmol/L (3.3-5.1) 02/01/24 Chloride 106 mmol/L (96-108) 02/01/24 Carbon Dioxide 26 mmol/L (22-29) 02/01/24 BUN 31 mg/dL (9-16) H 02/01/24 Creatinine 1.96 mg/dL (0.5-1.4) H 02/01/24 Calcium 9.9 mg/dL (8.4-10.2) 02/01/24 Phosphorus 2.7 mg/dL (2.7-4.5) 02/01/24 PTH Intact 221.9 pg/mL (8.7-77.1) H 02/01/24 Assessment & Plan Assessment & Plan (1) Secondary hyperparathyroidism (of renal origin): Code(s): N25.81 - Secondary hyperparathyroidism of renal origin Category: Medical (2) Anemia in chronic kidney disease (CKD): Code(s): N18.9 - Chronic kidney disease, unspecified; D63.1 - Anemia in chronic kidney disease Category: Medical Qualifiers: Chronic kidney disease stage: stage 4 (severe) Qualified Code(s): N18.4 - Chronic kidney disease, stage 4 (severe); D63.1 - Anemia in chronic kidney disease (3) CKD (chronic kidney disease) stage 4, GFR 15-29 ml/min: Code(s): N18.4 - Chronic kidney disease, stage 4 (severe) Category: Medical (4) Hypertension: Code(s): I10 - Essential (primary) hypertension Category: Medical Qualifiers: Hypertension type: essential hypertension Qualified Code(s): I10 - Essential (primary) hypertension Yamileth Pate has stage 4 chronic kidney disease due to vascular disease . He has proteinuria. His blood pressure is currently well controlled on current medication regimen. He has history of CVA but has not had any new deficits. He is on PURNIMA-inhibitor. He has not had any blood work recently. He is on calcitriol 0.25 mcg 5 times a week. His blood pressure is at goal. He is maintaining good hydration and should avoid nonsteroidal anti-inflammatories. He is on aspirin. I did not make any other medication changes today. Blood work ordered. Orders: Orders Parathyroid Hormone Intact Today D63.1 - Anemia in chronic kidney disease, I10 - Essential (primary) hypertension, N18.4 - Chronic kidney disease, stage 4 (severe), N25.81 - Secondary hyperparathyroidism of renal origin Blood Urea Nitrogen Today D63.1 - Anemia in chronic kidney disease, I10 - Essential (primary) hypertension, N18.4 - Chronic kidney disease, stage 4 (severe), N25.81 - Secondary hyperparathyroidism of renal origin Creatinine 4 Months N18.4 - Chronic kidney disease, stage 4 (severe) Blood Urea Nitrogen 4 Months N18.4 - Chronic kidney disease, stage 4 (severe) Phosphorus 4 Months N18.4 - Chronic kidney disease, stage 4 (severe) Vitamin D 25-OH Total Today D63.1 - Anemia in chronic kidney disease, I10 - Essential (primary) hypertension, N18.4 - Chronic kidney disease, stage 4 (severe), N25.81 - Secondary hyperparathyroidism of renal origin Phosphorus Today D63.1 - Anemia in chronic kidney disease, I10 - Essential (primary) hypertension, N18.4 - Chronic kidney disease, stage 4 (severe), N25.81 - Secondary hyperparathyroidism of renal origin Calcium Today D63.1 - Anemia in chronic kidney disease, I10 - Essential (primary) hypertension, N18.4 - Chronic kidney disease, stage 4 (severe), N25.81 - Secondary hyperparathyroidism of renal origin Creatinine Today D63.1 - Anemia in chronic kidney disease, I10 - Essential (primary) hypertension, N18.4 - Chronic kidney disease, stage 4 (severe), N25.81 - Secondary hyperparathyroidism of renal origin Electrolytes Today D63.1 - Anemia in chronic kidney disease, I10 - Essential (primary) hypertension, N18.4 - Chronic kidney disease, stage 4 (severe), N25.81 - Secondary hyperparathyroidism of renal origin Electrolytes 4 Months N18.4 - Chronic kidney disease, stage 4 (severe) Calcium 4 Months N18.4 - Chronic kidney disease, stage 4 (severe) Coding Level of Care Code Est Pt Level 4 (80469) Diagnoses Secondary hyperparathyroidism (of renal origin) N25.81 Anemia in stage 4 chronic kidney disease N18.4; D63.1 Chronic kidney disease stage: stage 4 (severe) CKD (chronic kidney disease) stage 4, GFR 15-29 ml/min N18.4 Essential hypertension I10 Hypertension type: essential hypertension
[2024-05-11 14:13] VITALS: BP 114/54; PULSE 59; O2SAT 95
== END 2024-05-11 14:35 | disposition home or self-care (01) ==
PROVIDERS: PCP Internal Medicine; Visit Provider Internal Medicine Nephrology
DX: I12.9 Hypertensive chronic kidney disease with stage 1 through stage 4 chronic kidney disease, or unspecified chronic kidney disease (principal); N18.4 Chronic kidney disease, stage 4 (severe); D63.1 Anemia in chronic kidney disease; N25.81 Secondary hyperparathyroidism of renal origin
CPT/HCPCS: 99214

== ENCOUNTER → 2024-05-11 14:02 | Outpatient (BNVA) | payer OTHER, SELFPAY | PROVIDERS: PCP Internal Medicine; Visit Provider Internal Medicine Nephrology | DX: I12.9 Hypertensive chronic kidney disease with stage 1 through stage 4 chronic kidney disease, or unspecified chronic kidney disease (principal); N18.4 Chronic kidney disease, stage 4 (severe); D63.1 Anemia in chronic kidney disease; N25.81 Secondary hyperparathyroidism of renal origin; Z86.73 Personal history of transient ischemic attack (TIA), and cerebral infarction without residual deficits | CPT/HCPCS: 99212 ==

== ENCOUNTER 2024-05-13 14:03 | Outpatient (AMB) | payer OTHER, SELFPAY ==
[2024-05-13 14:16] VITALS: BP 108/62; PULSE 73; O2SAT 100; BMI 29.4
--- NOTE | 2024-05-13 14:16 | A.OFFPC_ITS ---
Vital Signs 05/13/24 14:16 Height 5 ft 2 in Weight 160 lb 14.999 oz BMI 29.4 BP 108/62 Blood Pressure Location Lt brachial Position Sitting Pulse 73 Pulse Source Pulse Oximeter Pulse Oximetry (%) 100 Oxygen Delivery Method Room Air Intake Visit Reasons: DM, cholesterol Intake Note: Patient is here to follow up on DM, cholesterol . Hostess Party Sales Representative Required: Yes Hostess Party Sales Representative Language: Croatian Allergies No Known Allergies Allergy (Verified 05/11/24 14:15) Medication List - Last Reconciled 05/13/24 by Brigida Aburto PA-C [adult incontinence wipes As directed] [adult pull ups As directed] [AFO prosthetic As directed] amlodipine 10 mg PO DAILY 90 days aspirin (Adult Low Dose Aspirin) 81 mg PO DAILY blood pressure monitor (Blood Pressure Kit) As directed blood sugar diagnostic (FreeStyle Lite Strips) As directed check the BS QD calcitriol 0.25 mcg PO 5XW 30 days clotrimazole 1% 1 appl topical BID 4 weeks cyanocobalamin (vitamin B-12) 1,000 mcg PO DAILY disposable gloves As directed fluconazole 2 tabs first day then 1 tab QD x 7 days orally daily; folic acid 1 mg PO DAILY furosemide 20 mg PO DAILY 90 days lidocaine 4% (Aspercreme (lidocaine)) 1 patch topical DAILY PRN lisinopril 2.5 mg PO DAILY 90 days miconazole nitrate 2% (Zeasorb AF) 1 appl topical BID rosuvastatin 10 mg PO BEDTIME walker As directed [washable bedpads As directed] Tobacco use date assessed: 12/13/23 Fall risk assessment: No Falls in past year Last assessed Fall Risk: 05/13/24 Dental Screening Dental Screen Date: 12/13/23 HPI DM, cholesterol HPI Details 74-year-old male with past medical histo ry of diabetes mellitus, hyp ercholesterolemia, hypertension, chronic kidney disease, history of CVA with left-sided weakness, coronary artery disease last seen by Dr. Mckeon december 2023 coming in for follow up. And review of the notes, patient was [place] [facility] [place]/11/2024 no medication adjustments were made and patient's blood pressure was considered stable. Patient states he is feeling generally well and has no acute concerns today. Does mentioned he does have a history of a right inguinal hernia that has been bothering him more recently lately. He has been having intermittent pain without nausea or vomiting and without redness around the hernia. He has ability to pass gas and stool and no other concerns. [facility] Medical History (Updated 02/05/24 @ 15:21 by Amaury Leon MD) Rib pain on left side Status post fall Rash of groin Blister of foot, right Atherosclerotic cardiovascular disease Colon cancer screening Coronary artery disease Umbilical hernia Right inguinal hernia History of CT (myocardial infarction) CKD (chronic kidney disease) stage 4, GFR 15-29 ml/min Thrombocytopenia Vitamin D deficiency History of CVA (cerebrovascular accident) Hypertension Hypercholesterolemia Type 2 diabetes mellitus with hyperglycemia Surgical History No pertinent past surgical history Family History Father Heart disease Mother No problems noted. Social History Housing: House Alcohol intake: former Patient Tobacco Use Status: Never used Tobacco e-Cigarette/Vaping Use: Never Used Second Hand Smoke Exposure: No Advance Directives Date on File: 04/20/22 service: No Current occupational status: retired Cognitive needs: Yes (wheel chair ) Hearing needs: No Vision needs: No Questionnaire Thrive Questionnaire Date Thrive assessed: 12/13/23 Are you currently unemployed and looking for a job?: I choose not to answer this question AUDIT C Alcohol Use Questionnaire (AUDIT-C) 1. How often do you have a drink containing alcohol?: Never 3. How often do you have six or more drinks on one occasion?: Never Total Score: 0 Score Reviewed/Action Taken: No ROSEMARY-7 AMB Questionnaire ROSEMARY-7 Date ROSEMARY - 7 assessed: 12/13/23 Source: Developed by Drs. Anoop Hartmann, Aubrie Eli, Corbin Shukla and colleagues, with an educational dalia from [employer] Review of Systems Const Denies body aches and Denies fever(s) Eyes Reports no additional complaints ENT Reports no additional complaints Card Denies chest pain, Denies leg edema and Denies dyspnea Resp Denies dyspnea GI Details: Right inguinal hernia pain Reports no additional complaints Musc Reports no additional complaints Skin/Breast Reports system reviewed and no additional complaints, except as documented Physical exam (Primary Care) Vital Signs: Last Vital Signs Pulse 73 05/13/24 14:16 BP 108/62 05/13/24 14:16 Pulse Ox 100 05/13/24 14:16 Oxygen Delivery Method Room Air 05/13/24 14:16 BMI result Body Mass Index 29.4 Tobacco/Smoking Status: Tobacco use Status Tobacco use date assessed 12/13/23 05/13/24 14:23 Patient Tobacco Use Status Never used Tobacco 05/13/24 14:23 e-Cigarette/Vaping Use Never Used 05/13/24 14:23 Thrive Assessment: Date of Thrive Assessment Date Thrive assessed 12/13/23 05/13/24 14:23 Const General: cooperative, healthy appearing, comfortable and no acute distress Orientation/consciousness: patient oriented x3 HENMT Head: Yes normocephalic Ears: hearing grossly normal bilaterally General nose exam: Normal external nose present Eyes General: appearance normal, both eyes and all related structures Conjunctivae: conjunctivae normal Neck Neck: Yes full ROM and Yes no lymphadenopathy Resp Effort & Inspection: normal respiratory effort Auscultation: clear to auscultation bilaterally, no crackles, no rales, no rhonchi and no wheezes Cardio Rate: regular rate Rhythm: regular rhythm Skin General skin exam: no rashes or lesions noted Neuro General: patient oriented x3 Gait exam (Neuro): Normal gait present Extrem General: Yes normal to inspection, Yes full ROM and No edema Psych Affect: normal affect Attitude: cooperative Insight: Good insight present (Psych) Judgement: Good judgement present (Psych) Results AMB Hemoglobin A1c AMB Hemoglobin A1c 6.0 % Last Edit by GEORGINA Orlando on 05/13/24 14:27 Results Reviewed Results Reviewed: Laboratory Last Values Hgb A1c (Clinic) 6.0 % (4.0-6.0) 05/13/24 12:40 Coding Level of Care Code Est Pt Level 4 (48688) Diagnoses Hypercholesterolemia E78.00 Type 2 diabetes mellitus with hyperglycemia, without long-term current use of insulin E11.65 Diabetes mellitus watermelon harvesting supervisor insulin use: without fdc use CKD (chronic kidney disease) stage 4, GFR 15-29 ml/min N18.4 Essential hypertension I10 Hypertension type: essential hypertension Right inguinal hernia K40.90 Assessment & Plan Assessment & Plan (1) Hypercholesterolemia: Code(s): E78.00 - Pure hypercholesterolemia, unspecified Category: Medical Plan: Cholesterol at goal on last labs. Avoid foods that are high in cholesterol such as red meat, fried foods, eggs and baked goods. Triglyceride goal of less than 150 and LDL goal of less than 100. Continue on rosuvastatin 10 mg. (2) Type 2 diabetes mellitus with hyperglycemia: Code(s): E11.65 - Type 2 diabetes mellitus with hyperglycemia Category: Medical Qualifiers: Diabetes mellitus watermelon harvesting supervisor insulin use: without watermelon harvesting supervisor use Qualified Code(s): E11.65 - Type 2 diabetes mellitus with hyperglycemia Plan: Decrease the amount of carbohydrates such as pasta, bread, rice, and potatoes and limit the amount of sweets. Although fruits are generally healthy they should be eaten in moderation as they are still high in sugar. Hemoglobin A1c goal of less than 7%. A1c at goal today 6.0% . (3) CKD (chronic kidney disease) stage 4, GFR 15-29 ml/min: Code(s): N18.4 - Chronic kidney disease, stage 4 (severe) Category: Medical Plan: Continue to follow with Nephrology and avoid nephrotoxic medications. (4) Hypertension: Code(s): I10 - Essential (primary) hypertension Category: Medical Qualifiers: Hypertension type: essential hypertension Qualified Code(s): I10 - Essential (primary) hypertension Plan: Blood pressure at goal today 108/62 continue on current med regimen. (5) Right inguinal hernia: Code(s): K40.90 - Unilateral inguinal hernia, without obstruction or gangrene, not specified as recurrent Category: Medical Plan: Patient complaining of intermittent tenderness with right inguinal hernia without overlying skin changes or inability to pass gas or stool. Advised patient to follow up with General surgery for further management options. Plan This note was constructed using voice recognition software. While every effort has been made to ensure accuracy and signal tower director, still areas may have been included sometimes these areas may affect the content or meeting of the given symptoms. Total time spent caring for the patient today was 30 minutes. This includes time spent before the visit reviewing the chart, time spent during the visit, and time spent after the visit and documentation. Orders: Orders AMB Hemoglobin A1c Today E11.65 - Type 2 diabetes mellitus with hyperglycemia
== END 2024-05-13 14:49 | disposition home or self-care (01) ==
PROVIDERS: PCP Internal Medicine
DX: I12.9 Hypertensive chronic kidney disease with stage 1 through stage 4 chronic kidney disease, or unspecified chronic kidney disease (principal); E11.65 Type 2 diabetes mellitus with hyperglycemia; N18.4 Chronic kidney disease, stage 4 (severe); E78.00 Pure hypercholesterolemia, unspecified; K40.90 Unilateral inguinal hernia, without obstruction or gangrene, not specified as recurrent

== ENCOUNTER → 2024-05-13 14:03 | Outpatient (BNVA) | payer OTHER, SELFPAY | PROVIDERS: PCP Internal Medicine | DX: E11.65 Type 2 diabetes mellitus with hyperglycemia (principal); E78.00 Pure hypercholesterolemia, unspecified; I12.9 Hypertensive chronic kidney disease with stage 1 through stage 4 chronic kidney disease, or unspecified chronic kidney disease; E11.22 Type 2 diabetes mellitus with diabetic chronic kidney disease; N18.4 Chronic kidney disease, stage 4 (severe); K40.90 Unilateral inguinal hernia, without obstruction or gangrene, not specified as recurrent | CPT/HCPCS: 83036; 99212 ==

== ENCOUNTER 2024-05-16 09:43 | Outpatient (REF) | payer OTHER, SELFPAY ==
[2024-05-16 12:08] LABS: Anion Gap 15 (12-20); Blood Urea Nitrogen 33 mg/dL (9-16); Calcium 10.4 mg/dL (8.4-10.2); Carbon Dioxide 27 mmol/L (22-29); Chloride 103 mmol/L (96-108); Estimated Glomerular Filt Rate 28; Phosphorus 3.1 mg/dL (2.7-4.5); Potassium 4.5 mmol/L (3.3-5.1); Sodium 140 mmol/L (135-145)
[2024-05-16 12:14] LABS: Vitamin D 25-OH Total 19.6 ng/mL (>30)
[2024-05-16 13:19] LABS: Parathyroid Hormone Intact 177.8 pg/mL (8.7-77.1)
== END 2024-05-16 09:44 | disposition home or self-care (01) ==
LOC: HO.LAB 09:43
PROVIDERS: PCP Internal Medicine; Visit Provider Internal Medicine Nephrology
DX: I12.9 Hypertensive chronic kidney disease with stage 1 through stage 4 chronic kidney disease, or unspecified chronic kidney disease (principal); D63.1 Anemia in chronic kidney disease; N25.81 Secondary hyperparathyroidism of renal origin; N18.4 Chronic kidney disease, stage 4 (severe)
CPT/HCPCS: 36415; 80051; 82306; 82310; 82565; 83970; 84100; 84520

== ENCOUNTER 2024-08-14 14:12 | Outpatient (AMB) | payer OTHER, SELFPAY ==
--- NOTE | 2024-08-14 14:17 | HO.NEPHOV_ITS ---
Vital Signs 08/14/24 14:19 Height 5 ft 2 in BMI Reason not done Patient refused/unable BP 104/60 Blood Pressure Location Rt brachial Position Sitting Intake Visit Reasons: Anemia in chronic kidney disease-Conf Logistics Solution Manager Required: Yes Logistics Solution Manager Language: Server Service Assistant Services: Logistics Solution Manager Offered & Declined ([facility] [place] administrative office specialist services refused) Accompanied by: Daughter Allergies No Known Allergies Allergy (Verified 08/14/24 14:18) HPI Comments Details: Rio was seen in follow-up of his chronic kidney disease and hypertension. He was accompanied by his daughter. His history of CVA. He does not have any new neurological symptoms or deficits. He is compliant with his medications. He does not have any orthostatic symptoms. He is ambulating with a walker at home. He denies chest pain, shortness of breath, nausea vomiting, diarrhea, urinary symptoms or pedal edema. He avoids nonsteroidal anti-inflammatory medication and maintain good hydration. He did not have any specific new complaints at the time of this office visit [facility] Medical History (Updated 02/05/24 @ 15:21 by Amaury Leon MD) Rib pain on left side Status post fall Rash of groin Blister of foot, right Atherosclerotic cardiovascular disease Colon cancer screening Coronary artery disease Umbilical hernia Right inguinal hernia History of [place] (myocardial infarction) CKD (chronic kidney disease) stage 4, GFR 15-29 ml/min Thrombocytopenia Vitamin D deficiency History of CVA (cerebrovascular accident) Hypertension Hypercholesterolemia Type 2 diabetes mellitus with hyperglycemia Surgical History No pertinent past surgical history Family History Father Heart disease Mother No problems noted. Social History Housing: House Alcohol intake: former Patient Tobacco Use Status: Never used Tobacco e-Cigarette/Vaping Use: Never Used Second Hand Smoke Exposure: No Advance Directives Date on File: 04/20/22 service: No Current occupational status: retired Cognitive needs: Yes (wheel chair ) Hearing needs: No Vision needs: No Review of Systems Const All systems reviewed & are unremarkable except as noted in HPI and below Physical Exam Vital Signs: Last Vital Signs BP 104/60 08/14/24 14:19 Const General: comfortable and no acute distress Orientation/consciousness: patient oriented x3 HEENT Head: Yes normocephalic Mouth: Normal oral and palatal mucosa present Eyes EOM: EOMs intact bilaterally Neck Neck: Yes supple Resp Auscultation: clear to auscultation bilaterally Cardio Jugular venous distension: no JVD Rate: regular rate GI Palpation (GI): Soft to palpation Auscultation: normal bowel sounds General: Yes no CVA tenderness Back/Spine/Pelvis Back: no CVA tenderness Skin General skin exam: no rashes or lesions noted Neuro General: patient oriented x3 and moves all extremities Extrem General: Yes no pedal edema Results Reviewed Nephrology Results: Hgb 11.9 g/dl (14.0-18.0) L 02/01/24 WBC 8.8 X10*3/uL (4.8-10.8) 02/01/24 Plt Count 144 X10*3/uL (160-400) L 02/01/24 Sodium 140 mmol/L (135-145) 05/16/24 Potassium 4.5 mmol/L (3.3-5.1) 05/16/24 Chloride 103 mmol/L (96-108) 05/16/24 Carbon Dioxide 27 mmol/L (22-29) 05/16/24 BUN 33 mg/dL (9-16) H 05/16/24 Creatinine 2.30 mg/dL (0.5-1.4) H 05/16/24 Calcium 10.4 mg/dL (8.4-10.2) H 05/16/24 Phosphorus 3.1 mg/dL (2.7-4.5) 05/16/24 PTH Intact 177.8 pg/mL (8.7-77.1) H 05/16/24 Assessment & Plan Assessment & Plan (1) CKD (chronic kidney disease) stage 4, GFR 15-29 ml/min: Code(s): N18.4 - Chronic kidney disease, stage 4 (severe) Category: Medical (2) Anemia in chronic kidney disease (CKD): Code(s): N18.9 - Chronic kidney disease, unspecified; D63.1 - Anemia in chronic kidney disease Category: Medical Qualifiers: Chronic kidney disease stage: stage 4 (severe) Qualified Code(s): N18.4 - Chronic kidney disease, stage 4 (severe); D63.1 - Anemia in chronic kidney disease (3) Secondary hyperparathyroidism (of renal origin): Code(s): N25.81 - Secondary hyperparathyroidism of renal origin Category: Medical Plan Rio has stage 4 chronic kidney disease due to vascular disease . He has proteinuria. His blood pressure is currently well controlled on current medication regimen. He has history of CVA but has not had any new deficits. He is on PURNIMA-inhibitor.He is on calcitriol 0.25 mcg 5 times a week. His blood pressure is at goal. He is maintaining good hydration and should avoid nonsteroidal anti-inflammatories. He is on aspirin. I did not make any other medication changes today. Blood work ordered Orders: Orders Blood Urea Nitrogen 3 Months D63.1 - Anemia in chronic kidney disease, N18.4 - Chronic kidney disease, stage 4 (severe), N25.81 - Secondary hyperparathyroidism of renal origin Electrolytes 3 Months D63.1 - Anemia in chronic kidney disease, N18.4 - Chronic kidney disease, stage 4 (severe), N25.81 - Secondary hyperparathyroidism of renal origin Parathyroid Hormone Intact 3 Months D63.1 - Anemia in chronic kidney disease, N18.4 - Chronic kidney disease, stage 4 (severe), N25.81 - Secondary hyperparathyroidism of renal origin Creatinine 3 Months D63.1 - Anemia in chronic kidney disease, N18.4 - Chronic kidney disease, stage 4 (severe), N25.81 - Secondary hyperparathyroidism of renal origin Calcium 3 Months D63.1 - Anemia in chronic kidney disease, N18.4 - Chronic kidney disease, stage 4 (severe), N25.81 - Secondary hyperparathyroidism of renal origin Phosphorus 3 Months D63.1 - Anemia in chronic kidney disease, N18.4 - Chronic k idney disease, stage 4 (severe), N25.81 - Secondary hyperparathyroidism of renal origin Complete Blood Count Auto Diff 3 Months D63.1 - Anemia in chronic kidney disease, N18.4 - Chronic kidney disease, stage 4 (severe) Coding Level of Care Code Est Pt Level 4 (21335) Diagnoses CKD (chronic kidney disease) stage 4, GFR 15-29 ml/min N18.4 Anemia in stage 4 chronic kidney disease N18.4; D63.1 Chronic kidney disease stage: stage 4 (severe) Secondary hyperparathyroidism (of renal origin) N25.81
[2024-08-14 14:19] VITALS: BP 104/60
== END 2024-08-14 14:39 | disposition home or self-care (01) ==
PROVIDERS: PCP Internal Medicine; Visit Provider Internal Medicine Nephrology
DX: N18.4 Chronic kidney disease, stage 4 (severe) (principal); D63.1 Anemia in chronic kidney disease; N25.81 Secondary hyperparathyroidism of renal origin
CPT/HCPCS: 99214

== ENCOUNTER → 2024-08-14 14:12 | Outpatient (BNVA) | payer OTHER, SELFPAY | PROVIDERS: PCP Internal Medicine; Visit Provider Internal Medicine Nephrology | DX: N18.4 Chronic kidney disease, stage 4 (severe) (principal); D63.1 Anemia in chronic kidney disease; N25.81 Secondary hyperparathyroidism of renal origin | CPT/HCPCS: 99212 ==

== ENCOUNTER 2024-09-03 14:56 | Outpatient (AMB) | payer OTHER, SELFPAY ==
--- NOTE | 2024-09-03 15:14 | MHC.PC.OV ---
Vital Signs 09/03/24 15:16 Height 5 ft 2 in BMI Reason not done Patient refused/unable BP 112/60 Blood Pressure Location Lt brachial Position Sitting Temp 97.3 F Temp Source Skin Intake Visit Reasons: f/u HLD and DM w/ Dr Mckeon Intake Note: Patient is here to follow up on HLD, DM. Nurses' Association Counselor Required: Yes Nurses' Association Counselor Language: Admissions Counselor Name: Kalyan ([id number]) Information Interpreted: non-clinical & clinical Customer Support Executive: Present Accompanied by: Daughter Allergies No Known Allergies Allergy (Verified 09/03/24 15:15) Tobacco use date assessed: 09/03/24 Fall risk assessment: 1 Fall in past year Last assessed Fall Risk: 09/03/24 Dental Screening Dental Screen Date: 09/03/24 Did you have a dental visit in the last 12 months?: No Did you have a dental problem in the last 6 months where you did not have access to dental care?: No Was dental information given to patient?: No HPI f/u HLD and DM w/ Dr Mckeon HPI Details kalyan interpret cough, no fevers, no sore throat, at home- family flu and rsv, The patient is a 74-year-old male presenting with a cough and wheezing. The cough began approximately three days prior to the visit without associated fever or significant sputum production. The patient has not noticed any worsening factors, and no interventions have been attempted other than monitoring symptoms. The patient reports wheezing during respiration but denies any associated symptoms such as shortness of breath or chest pain. In terms of past medical history, the patient has been made aware of worsening renal function as indicated by recent laboratory results, communicated by his publications designer. The exact etiology remains under investigation, but medications to control hypertension and hyperlipidemia have been implemented, demonstrating compliance. The patient has yet to receive his annual influenza vaccination, which is typically provided through a program he participates in. [facility] Medical History (Updated 09/03/24 @ 15:47 by Umm Mckeon MD) Rib pain on left side Status post fall Rash of groin Blister of foot, right Atherosclerotic cardiovascular disease Colon cancer screening Coronary artery disease Umbilical hernia Right inguinal hernia History of CA (myocardial infarction) CKD (chronic kidney disease) stage 4, GFR 15-29 ml/min Thrombocytopenia Vitamin D deficiency History of CVA (cerebrovascular accident) Hypertension Hypercholesterolemia Type 2 diabetes mellitus with hyperglycemia Surgical History No pertinent past surgical history Family History Father Heart disease Mother No problems noted. Social History Housing: House Alcohol intake: former Patient Tobacco Use Status: Never used Tobacco e-Cigarette/Vaping Use: Never Used Second Hand Smoke Exposure: No Advance Directives Date on File: 04/20/22 service: No Current occupational status: retired Cognitive needs: Yes (wheel chair ) Hearing needs: No Vision needs: No Questionnaire PHQ-9 Over the last 2 weeks, how often have you been bothered by any of the following problems? 1. Little interest or pleasure in doing things: not at all 2. Feeling down, depressed, or hopeless: not at all 3. Trouble falling or staying asleep, or sleeping too much: not at all 4. Feeling tired or having little energy: not at all 5. Poor appetite or overeating: not at all 6. Feeling bad about yourself - or that you are a failure or have let yourself or your family down: not at all 7. Trouble concentrating on things, such as reading the newspaper or watching television: not at all 8. Moving or speaking so slowly that other people could have noticed. Or the opposite - being so fidgety or restless that you have been moving around a lot more than usual: not at all 9. Thoughts that you would be better off or of hurting yourself in some way: not at all Total score: 0 Depression Screening Interpretation: Negative Depression Screening Done: Yes Source: Developed by Drs. Anoop Hartmann, Aubrie Eli, Corbin Shukla and colleagues, with an educational dalia from [email or web address]. Thrive Questionnaire Date Thrive assessed: 09/03/24 I am a: Patient What is your living situation today?: I have a steady place to live Within the past 12 months, did the food you bought not last and you didn't have the money to get more?: Never true Within the past 12 months, did you worry whether your food would run out before you got money to buy more?: Never true Do you have trouble paying for medicines?: No Do you have trouble getting transportation to medical appointments?: No Do you have trouble paying your heating and electricity bill?: No Do you have trouble taking care of your child, family member or friend?: No Do you have trouble with day-to-day activities such as bathing, preparing meals, shopping, managing finances, etc.?: No Are you currently unemployed and looking for a job?: I choose not to answer this question Are you interested in more education?: No Please select the resources that you would like help with: None Currently or been in a relationship where the following occur: No concerns reported THRIVE Score: 0 AUDIT C Alcohol Use Questionnaire (AUDIT-C) 1. How often do you have a drink containing alcohol?: Never Total Score: 0 ROSEMARY-7 AMB Questionnaire ROSEMARY-7 Date ROSEMARY - 7 assessed: 09/03/24 Feeling nervous, anxious, or on edge: 0 = Not at all Not being able to stop or control worryin = Not at all Worrying too much about different things: 0 = Not at all Trouble relaxin = Not at all Being so restless that it is hard to sit still: 0 = Not at all Becoming easily annoyed or irritable: 0 = Not at all Feeling afraid as if something awful might happen: 0 = Not at all Total ROSEMARY-7 score (0-4 normal; 5-9 mild; 10-14 moderate; 15-21 severe): 0 Source: Developed by Drs. Anoop Hartmann, Aubrie Eli, Corbin Shukla and colleagues, with an educational dalia from [email or web address]. Physical exam (Primary Care) Vital Signs: Last Vital Signs Temp 97.3 F 09/03/24 15:16 BP 112/60 09/03/24 15:16 Tobacco/Smoking Status: Tobacco use Status Tobacco use date assessed 09/03/24 09/03/24 15:25 Patient Tobacco Use Status Never used Tobacco 09/03/24 15:25 e-Cigarette/Vaping Use Never Used 09/03/24 15:25 PHQ-9: PHQ-9 Score PHQ-9: Total score 0 09/03/24 15:40 Depression Screening Interpretation: Negative Thrive Assessment: Date of Thrive Assessment Date Thrive assessed 09/03/24 09/03/24 15:25 Currently or been in a relationship where the following occur: No concerns reported Const General: alert; No acute distress Eyes Conjunctivae: conjunctivae normal Resp Auscultation: clear to auscultation bilaterally Cardio Rate: regular rate Rhythm: regular rhythm GI Inspection: Yes normal to inspection Results AMB Hemoglobin A1c AMB Hemoglobin A1c 6.2 % Last Edit by GEORGINA Doss on 09/03/24 15:34 Results Reviewed Results Reviewed: Laboratory Last Values Hgb A1c (Clinic) 6.2 % (4.0-6.0) H 09/03/24 15:12 Coding Level of Care Code Est Pt Level 4 (17854) Complex EM visit Add On G2211 Diagnoses Type 2 diabetes mellitus with hyperglycemia, without long-term current use of insulin E11.65 Diabetes mellitus long-term insulin use: without long-term use Hypercholesterolemia E78.00 Essential hypertension I10 Hypertension type: essential hypertension CKD (chronic kidney disease) stage 4, GFR 15-29 ml/min N18.4 Atherosclerotic cardiovascular disease I25.10 Anemia in stage 4 chronic kidney disease N18.4; D63.1 Chronic kidney disease stage: stage 4 (severe) Cough R05.9 Assessment & Plan Assessment & Plan (1) Type 2 diabetes mellitus with hyperglycemia: Code(s): E11.65 - Type 2 diabetes mellitus with hyperglycemia Category: Medical Qualifiers: Diabetes mellitus long-term insulin use: without long-term use Qualified Code(s): E11.65 - Type 2 diabetes mellitus with hyperglycemia (2) Hypercholesterolemia: Code(s): E78.00 - Pure hypercholesterolemia, unspecified Category: Medical (3) Hypertension: Code(s): I10 - Essential (primary) hypertension Category: Medical Qualifiers: Hypertension type: essential hypertension Qualified Code(s): I10 - Essential (primary) hypertension (4) CKD (chronic kidney disease) stage 4, GFR 15-29 ml/min: Code(s): N18.4 - Chronic kidney disease, stage 4 (severe) Category: Medical (5) Atherosclerotic cardiovascular disease: Code(s): I25.10 - Atherosclerotic heart disease of [place] coronary artery without angina pectoris Category: Medical (6) Anemia in chronic kidney disease (CKD): Code(s): N18.9 - Chronic kidney disease, unspecified; D63.1 - Anemia in chronic kidney disease Category: Medical Qualifiers: Chronic kidney disease stage: stage 4 (severe) Qualified Code(s): N18.4 - Chronic kidney disease, stage 4 (severe); D63.1 - Anemia in chronic kidney disease (7) Cough: Code(s): R05.9 - Cough, unspecified Category: Medical Plan - Obtain testing to assess for influenza and RSV due to symptoms of cough and wheezing. - Initiate symptomatic treatment for cough, such as [id number]-eqahrus cough medication, barring contraindications. - Monitor renal function closely with planned follow-up laboratory evaluations per nephrology guidance. - Provide prescription for a bedside table as requested, pending patient confirmation of appropriate medical equipment terminology. - Advise the patient on seasonal influenza vaccination, considering the start of flu season. Confirm administration status through current program affiliation. - Remain vigilant for signs of respiratory distress in case symptoms escalate or change. - Reinforce management of chronic conditions with continued adherence to prescribed therapeutic regimens for blood pressure and cholesterol reduction. Orders: Orders SARS-CoV2/FLU/RSV Today R05.9 - Cough, unspecified Lipid Panel 3 Months E11.65 - Type 2 diabetes mellitus with hyperglycemia, E78.00 - Pure hypercholesterolemia, unspecified Free T4 (Free Thyroxine) 3 Months E11.65 - Type 2 diabetes mellitus with hyperglycemia AMB Hemoglobin A1c Today E11.65 - Type 2 diabetes mellitus with hyperglycemia Complete Blood Count Auto Diff 3 Months E11.65 - Type 2 diabetes mellitus with hyperglycemia Comprehensive Met. Panel 3 Months E11.65 - Type 2 diabetes mellitus with hyperglycemia Hemoglobin A1c 3 Months E11.65 - Type 2 diabetes mellitus with hyperglycemia Thyroid Stimulating Hormone 3 Months E11.65 - Type 2 diabetes mellitus with hyperglycemia Vitamin B12 and Folate 3 Months E11.65 - Type 2 diabetes mellitus with hyperglycemia Medications: New benzonatate 200 mg PO BID-TID PRN 20 caps 0RF cough R05.9 - Cough, unspecified
[2024-09-03 15:16] VITALS: BP 112/60; TEMP 36.3
== END 2024-09-03 15:55 | disposition home or self-care (01) ==
PROVIDERS: PCP Internal Medicine; Visit Provider Internal Medicine
DX: E11.65 Type 2 diabetes mellitus with hyperglycemia (principal); E78.00 Pure hypercholesterolemia, unspecified; I12.9 Hypertensive chronic kidney disease with stage 1 through stage 4 chronic kidney disease, or unspecified chronic kidney disease; N18.4 Chronic kidney disease, stage 4 (severe); I25.10 Atherosclerotic heart disease of native coronary artery without angina pectoris; D63.1 Anemia in chronic kidney disease; R05.9 Cough, unspecified

== ENCOUNTER 2024-09-03 14:56 | Outpatient (REF) | payer OTHER, SELFPAY ==
[2024-09-03 16:53] LABS: Influenza A PCR POSITIVE (Negative); Influenza B PCR NEGATIVE (Negative); Resp Syncy Virus RNA Qual PCR NEGATIVE (Negative); SARS COV2 PCR INHOUSE NEGATIVE (Negative)
== END 2024-09-03 14:57 | disposition home or self-care (01) ==
LOC: HO.LAB 14:56
PROVIDERS: PCP Internal Medicine; Visit Provider Internal Medicine
DX: E11.65 Type 2 diabetes mellitus with hyperglycemia (principal); E11.22 Type 2 diabetes mellitus with diabetic chronic kidney disease; I12.9 Hypertensive chronic kidney disease with stage 1 through stage 4 chronic kidney disease, or unspecified chronic kidney disease; N18.4 Chronic kidney disease, stage 4 (severe); D63.1 Anemia in chronic kidney disease; E78.00 Pure hypercholesterolemia, unspecified; I25.10 Atherosclerotic heart disease of native coronary artery without angina pectoris; R05.9 Cough, unspecified
CPT/HCPCS: 0241U; 83036; 99212

== ENCOUNTER 2024-09-07 03:48 | Emergency (ER) | payer OTHER, SELFPAY ==
[2024-09-07] VITALS (7 sets, daily range): BP systolic 105–139; BP diastolic 33–82; PULSE 60–66; RESP 12–20; TEMP 36.6–36.8; O2SAT 97–100; BMI 30.2
--- NOTE | 2024-09-07 | ECG_ITS ---
Test Reason : fall Blood Pressure : */* mmHG Vent. Rate : 62 BPM Atrial Rate : 62 BPM P-R Int : 310 ms QRS Dur : 92 ms QT Int : 404 ms P-R-T Axes : 45 -1 79 degrees QTcB Int : 410 ms Sinus rhythm with 1st degree A-V block with Premature atrial complexes Nonspecific T wave abnormality Abnormal ECG When compared with ECG of 23-Aug-2023 17:11, No significant change was found Referred By: Generic ED Physician Electronically Signed By: MALISSA HOFFMAN
--- NOTE | ~2024-09-07 | XR_ITS ---
CLINICAL HISTORY: fall 1 view pelvis Comparison: None Findings: No acute fracture or dislocation. No significant degenerative changes. Soft tissues are unremarkable. There is a large right inguinal hernia containing bowel. There is a benign appearing sclerotic bone lesion in the proximal left femur. IMPRESSION: 1. No acute findings. 2. Large right inguinal hernia containing bowel. This document has been electronically signed by: River Bahena MD on 09/07/2024 05:48:31
--- NOTE | ~2024-09-07 | CT_ITS ---
CLINICAL HISTORY: fall CT head without contrast Comparison: CT/SR - CT HEAD/BRAIN WO IV CON - 11/07/23 17:40 EDT Findings: No intra-axial mass, midline shift, hydrocephalus, or acute hemorrhage. There is severe cortical atrophy. Low-attenuation changes are seen in the periventricular white matter most compatible with microvascular ischemia. Lacunar infarct left thalamus. There is no sinus or mastoid fluid. The orbits are unremarkable. No skull fracture. IMPRESSION: 1. No acute intracranial findings. Severe involutional changes. This document has been electronically signed by: River Bahena MD on 09/07/2024 05:51:30
--- NOTE | 2024-09-07 04:26 | ED.FALL ---
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 to go to bathroom and most of the time he falls today he fell 2 times first-time EMS came and lifted him up, 2nd time again he fell while going to the bathroom patient has says that while walking because of his left leg weakness he could not bear his weight and slumped down on his hips no head injury no direct fall no chest pain no loss of consciousness Related Data Home Medications ?Medication ?Instructions ?Recorded ?Confirmed aspirin 81 mg tablet,delayed 81 mg PO DAILY 11/15/20 05/13/24 release (Adult Low Dose Aspirin) Previous Rx's ?Medication ?Instructions ?Recorded walker #1 ea 11/15/20 lidocaine 4 % topical patch 1 patch topical DAILY PRN pain #15 05/22/22 (Aspercreme (lidocaine)) ea AFO prosthetic #1 ea 06/05/22 blood pressure monitor (Blood #1 ea 11/19/22 Pressure Kit) blood sugar diagnostic (FreeStyle #100 ea 02/13/23 Lite Strips) fluconazole 100 mg tablet See Rx Instructions PO DAILY #8 12/13/23 tabs furosemide 20 mg tablet 20 mg PO DAILY 90 days #90 tabs 12/24/23 miconazole nitrate 2 % topical 1 appl topical BID #85 grams 12/24/23 powder (Zeasorb AF) clotrimazole 1 % topical cream 1 appl topical BID 4 weeks #45 03/10/24 grams cyanocobalamin (vitamin B-12) 1,000 mcg PO DAILY #90 caps 03/25/24 1,000 mcg capsule amlodipine 10 mg tablet 10 mg PO DAILY 90 days #90 tabs 04/08/24 lisinopril 2.5 mg tablet 2.5 mg PO DAILY 90 days #90 tabs 04/08/24 rosuvastatin 10 mg tablet 10 mg PO BEDTIME #90 tabs 04/08/24 adult incontinence wipes #4 multiple units 05/13/24 adult pull ups #120 ea 05/13/24 disposable gloves #1,000 ea 05/13/24 washable bedpads #2 ea 05/13/24 calcitriol 0.25 mcg capsule 0.25 mcg PO 5XW 30 days #22 caps 07/15/24 folic acid 1 mg tablet 1 mg PO DAILY #90 tabs 07/16/24 benzonatate 200 mg capsule 200 mg PO BID-TID PRN cough #20 09/03/24 caps oseltamivir 75 mg capsule (Tamiflu) 75 mg PO BID 5 days #10 caps 09/03/24 Allergies Allergy/AdvReac Type Severity Reaction Status Date / Time No Known Allergies Allergy Verified 09/07/24 04:40 Review of Systems Review of Systems: Yes all other systems are reviewed and are negative PMFSH Past Medical History Medical History Rib pain on left side Status post fall Rash of groin Blister of foot, right Atherosclerotic cardiovascular disease Colon cancer screening Coronary artery disease Umbilical hernia Right inguinal hernia History of [place] (myocardial infarction) CKD (chronic kidney disease) stage 4, GFR 15-29 ml/min Thrombocytopenia Vitamin D deficiency History of CVA (cerebrovascular accident) Hypertension Hypercholesterolemia Type 2 diabetes mellitus with hyperglycemia Surgical History No pertinent past surgical history Family History Family History Father Heart disease Mother No problems noted. Social History Social History Housing: House Alcohol intake: former Patient Tobacco Use Status: Never used Tobacco e-Cigarette/Vaping Use: Never Used Second Hand Smoke Exposure: No Advance Directives: Yes Advance Directives on File: Yes Advance Directives Date on File: 04/20/22 service: No Current occupational status: retired Cognitive needs: Yes (wheel chair ) Hearing needs: No Vision needs: No Physical Exam Vital Signs: Vital Signs: Last Vital Signs Temp 98.3 F 09/07/24 04:32 Pulse 62 09/07/24 06:00 Resp 20 09/07/24 06:00 BP 115/39 L 09/07/24 06:00 Pulse Ox 97 09/07/24 06:00 O2 Del Method Room Air 09/07/24 06:00 BMI result Body Mass Index 30.2 Appearance: Alert. Oriented X3. No acute distress. Eyes: No pallor or icterus ENT: Pharynx normal. Oral Mucosa moist Neck: Normal inspection. Neck supple. No midline tenderness CVS: Normal heart rate and rhythm. Pulses normal. Respiratory: No respiratory distress. Equal air entry bilateral, no wheezing/rales/rhonchi Abdomen: Soft and nontender. Bowel sounds are present, no mass palpable, no CVA tenderness large inguinal nontender hernia Skin: Skin warm and dry. Normal skin color. Normal skin turgor. Extremities: No lower extremity edema. No calf tenderness Neuro: Oriented X 3. 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 09/07/24 04:33 09/07/24 04:33 Labs: Lab Results 09/07/24 Range/Units 04:33 WBC 6.9 (4.8-10.8) X10*3/uL RBC 3.65 L (4.60-5.80) X10*6/uL Hgb 11.0 L (14.0-18.0) g/dl Hct 32.7 L (42.0-52.0) % MCV 89.6 (80.0-98.0) fL MCH 30.1 (27.0-33.0) pg MCHC 33.6 (31.0-36.0) g/dl RDW 13.5 (11.0-16.0) % Plt Count 190 D (160-400) X10*3/uL MPV 10.2 (9.4-12.4) fL Absolute Nucleated RBC 0.000 (0.0-0.012) X10*3/uL Nucleated RBC % (auto) 0.0 (0.0-0.2) /100WBC Hold Blue Top SEE NOTE Sodium 138 (135-145) mmol/L Potassium 4.8 (3.3-5.1) mmol/L Chloride 107 (96-108) mmol/L Carbon Dioxide 22 (22-29) mmol/L Anion Gap 14 (12-20) BUN 39 H (9-16) mg/dL Creatinine 1.80 H (0.5-1.4) mg/dL Estim Creat Clear Calc 31.4 Estimated GFR 37 Random Glucose 110 (60-115) mg/dL Calcium 9.4 D (8.4-10.2) mg/dL Total Bilirubin 0.5 (0.0-1.0) mg/dL AST 20 (5-37) U/L ALT 12 (0-40) U/L Alkaline Phosphatase 54 (39-117) U/L Troponin I High Sens 9.3 (<3.5-35.0) ng/L Total Protein 7.7 (6.5-8.0) g/dL Albumin 4.1 (3.5-5.0) g/dL Independent Interpretation I performed an independent interpretation of an: EKG, Plain X-Ray and CT Scan Interpretation: Sinus rhythm with first-degree heart block heart rate of 62 beats per minute premature atrial complexes nonspecific T wave changes no acute ischemia Radiology Impression Discussion of test interpretation with radiology: I have reviewed the radiologist's reading. Radiologist Impression: [place] [address] CT Scan Report Signed Patient: Rio Rushing MR#: [id number] : 1950 Acct:[id number] Age/Sex: 74 / M ADM Date: 09/07/24 Loc: .ED Attending Dr: Ordering Physician: Vick Rodriguez MD Date of Service: 09/07/24 Procedure(s): CT head/brain wo IV con Accession Number(s): [id number] cc: Umm Mckeon MD; Vick Rodriguez MD~ Report Number: [id number]: Total DLP = 557.00 mGy-cm CLINICAL HISTORY: fall CT head without contrast Comparison: CT/SR - CT HEAD/BRAIN WO IV CON - 11/07/23 17:40 EDT Findings: No intra-axial mass, midline shift, hydrocephalus, or acute hemorrhage. There is severe cortical atrophy. Low-attenuation changes are seen in the periventricular white matter most compatible with microvascular ischemia. Lacunar infarct left thalamus. There is no sinus or mastoid fluid. The orbits are unremarkable. No skull fracture. IMPRESSION: 1. No acute intracranial findings. Severe involutional changes. This document has been electronically signed by: River Bahena MD on 09/07/2024 05:51:[address] [place] [address] [address] Scan Report Signed Patient: Rio Rushing MR#: [id number] : 1950 Acct:[id number] Age/Sex: 74 / M ADM Date: 09/07/24 Loc: HO.ED Attending Dr: Ordering Physician: Vick Rodriguez MD Date of Service: 09/07/24 Procedure(s): CT head/brain wo IV con Accession Number(s): [id number] cc: Po,Umm Gan MD; Vick Rodriguez MD~ Report Number: [id number]: Total DLP = 557.00 mGy-cm CLINICAL HISTORY: fall CT head without contrast Comparison: CT/SR - CT HEAD/BRAIN WO IV CON - 11/07/23 17:40 EDT Findings: No intra-axial mass, midline shift, hydrocephalus, or acute hemorrhage. There is severe cortical atrophy. Low-attenuation changes are seen in the periventricular white matter most compatible with microvascular ischemia. Lacunar infarct left thalamus. There is no sinus or mastoid fluid. The orbits are unremarkable. No skull fracture. IMPRESSION: 1. No acute intracranial findings. Severe involutional changes. This document has been electronically signed by: River Bahena MD on 09/07/2024 05:51:30 Discharge Plan Discharge Clinical Impression: Falls frequently Patient Disposition: Still a Patient Prescriptions: No Action (DME) AFO prosthetic See Rx Instructions .Route .MEDSUPPLY Qty: 1 0RF Rx Instructions: As directed furosemide 20 mg tablet 20 mg PO DAILY 90 Days Qty: 90 2RF miconazole nitrate [Zeasorb AF] 2 % powder 1 appl topical BID Qty: 85 9RF clotrimazole 1 % cream 1 appl topical BID 28 Days Qty: 45 1RF cyanocobalamin (vitamin B-12) 1,000 mcg capsule 1,000 mcg PO DAILY Qty: 90 3RF rosuvastatin 10 mg tablet 10 mg PO BEDTIME Qty: 90 2RF amlodipine 10 mg tablet 10 mg PO DAILY 90 Days Qty: 90 2RF lisinopril 2.5 mg tablet 2.5 mg PO DAILY 90 Days Qty: 90 2RF calcitriol 0.25 mcg capsule 0.25 mcg PO 5XW 30 Days Qty: 22 7RF folic acid 1 mg tablet 1 mg PO DAILY Qty: 90 3RF aspirin [Adult Low Dose Aspirin] 81 mg tablet,delayed release (DR/EC) 81 mg PO DAILY (DME) walker Misc See Rx Instructions .ROUTE .MEDSUPPLY Qty: 1 0RF Rx Instructions: As directed lidocaine [Aspercreme (lidocaine)] 4 % adhesive patch,medicated 1 patch topical DAILY PRN (Reason: pain) Qty: 15 0RF (DME) FreeStyle Lite Strips Strip See Rx Instructions .ROUTE .MEDSUPPLY Qty: 100 3RF Rx Instructions: As directed check the BS QD (DME) blood pressure monitor [Blood Pressure Kit] Kit See Rx Instructions .ROUTE .MEDSUPPLY Qty: 1 0RF Rx Instructions: As directed fluconazole 100 mg tablet See Rx Instructions PO DAILY Qty: 8 0RF Rx Instructions: 2 tabs first day then 1 tab QD x 7 days orally daily; (DME) adult incontinence wipes See Rx Instructions .Route .MEDSUPPLY Qty: 4 12RF Rx Instructions: As directed (DME) adult pull ups XL See Rx Instructions .Route .MEDSUPPLY Qty: 120 12RF Rx Instructions: As directed (DME) washable bedpads XL See Rx Instructions .Route .MEDSUPPLY Qty: 2 12RF Rx Instructions: As directed (DME) disposable [place] [facility] [place] Instructions .Route Qty: 1000 12RF Rx Instructions: As directed benzonatate 200 mg capsule 200 mg PO BID-TID PRN (Reason: cough) Qty: 20 0RF oseltamivir [Tamiflu] 75 mg capsule 75 mg PO BID 5 Days Qty: 10 0RF Print Language: Indian
[2024-09-07 04:38] LABS: Hematocrit 32.7 % (42.0-52.0); Mean Corpuscular HGB Conc 33.6 g/dl (31.0-36.0); Mean Corpuscular Hemoglobin 30.1 pg (27.0-33.0); Mean Corpuscular Volume 89.6 fL (80.0-98.0); Mean Platelet Volume 10.2 fL (9.4-12.4); Platelet Count 190 X10*3/uL (160-400); Red Blood Count 3.65 X10*6/uL (4.60-5.80); Red Cell Distribution Width 13.5 % (11.0-16.0); White Blood Count 6.9 X10*3/uL (4.8-10.8)
--- OUTSIDE RECORDS SUMMARY | 2024-09-07 04:42 | XMS_ITS ---
Author Organization [facility] Address [address] [place] [address] Care Team Providers Care Nursery Laborer Name Role Phone Umm Mckeon Primary Care Provider Sivakumar Spears [phone] REASON FOR VISIT no show Encounters Encounter Location Date Provider Diagnosis [facility] [address] [place] [address] 04/23/2024 Sivakumar Grullon Plan Of Treatment No Information Progress Notes * Christin WOODSisDOB:06/1950 (74 yo M)Acc No.[id number]:04/23/2024 Patient:?Christin Woods :1950???Age:74 Y???Sex:Male Address:[address], [place], [address] * true * Date:? Generated for Sarah jones/Arsen/eTransmitting on:?09/07/2024 04:42 AM EST
--- OUTSIDE RECORDS SUMMARY | 2024-09-07 04:42 | XMS_ITS | Data Portability ---
Author Organization [employer] Address [address] [place] [id number] Care Team Providers Care Entertainment & Media Correspondent Name Role Phone [facility] Referring Provider Assessment Encounter Date Assessment Date Assessment LastModified by Organization Details LastModified Time 06/24/2023 06/24/2023 I have reviewed and agree with the assessment and plan as documented by the overhead garage door hanger. I provided real-time medical direction for this encounter and was immediately available to provide additional phone-based assistance as needed. 73M presenting with fungal rash to groin x 1 month. Using miconazole and clotrimazole regularly with no improvement. Pt denies any pain, no fever. O/E: fungal rash noted to groin bilaterally, no genital involvement. No swelling. Slight erythema, no warmth. Suspect candidiasis, not improving with usual treatment. No underlying infection or cellulitis. Recommend fluconazole pox1. No allegies. Red flags and return precautions discussed. paysola Not available 06/24/2023 19:55:26 Plan of Treatment Reminders Order Date Submit Date Provider Last Modified By Organization Details Last Modified Time Details Appointments None recorded. Lab None recorded. Referral None recorded. Procedures None recorded. Surgeries None recorded. Imaging None recorded. Medication Orders fluconazole 150 mg tablet 2022 023 [facility] #[id number], [address] [facility], [place], [address], 19:55:29 Patient TargetsNo targets recorded. Patient InstructionsNo instructions recorded. Reason for Referral None Reported. Medical Equipment None Reported. Medications Name Sig Start Date Stop Date Status Note LastModified by Organization Details LastModified Time fluconazole 150 mg tablet Take 1 tablet by oral route for 1 day. active Not Available Not Available N ot Available amlodipine 10 mg tablet TAKE 1 TABLET BY MOUTH DAILY active Not Available Not Available No t Available folic acid 1 mg tablet TAKE 1 TABLET BY MOUTH EVERY DAY active Not Available Not Available No t Available furosemide 20 mg tablet TAKE 1 TABLET BY MOUTH DAILY FOR 90 DAYS active Not Available Not Available No t Available nystatin 100,000 unit/gram topical powder APPLY TO AFFECTED AREA 3 TIMES A DAY active Not Available Not Available No t Available clotrimazole 1 % topical cream 1 APPL TOPICALLY 2 TIMES A DAY FOR 4 WEEKS active Not Available Not Available No t Available lisinopril 2.5 mg tablet TAKE 1 TABLET BY MOUTH DAILY active Not Available Not Available No t Available rosuvastatin 10 mg tablet TAKE 1 TABLET BY MOUTH EVERY DAY active Not Available Not Available No t Available Antifungal (miconazole) 2 % topical powder 1 APPL TOPICALLY 2 TIMES A DAY active Not Available Not Available No t Available cyanocobalami n (vitamin B-12) 1,000 mcg capsule TAKE 1 CAPSULE BY MOUTH EVERY DAY active Not Available Not Available No t Available Vitals Date Recorded Body temperature Oxygen saturation Oxygen saturation in Arterial blood by Pulse oximetry Respiratory rate Heart rate Systolic blood pressure Diastolic blood pressure Provider Name and Address Organization Details Last Updated DateTime 3 98.2 [degF] 98 % 98 % 14 /min 56 /min 118 mm[Hg] 69 mm[Hg] Not Available [facility] - production 3 19:48:46 Social History None recorded. Functional Status None recorded. Mental Status None recorded. Family History Nothing Reported. Medical History No medical history recorded. Past Encounters Encounter ID Performer Location Encounter Start Date Encounter Closed Date Diagnosis/Indication Diagnosis SNOMED-CT Code Diagnosis ICD10 Code Diagnosis Note [id number] Opal Kim MD [facility] - [facility] [address] [place] [phone] 06/24/2023 19:48:32 06/25/2023 19:21:53 Candidiasis of skin 84216846 B37.2 Health Concerns Section Related Observation LastModified by Organization Detai ls LastModified Time None Recorded Concern Status LastModified by Organization Details LastModified Time None Recorded Advance Directives Directive None Recorded Payers Encounter Date Sequence Insurance Name Policy Number Policy Leal Covered Member ID Leal Member ID Guarantor Name 06/24/2023 1 [facility] - DOS ON OR AFTER 2022 - DUAL ELIGIBLE - FDC OPTIONS AND ONE CARE (MEDICARE REPLACEMENT/ADV ANTAGE - HMO) [place] [id number] [place] Notes Date Note Type Note Provider Name and Address Organization Details Recorded Time 06/24/2023 text/html [facility] Nursing Assessment: Chief Complaints: Pain PMH: Diabetes Allergies: No Known Comments: Member has a hernia in the groin - Left side - Redness - Denies fever/chills - Requesting wound care and a wellness check - Maldonado LOZANO .................. .................. .................. .................. .................. .................. .................. ............... Commercial Insulator Note From Jayant Campos: Pt reports rash in his groin area for several months. Pt saw PCP one month ago, rx clotrimizole creame and micconazole powder, no improvement in rash. Pt denies any itching, burning or pain. Pt denies f/n/v/d. Pt is alert, NAD. VSS. Afebrile. Neuro exam normal. Lungs CTA. Benign ABD exam. Cutaneous candidiasis on both sides of groin area, no genital involvement. [facility] contacted and sent rx to pharmacy. Pt/family instructed to f/u with PCP in the morning and to seek emergent medial care for new or worsening sx, which are reviewed with them. .................. .................. .................. .................. .................. .................. .................. ............... Disposition: Vanna Kim MD [address] [facility],[address], [place], [address], GUILLERMO PAREDES 06/24/2023 20:21:09
--- OUTSIDE RECORDS SUMMARY | 2024-09-07 04:42 | XMS_ITS ---
Author Organization [facility] Address [address] [place] [address] Care Team Providers Care Prototype Fabricator Name Role Phone Umm Mckeon Primary Care Provider Sivakumar Spears [phone] REASON FOR VISIT Painful nail(s) aggrevated by shoes and causing difficulty standing/walking. Medications Medication SIG (Take, Route, Frequency, Duration) Notes Start Date End Date Status Vitamin B12 Active Lisinopril 2.5 MG 1 tablet Orally Once a day for 30 day(s) Active amLODIPine Besylate 10 MG 1 tablet Orall y Once a day for 30 day(s) Active Rosuvastatin Calcium 10 MG 1 tablet Oral ly Once a day for 30 day(s) Active Folic Acid 1 MG 1 tablet Orally Once a day for 30 day(s) Active Furosemide 20 MG 1 tablet Orally Once a day for 30 day(s) Active Extra Depth Diabetic Shoes with 3 Pair Custom heat-molded multi-density innersoles for 1 year Dx: 10/23/2023 Active Aspirin 81 MG 1 tablet Orally Once a day Active Encounters Encounter Location Date Provider Diagnosis [facility] [address] [place] [address] 04/23/2024 Sivakumar Grullon Tinea unguium B35.1 ; Pain in right toe(s) M79.674 and Pain in left toe(s) M79.675 Assessments Encounter Date Diagnosis (ICD Code) Assessment Notes Treatment Notes Treatment Clinical Notes Section Notes 04/23/2024 Tinea unguium (ICD-10 - B35.1) 04/23/2024 Pain in right toe(s) (ICD-10 - M79.674) 04/23/2024 Pain in left toe(s) (ICD-10 - M79.675) Plan Of Treatment No Information Procedure Notes * Category Sub-Category Detail Notes Debride Nail 6-10 Nail debridement Nail debridem ent performed extensively to reduce/remove overall nail length and girth, subungual debris, and necrotic tissue, by manual and electrical means with use of a nail nipper and/or dremel, to more viable healthy nail plate or bed tissue 6-10. Silver nitrate used for any petechial bleeding as necessary. Patient chooses, no pharmaceutical tx (50192) Progress Notes * Christin WOODSisDOB:06/1950 (74 yo M)Acc No.[id number]:04/23/2024 Progress Note Patient:?ROBINCARMITAChristin is Provider:?Sivakumar Grullon DPM :1950???Age:74 Y???Sex:Male Tomy e:04/23/2024 Address:[address] [place] [address], [address] [place], [place] [id number] Pcp:Umm Mckeon Subjective: * Chief Complaints: * ???1. Painful nail(s) aggrev ated by shoes and causing difficulty standing/walking.. 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 * Medical History:?Diabetic, G laucoma, Kidney disease. * Medications:?Taking Aspirin 81 MG Tablet Chewable 1 tablet Orally Once a day , Taking Vitamin B12 , Taking Lisinopril 2.5 MG Tablet 1 tablet Orally Once a day , Taking Rosuvastatin Calcium 10 MG Tablet 1 tablet Orally Once a day , Taking Folic Acid 1 MG Tablet 1 tablet Orally Once a day , Taking amLODIPine Besylate 10 MG Tablet 1 tablet Orally Once a day , Taking Furosemide 20 MG Tablet 1 tablet Orally Once a day , Taking Extra Depth Diabetic Shoes with 3 Pair Custom heat-molded multi-density innersoles for 1 year Dx: Objective: * Vitals:? * Examination: ???Nails: ?NAILS are:?elongated,overgrown,dystrophic,greater than 3mm thick,discolored and friable with crumbly malodorous subungual debris, with pain on palpation.? Assessment: * Assessment: 1.?Tinea unguium - B35.1 (Pr imary)???2.?Pain in right toe(s) - M79.674???3.?Pain in left toe(s) - M79.675??? Plan: * Treatment: * Procedures:?Debride Nail 6-10:?Nail debridement?Nail debridement performed extensively to reduce/remove overall nail length and girth, subungual debris, and necrotic tissue, by manual and electrical means with use of a nail nipper and/or dremel, to more viable healthy nail plate or bed tissue 6-10. Silver nitrate used for any petechial bleeding as necessary. Patient chooses, no pharmaceutical tx (22900).? * Procedure Codes:?12955 DEBRI DE NAIL, 6 OR MORE, Modifiers: XS * Images: * The named appointment provid er may or may not be the originator of this progress note, and it is not deemed complete until electronically signed by the appointment provider. Sign off status: Pending * Provider:?Sivakumar Grullon DPM Date:? 024 Generated for Sarah jones/Arsen/Donny on:?09/07/2024 04:42 AM EST History and Physical Notes * HPI (History of Present Illness) Category Sub-Category Detail Notes Category Not es Painful Nails Misc: family is presen t and actrs as int At Risk footcare Pt States Last PCP Visit: Date: 4 Foot Pain Onset/Cause: cva 2013 Course: worse Duration: several years Nature: dropfoot and inabili ty to walk Treatments: wheelchair and walke r--afo brace failed Quality/Severity moderate, severe Location Left Examination Category Sub-Category Detail Notes Category Not es Nails NAILS are: elongated,overgr own,dystrophic,greater than 3mm thick,discolored and friable with crumbly malodorous subungual debris, with pain on palpation
--- OUTSIDE RECORDS SUMMARY | 2024-09-07 04:42 | XMS_ITS | Clinical Summary ---
Author Organization [facility] Address [address] [place] [address] [place] [address] Phone Care Team Providers Care Customer Sales Consultant Name Role Phone Umm Mckeon MD Primary Care Provider [phone] Allergies No known active allergies Medications amLODIPine (NORVASC) 10 MG tablet Take 1 tablet by mouth 1 (one) time each day Active aspirin (ST ANDIE) 81 MG EC tablet Take 1 tablet by mouth 1 (one) time each day Active cholecalciferol (VITAMIN D-3) 25 MCG (1000 UT) capsule Take 1 capsule by mouth 1 (one) time each day 06/16/2018 Active folic acid (FOLVITE) 1 MG tablet Take 1 tablet by mouth 1 (one) time each day Active furosemide (LASIX) 20 MG tablet Take 1 tablet by mouth 1 (one) time each day 05/20/2014 Active lisinopril (PRINIVIL,ZESTR IL) 2.5 MG tablet Take 1 tablet by mouth 1 (one) time each day Active metoprolol succinate XL (TOPROL-XL) 50 MG 24 hr tablet Take 1 tablet by mouth 1 (one) time each day 11/09/2018 Active paricalcitol (ZEMPLAR) 1 MCG capsule Take 1 capsule by mouth 1 (one) time each day Active rosuvastatin (CRESTOR) 10 MG tablet Take 1 tablet by mouth 1 (one) time each day 01/16/2016 Active Cyanocobalamin (B-12) 1000 MCG capsule Take 1 tablet by mouth 1 (one) time each day 12/14/2022 Active Active Problems Problem Noted Date Diagnosed Date Hypertension 10/25/2021 Benign hypertensive renal disease 11/16/2020 Chronic kidney disease stage 4 11/16/2020 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 11/16/2020 Hyperparathyroidism due to renal insufficiency 0 11/16/2020 Family History Medical History Relation Comments Kidney disease Child Hypertension Sibling Relation Status Comments Child Father Mother Sibling Social History Tobacco Use Types Packs/Day Years Used Date Smoking Tobacco: Never Smokeless Tobacco: Never Tobacco Cessation:Counseling Given: Not Answered Alcohol Use Standard Drinks/Week Comments No 0 (1 standard drink = 0.6 oz pur e alcohol) Sex and Gender Information Value Date Recorded Sex Assigned at Not on file Legal Sex Male 5:02 PM EST Gender Identity Not on file Sexual Orientation Not on file Last Filed Vital Signs Vital Sign Reading Time Taken Comments Blood Pressure 110/70 12/26/2022 4:34 PM EDT Pulse 63 12/26/2022 4:34 PM EDT Temperature - - Respiratory Rate - - Oxygen Saturation 99% 04/26/2021 3:38 PM EDT Inhaled Oxygen Concentration - - Weight 74.8 kg (165 lb) 12/26/2022 4:34 PM EDT Height 165.1 cm (5' 5 ) 12/23/2019 12:00 PM EDT Body Mass Index 27.46 12/23/2019 12:00 PM EDT Plan of Treatment Health Maintenance Due Date Last Done Comments Pneumococcal Vaccine: 65+ Ye ars (1 of 2 - PCV) 1955 Colorectal Cancer Screening: Annual FOBT 1998 Colorectal Cancer Screening: Colonoscopy 1998 Colorectal Cancer Screening: Sigmoidoscopy 1998 Influenza Vaccine (#1) 2024 Hepatitis B Vaccine Aged Out No longe r eligible based on patient's age to complete this topic Insurance [facility] ([id number]) [facility] ([id number]) Care Teams Customer Sales Consultant Relationship Specialty Start Date End Date Umm Mckeon MD [facility] [address] [place], [place] PCP - General 08/22/20
--- NOTE | 2024-09-07 04:43 | PC.NURSE ---
family at bedside. states that pt is not supposed to get up on his own but pt does attempt to use bathroom at night and ends up falling.
--- OUTSIDE RECORDS SUMMARY | 2024-09-07 04:43 | XMS_ITS ---
Author Organization [facility] Address [address] [place] [address] Care Team Providers Care Porcelain Enamel Repairer Name Role Phone Umm Mckeon Primary Care Provider Sivakumar Spears Unavailable [phone] Allergies No Known Allergies REASON FOR VISIT Painful nail(s) aggrevated by shoes and causing difficulty standing/walking., At Risk Footcare, Foot pain Medications Medication SIG (Take, Route, Frequency, Duration) Notes Start Date End Date Status Rosuvastatin Calcium 10 MG 1 tablet Oral ly Once a day for 30 day(s) Active Folic Acid 1 MG 1 tablet Orally Once a day for 30 day(s) Active amLODIPine Besylate 10 MG 1 tablet Orall y Once a day for 30 day(s) Active Aspirin 81 MG 1 tablet Orally Once a day Active Furosemide 20 MG 1 tablet Orally Once a day for 30 day(s) Active Lisinopril 2.5 MG 1 tablet Orally Once a day for 30 day(s) Active Extra Depth Diabetic Shoes with 3 Pair Custom heat-molded multi-density innersoles for 1 year Dx: 10/23/2023 Active Vitamin B12 Active Social History Tobacco Use: Social History Observation Description Date Details (start date - stop date) Never Smoker NA - NA Tobacco Use/Smoking Question Answer Notes Are you a: nonsmoker Additional Findings: Tobacco Non-User Current no n-smoker Alcohol Screen Question Answer Notes Did you have a drink containing alcohol in the p ast year? No Points 0 Interpretation Negative Tobacco use other than smoking: Question Answer Notes Are you an other tobacco user? No Problems Problem Type SNOMED Code ICD Code Onset Dates Problem Status W/U Status Risk Notes Problem Polyneuropathy due to type 2 diabetes mellitus (652340861) Type 2 diabetes mellitus with diabetic polyneuropathy (E11.42) Active confirmed Vital Signs Height 5 ft 2 in in 10/23/2023 Weight 160 lbs 10/23/2023 BMI 29.26 kg/m2 10/23/2023 Procedures Procedure Date Ordered Date Performed Result Body [place] e 69438-DZCW SKIN LESIONS, 2 TO 4 10/23/2023 N/A Encounters Encounter Location Date Provider Diagnosis [facility] [address] [address] 10/23/2023 Sivakumar Grullon Tinea unguium B35.1 ; Pain in right toe(s) M79.674 ; Pain in left toe(s) M79.675 ; Type 2 diabetes mellitus with diabetic polyneuropathy E11.42 and Left foot drop M21.372 Assessments Encounter Date Diagnosis (ICD Code) Assessment Notes Treatment Notes Treatment Clinical Notes Section Notes 10/23/2023 Tinea unguium (ICD-10 - B35.1) 10/23/2023 Pain in right toe(s) (ICD-10 - M79.674) 10/23/2023 Pain in left toe(s) (ICD-10 - M79.675) 10/23/2023 Type 2 diabetes mellitus with diabetic polyneuropathy (ICD-10 - E11.42) Patient Educated with: DIABETIC FOOT CARE INSTRUCTIONS. pdf (DIABETIC FOOT CARE INSTRUCTIONS. pdf) 10/23/2023 Left foot drop (ICD-10 - M21.372) Plan Of Treatment Medication Medication Name Sig Start Date Stop Date Notes Extra Depth Diabetic Shoes w ith 3 Pair Custom heat-molded multi-density innersoles for 1 year Dx: 10/23/2023 Treatment Notes Assessment Notes Type 2 diabetes mellitus wit h diabetic polyneuropathy Patient Educated with: DIABETIC FOOT CARE INSTRUCTIONS.pdf (DIABETIC FOOT CARE INSTRUCTIONS.pdf) Pending Test Test Name Order Date 99520-ZMGG SKIN LESIONS, 2 TO 4 10/23/19 24 Next Appt Details Follow Up: 6 Months, Reason: Procedure Notes * Category Sub-Category Detail Notes [...] as necessary. Patient chooses, no pharmaceutical tx (74871) Keratoma Treatment Parring or Cutting o f Benign Hyperkeratotic Lesion(s) 84752 ( 2-4 Lesions ) - The Benign hyperkeratotic lesions, as described above were pared, and/or cut utilizing a sterile 15 blade, tissue nippers, and/or dremel Progress Notes * Christin WOODSisDOB:06/1950 (73 yo M)Acc No.[id number]:10/23/2023 Progress Notes Patient:?Christin Woods is Provider:?Sivakumar Grullon DPM :1950???Age:73 Y???Sex:Male Tomy e:10/23/2023 Address:[address] [place] [address], [address], [facility] Pcp:Umm Mckeon Subjective: * Chief Complaints: * ??? Painful nail(s) aggrevat ed by shoes and causing difficulty standing/walking.At Risk FootcareFoot pain * HPI: ???Painful Nails:?Misc:?family is present and actrs as int.?At Risk footcare:?Pt States Last PCP Visit:?Date?09/24/2023 ???Foot Pain:?Nature:?dropfoot and inability to walk.?Location?Left .?Duration:?several years.?Onset/Cause:?cva 2014.?Course:?worse.?Treatments:?wheelchair and walker--afo brace failed.?Quality/Severity?moderate, severe.? * ROS:?General/Constitutional:?Nausea?denies, denies.?Vomiting?denies, denies.?Hunger Thirst?denies, denies.?Loss appetite?denies, denies.?Chills?denies, denies.?Fatigue?denies, denies.?Fever?denies, denies.?Night Sweats denies, denies.?Unexplained weight loss?denies, denies.?Unexplained weight gain?denies.?Ophthalmologic:?Blurred vision?denies.?Red eye?denies.?HEENTM:?Dentures?denies, denies.?Dizziness?denies, denies.?Glasses/contacts?admits, denies.?Retinopathy?denies, denies.?Blurred/double vision?denies, denies.?TMJ?denies, denies.?Discharge/drainage?denies, denies.?Implants?denies, denies.?Sore throat?denies.?Dental implants?denies.?Hard of hearing ?denies, denies.?Difficulty chewing/swallowing/speaking?denies, denies.?Nose bleeds?denies, denies.?Sore mouth?denies, denies.?Swollen glands?denies.?Respiratory:?On Oxygen?denies, denies.?Pneumonia/pleurisy?denies, denies.?Bronchitis?denies, denies.?Emphysema?denies, denies.?Coughing?denies, denies.?Cough blood?denies, denies.?Shortness of breath?denies, denies.?Wheezing?denies, denies.?Cardiovascular:?Pacemaker?denies, denies.?MVP?denies, denies.?WPW?denies, denies.?CHF?denies, denies.?Heart attack?admits, denies.?Septal defect?denies, denies.?Rapid beat?denies, denies.?Chest pain ?denies, denies.?Atrial Fib.?denies, denies.?Murmur/Palpitations?denies, denies.?Gastrointestinal:?Hemorrhoids?denies, denies.?Stomach/Abdominal pain?denies, denies.?Dark blood stool?denies, denies.?Irritable bowel ?denies, denies.?Constipation?denies, denies.?Diarrhea?denies, denies.?Vomiting?denies.?Hematology:?Swelling?denies, denies.?Clots?denies.?Varicose Veins?denies.?Bruising?denies, denies.?Bleeding problem?denies, denies.?Genitourinary:?Blood urine?denies, denies.?Frequent/Painfu/urination/bladder control?denies, denies.?Kidney stones?admits, denies.?Infection (UTI)?denies, denies.?Nephropathy?denies, denies.?sex trans dis (STD)?denies.?Prostate?denies.?Musculoskeletal:?Hammertoes?denies, denies.?Bunions?denies, denies.?Scoliosis/kyphosis?denies.?Back Pain?denies.?Muscle Cramps/ Resting?denies.?Muscle cramps / walking?denies, denies.?Generalized aches and pains?denies, denies.?Weakness?denies, denies.?Integ.:?Rogers?denies, denies.?Scars?denies, denies.?Corns/calluses?denies, denies.?Ingrown nails?denies, denies.?Painful nails?denies, denies.?Open Sores?denies.?Rashes?denies, denies.?Neurologic:?Difficulty sleeping?denies, denies.?Bipolar?denies.?Brain disorder?denies, denies.?Numbness?denies.?Balance trouble?admits, denies.?Confusion?denies, denies.?Fainting/blackouts?denies, denies.?Headache?denies.?Tingling?denies.?Tremors?denies, denies.? * Medical History:? * Surgical History:?Denies Pas t Surgical History * Hospitalization/Major Diagno stic Procedure:?Ate Something bad and throwing up- kept patient due to balance issues 10/05 * Family History:?Mother: unkn own, diagnosed with Diabetic - NIDDM, Unspecified essential hypertension, Unspecified cerebral artery occlusion with cerebral infarction.?Father: unknown, diagnosed with Unspecified essential hypertension.? * Social History:?Tobacco Use:?Tobacco Use/Smoking?Are you a:?nonsmoker ?Additional Findings: Tobacco Non-User?Current non-smoker ?Tobacco use other than smoking?Are you an other tobacco user??No ???Drugs/Alcohol:?Drugs?Have you used drugs other than those for medical reasons in the past 12 months??No ?Alcohol Screen?Did you have a drink containing alcohol in the past year??No ?Points?0 ?Interpretation?Negative ???Miscellaneous:?Caffeine: yes, frequency:, 1-2 cups per day. ?Children: yes. ?Exercise: yes, Physical Therapy. ?Marital status: single. ?Occupation: Retired. * Medications:?TakingAspirin 8 1 MG Tablet Chewable 1 tablet Orally Once a dayVitamin B12 Lisinopril 2.5 MG Tablet 1 tablet Orally Once a dayRosuvastatin Calcium 10 MG Tablet 1 tablet Orally Once a dayFolic Acid 1 MG Tablet 1 tablet Orally Once a dayamLODIPine Besylate 10 MG Tablet 1 tablet Orally Once a dayFurosemide 20 MG Tablet 1 tablet Orally Once a dayMedication List reviewed and reconciled with the patientTaking Aspirin 81 MG Tablet Chewable 1 tablet Orally Once a dayTaking Vitamin B12 Taking Lisinopril 2.5 MG Tablet 1 tablet Orally Once a dayTaking Rosuvastatin Calcium 10 MG Tablet 1 tablet Orally Once a dayTaking Folic Acid 1 MG Tablet 1 tablet Orally Once a dayTaking amLODIPine Besylate 10 MG Tablet 1 tablet Orally Once a dayTaking Furosemide 20 MG Tablet 1 tablet Orally Once a dayMedication List reviewed and reconciled with the patient * Allergies:?N.K.D.A.yes[Aller gies Verified] Objective: * Vitals:?Ht: 5 ft 2 in, Wt: 1 60, BMI:29.26, Shoe size: 8, BS: not taken. * Examination: ???Ophthalmology Referral: ?DIABETES EYE EXAM?Nails: ?NAILS are:? Elongated, overgrown, dystrophic, lytic, greater than 3mm thick, discolored and friable with crumbly malodorous subungual debris, with dull to no pain on palpation due to neuropathy, 1-5 B/L.?Neurological: ?SENSORY:? Neurological exam demonstrates, reduced vibration sensation, reduced proprioception sensation, 5.07 monofilament test performed at plantar aspects of 5 varied sites per foot shows sensation, reduced , B/L.?TINEL'S COMPRESSION:?Negative tarsal tunnel, art pedis, and medial calcaneal nerves B/L.?BABINSKI REFLEX:?absent.?Vascular: ?DP PULSES:? 0/4, LEFT, 1/4, RIGHT.?PT PULSES:? 0/4, B/L.?CAPILLARY FILL TIME:? delayed, all digits, B/L.?HAIR GROWTH/TEXTURE/ELASTICITY/TURGOR:? decreased, B/L.?PIGMENTATION:? mottled, B/L.?EDEMA:? 1/4, B/L, Foot, Ankle(s), Leg(s).?TELANGECTASIA:?absent.?VARICOSITIES:?absent.?Dermatologic: ?SKIN FINDINGS:? Skin exam reveals Keratotic lesion(s) located at, SUB MTH (s), 1, Right, Heel(s), Right.?General Examination: ?GENERAL APPEARANCE:? Pt accompanied by, Female, Artificial Flowers Starcher, Daughter, who serves as, Industrial Gas Production Operator/Printed Circuit Boards Laminator, additional Historian.?FOOT EXAM:?Neuroma Pain: ?PALPATION:?No interspace pain noted on palpation.?Orthopedic: ?MUSCLE STRENGTH:?5/5 all groups in a symmetrical fashion , B/L.?GAIT ABNORMALITY:?pronated, abducted, B/L.?FOOT MORPHOLOGY:? dropfoot left with varus rotation .? Assessment: * Assessment: 1.?Tinea unguium - B35.1 (Pr imary)?2.?Pain in right toe(s) - M79.674?3.?Pain in left toe(s) - M79.675?4.?Type 2 diabetes mellitus with diabetic polyneuropathy - E11.42?5.?Left foot drop - M21.372? Plan: * Treatment: * Procedures:?Debride Nail 6-10:?Nail debridement?Nail debridement performed extensively to reduce/remove overall nail length and girth, subungual debris, and necrotic tissue, by manual and electrical means with use of a nail nipper and/or dremel, to more viable healthy nail plate or bed tissue 6-10. Silver nitrate used for any petechial bleeding as necessary. Patient chooses, no pharmaceutical tx (02402).?Keratoma Treatment:?Parring or Cutting of Benign Hyperkeratotic Lesion(s)?09560 ( 2-4 Lesions ) - The Benign hyperkeratotic lesions, as described above were pared, and/or cut utilizing a sterile 15 blade, tissue nippers, and/or dremel.? * Procedure Codes:?66255 DEBRI DE NAIL, 6 OR MORE, Modifiers: XS 43184 TRIM SKIN LESIONS, 2 TO 4, Modifiers: XS * Preventive Medicine:? ??Counseling:?Discussion:?-03: Office or other outpatient visit for the evaluation and management of a new patient, which required a medically appropriate history and/or examination and LOW level of DECISION MAKING for: 1 STABLE ACUTE UNCOMPLICATED PROBLEM, 2 OR MORE MINOR PROBLEMS, OR 1 STABLE CHRONIC PROBLEM, THAT POSE(S) A LOW RISK FOR MORBIDITY/MORTALITY. The visit on the day of the encounter encompassed interpreting the data and educating the patient as to the nature of their condition, treatment options available according to their individual PMH, meds, allergies, and overall health/living conditions, as well as any potential risks or complications that may occur from a failure to adhere to, and participate in, the recommended course of therapy. The discussion included a complete verbal, and/or written explanation of the examination results, any x-rays taken, the proposed diagnosis, and outline of the treatment plan. A schedule for future care needs was also explained. The patient verbalized an understanding of the instructions at this time and agreed to be an active participant in their treatment. If the patient should think of any questions or concerns after the visit, I have encouraged the patient to call the office.? * Follow Up:?6 Months * Images: * Sign off status: Completed true * Provider:?Sivakumar Grullon DPM Date:? 024 Generated for Sarah jones/Arsen/eTsulaimansmitting on:?09/07/2024 04:42 AM EST History and Physical [...] Category Sub-Category Detail Notes Category Not es Neuroma Pain PALPATION: No interspace pain noted on palpation Neurological SENSORY: Neurological exa m demonstrates, reduced vibration sensation, reduced proprioception sensation, 5.07 monofilament test performed at plantar aspects of 5 varied sites per foot shows sensation, reduced , B/L BABINSKI REFLEX: absent TINEL'S COMPRESSION: Negative tarsal stu dayami, art pedis, and medial calcaneal nerves B/L Dermatologic SKIN FINDINGS: Skin exam reveal s Keratotic lesion(s) located at, SUB MTH (s), 1, Right, Heel(s), Right Orthopedic GAIT ABNORMALITY: pronated, abducted, B/L FOOT MORPHOLOGY: dropfoot left with v arus rotation MUSCLE STRENGTH: 5/5 all groups in a symmetrical fashion , B/L General Examination GENERAL APPEARANCE: Pt accom panied by, Female, Artificial Flowers Starcher, Daughter, who serves as, Industrial Gas Production Operator/Printed Circuit Boards Laminator, additional Historian FOOT EXAM: Lower Extremity Neurological Exa m performed:: Yes Visual exam of foot performed:: Yes Date: 10/23/2023 Sensory testing performed:: sensations d iminished Pedal pulse taking performed:: absent Ophthalmology Referral DIABETES EYE EXAM Diabetic Retinopa thy Screening:: No Findings of Diabetic Eye Exam:: no retin opathy Vascular DP PULSES (B): 0/4, LEFT, 1/4, RIGHT PT PULSES (B): 0/4, B/L CAPILLARY FILL TIME: delayed, all digits , B/L TROPHIC CONDITION-TEXTURE/EL ASTICITY/TURGOR/HAIR GROWTH (B): decreased, B/L EDEMA (C): 1/4, B/L, Foot, Ankl e(s), Leg(s) TELANGECTASIA: absent VARICOSITIES: absent PIGMENTATION: mottled, B/L Nails NAILS are: Elongated, overg rown, dystrophic, lytic, greater than 3mm thick, discolored and friable with crumbly malodorous subungual debris, with dull to no pain on palpation due to neuropathy, 1-5 B/L
--- NOTE | 2024-09-07 04:58 | PC.NURSE ---
daughter Sandra's number: [phone]. family member Jigar: [phone]
[2024-09-07 04:59] LABS: Troponin-I High Sensitivity 9.3 ng/L (<3.5-35.0)
[2024-09-07 05:03] LABS: Alanine Aminotransferase 12 U/L (0-40); Albumin Level 4.1 g/dL (3.5-5.0); Alkaline Phosphatase 54 U/L (39-117); Anion Gap 14 (12-20); Aspartate Amino Transferase 20 U/L (5-37); Bilirubin Total 0.5 mg/dL (0.0-1.0); Blood Urea Nitrogen 39 mg/dL (9-16); Calcium 9.4 mg/dL (8.4-10.2); Carbon Dioxide 22 mmol/L (22-29); Chloride 107 mmol/L (96-108); Creatinine Clr Calc Pharmacy 31.4; Estimated Glomerular Filt Rate 37; Glucose Random 110 mg/dL (60-115); Potassium 4.8 mmol/L (3.3-5.1); Sodium 138 mmol/L (135-145); Total Protein 7.7 g/dL (6.5-8.0)
[2024-09-07 07:04] LABS: Appearance Urine Clear; Color Urine Yellow; Glucose Urine UA Negative (Negative); Leukocyte Esterase Urine Negative (Negative); Nitrite Urine Negative (Negative); Urine Blood Negative (Negative); Urine Ketones Negative (Negative); Urine Protein Negative (Neg-Trace)
[2024-09-07 09:44] LABS: COVID-19 Test Negative (Negative); IDNOW Serial# 58CA691E
--- NOTE | 2024-09-07 13:43 | MHC.CM.ED ---
Addendum entered by Negrita Rogel 09/07/24 15:27: [facility] is able to offer a bed and is in the process of obtaining insurance auth. Original Note: Received case management consult overnight from Dr Rodriguez. Patient came to the ER due to a fall. Work up essentially negative. Physical therapy eval completed. Short term rehab is recommended. Spoke with patient's daughter/HEALTH SCIENCE INSTRUCTOR Malorie, via telephone at [phone]. Patient has been to [facility] in the past. Family does not feel patient received good care there and is requesting referral to [facility]. Referral made via [facility]. Continue to monitor for d/c needs.
--- NOTE | 2024-09-07 17:40 | PC.NURSE ---
Pt cleaned for urine incontinence. Unable to use [place] cath due to anatomy. pt able to use urinal but has some difficulty/ spills
--- NOTE | 2024-09-07 18:25 | PC.NURSE ---
Daughter at bedside at this time reports she will go home and get pts med list so med rec can be completed
--- NOTE | 2024-09-08 03:38 | PC.NURSE ---
Patient resting in bed comfortable at this time. No distress observed or verbalized by patient.
[2024-09-08 05:28] VITALS: BP 117/56; PULSE 53; RESP 18; TEMP 36; O2SAT 100
[2024-09-08 08:41] VITALS: BP 141/63; PULSE 58; RESP 18; TEMP 36.7; O2SAT 98
--- NOTE | 2024-09-08 08:57 | PHA.MEDREC ---
Pharmacy Consult ? Medication Reconciliation Pharmacy has reviewed the medication reconciliation completed by nursing, spoke to pt's daughter Malorie who confirmed everything was correct. Asked her about calcitriol that was not on the list and added, daughter confirmed he is taking is saturday-saturday.
--- NOTE | 2024-09-08 09:47 | MHC.CM.ED ---
Patient remains in ER overflow. Per [facility], patient can leave at 3pm. Casey PANCHAL booked. Med [facility] with chart. Patient, Sunni LOZANO and Yani BOYCE aware. Attempted to speak with daughter, Malorie, via telephone at [phone]. Lef voicemail with discharge info and CM contact info. Continue to monitor for d/c needs.
[2024-09-08] MEDS: Folic Acid 1 MG TABLET PO (10:15)
[2024-09-08 10:16] VITALS: BP 141/63
[2024-09-08] MEDS: lisinopriL 2.5 MG TABLET PO (10:16)
[2024-09-08] MEDS: amLODIPine Besylate 10 MG TABLET PO (10:16)
[2024-09-08 10:17] VITALS: BP 141/63
[2024-09-08] MEDS: Furosemide 20 MG TABLET PO (10:17)
[2024-09-08] MEDS: Atorvastatin Calcium 40 MG TABLET PO (10:17)
[2024-09-08] MEDS: Cyanocobalamin (Vitamin B-12) 1,000 MCG TABLET 1000 MCG PO (10:17)
[2024-09-08] MEDS: Aspirin Enteric Coated 81 MG TABLET.DR PO (10:17)
--- NOTE | 2024-09-08 10:22 | PC.NURSE ---
this nurse took over patient care at 9am, patient awake/alert to baseline, rr equal/non labored, lungs clear- pt speaking in full sentences, denies current pain/discomfort, vss, pt medicated per order, call montes within reach, plan of care ongoing
--- NOTE | 2024-09-08 13:04 | PC.NURSE ---
Report called to Leslie nursing staff at [facility].
[2024-09-08 15:25] VITALS: BP 129/61; PULSE 55; RESP 18; TEMP 36.6; O2SAT 97
== END 2024-09-08 15:26 ==
PROVIDERS: Registered Nurse Emergency; Emergency Provider Internal Medicine; PCP Internal Medicine
DX: R29.6 Repeated falls (principal); I44.0 Atrioventricular block, first degree; I49.1 Atrial premature depolarization; Z91.81 History of falling; I69.354 Hemiplegia and hemiparesis following cerebral infarction affecting left non-dominant side; E11.22 Type 2 diabetes mellitus with diabetic chronic kidney disease; I12.9 Hypertensive chronic kidney disease with stage 1 through stage 4 chronic kidney disease, or unspecified chronic kidney disease; N18.4 Chronic kidney disease, stage 4 (severe); D63.1 Anemia in chronic kidney disease; E78.00 Pure hypercholesterolemia, unspecified; E21.3 Hyperparathyroidism, unspecified; Z11.52 Encounter for screening for COVID-19; Z79.82 Long term (current) use of aspirin; Z79.02 Long term (current) use of antithrombotics/antiplatelets; Z79.899 Other long term (current) drug therapy
CPT/HCPCS: 36415; 70450; 72170; 80053; 81003; 84484; 85027; 87635; 93005; 97161; 99285

== ENCOUNTER → 2024-09-07 04:05 | Outpatient (BNV) | payer OTHER, SELFPAY | PROVIDERS: Emergency Provider Internal Medicine; PCP Internal Medicine; Visit Provider Internal Medicine | DX: I44.0 Atrioventricular block, first degree (principal); I49.1 Atrial premature depolarization | CPT/HCPCS: 93010 ==

== ENCOUNTER → 2024-09-07 04:55 | Outpatient (BNV) | payer OTHER, SELFPAY | PROVIDERS: Emergency Provider Internal Medicine; PCP Internal Medicine; Visit Provider Radiology Diagnostic Radiology | DX: G31.9 Degenerative disease of nervous system, unspecified (principal); K40.31 Unilateral inguinal hernia, with obstruction, without gangrene, recurrent | CPT/HCPCS: 70450; 72170 ==

== ENCOUNTER 2024-11-24 11:24 | Outpatient (AMB) | payer OTHER, SELFPAY ==
--- NOTE | 2024-11-24 11:32 | A.OFFVIS_ITS ---
Vital Signs 11/24/24 11:33 Height 5 ft 2 in Blood Pressure Location Lt brachial Position Sitting Intake Visit Reasons: follow up per [facility] Allergies No Known Allergies Allergy (Verified 09/07/24 04:40) PFS Medical History Rib pain on left side Status post fall Rash of groin Blister of foot, right Atherosclerotic cardiovascular disease Colon cancer screening Coronary artery disease Umbilical hernia Right inguinal hernia History of ME (myocardial infarction) CKD (chronic kidney disease) stage 4, GFR 15-29 ml/min Thrombocytopenia Vitamin D deficiency History of CVA (cerebrovascular accident) Hypertension Hypercholesterolemia Type 2 diabetes mellitus with hyperglycemia Surgical History No pertinent past surgical history Family History Father Heart disease Mother No problems noted. Social History Housing: House Alcohol intake: former Patient Tobacco Use Status: Never used Tobacco e-Cigarette/Vaping Use: Never Used Second Hand Smoke Exposure: No Advance Directives Date on File: 04/20/22 service: No Current occupational status: retired Cognitive needs: Yes (wheel chair ) Hearing needs: No Vision needs: No Review of Systems Const Denies chills, Denies fatigue, Denies fever(s), Denies frequent falls, Denies weakness, Denies weight gain and Denies weight loss ENT Denies dizziness Card Denies chest pain, Denies leg edema, Denies lightheadedness, Denies palpitations, Denies dyspnea, Denies dyspnea on exertion, Denies orthopnea and Denies other (loss of consciousness) Resp Denies cough, Denies dyspnea and Denies dyspnea on exertion GI Denies hematochezia and Denies change in stool character Musc Denies abnormal gait, Denies muscle weakness, Denies numbness, Denies radiating pain into limb and Denies tingling Neuro Denies abnormal gait, Denies dizziness, Denies frequent falls, Denies numbness, Denies tingling and Denies weakness Endo Denies fatigue and Denies palpitations Coding
[2024-11-24 11:33] VITALS: BP 110/62; PULSE 57
--- NOTE | 2024-11-24 11:37 | MHC.OFFVIS ---
Vital Signs 11/24/24 11:33 Height 5 ft 2 in BMI Reason not done Patient refused/unable BP 110/62 Blood Pressure Location Lt brachial Position Sitting Pulse 57 Intake Visit Reasons: follow up per Day [facility] Intake Note: Follow-up per Day [place] do to ekg changes feeling good Fisher Quahog Required: Yes Fisher Quahog Name: kevan Wood Barrel Rifler Hook: Barrel Rifler Hook Present Accompanied by: caddy/caddie supervisor Allergies No Known Allergies Allergy (Verified 09/07/24 04:40) Medication List - Last Reconciled 11/24/24 by Dmitriy Willis MD [adult incontinence wipes As directed] [adult pull ups As directed] [AFO prosthetic As directed] aspirin (Adult Low Dose Aspirin) 81 mg PO DAILY benzonatate 200 mg PO BID-TID PRN blood pressure monitor (Blood Pressure Kit) As directed blood sugar diagnostic (FreeStyle Lite Strips) As directed check the BS QD calcitriol 0.25 mcg PO MOTUWETHFR@0900 cyanocobalamin (vitamin B-12) 1,000 mcg PO DAILY disposable gloves As directed rosuvastatin 10 mg PO BEDTIME walker As directed [washable bedpads As directed] HPI Comments Details: Katelyn is here for follow-up visit. He was last seen in 2021. It seems that there was concern for bradycardia/first-degre heart block and hence referral. Patient himself denies any cardiac symptoms like angina or shortness of breath or anything else. 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 Per notes, due to soft blood pressure/falls, several medications have been stopped recently including amlodipine, lisinopril, Lasix. Per prior notes, history of myocardial infarction x3 more than 10 years ago but no documentation available. History of stroke as well. In wheelchair. COUNT INCLUDES [facility] Medical History Rib pain on left side Status post fall Rash of groin Blister of foot, right Atherosclerotic cardiovascular disease Colon cancer screening Coronary artery disease Umbilical hernia Right inguinal hernia History of MA (myocardial infarction) CKD (chronic kidney disease) stage 4, GFR 15-29 ml/min Thrombocytopenia Vitamin D deficiency History of CVA (cerebrovascular accident) Hypertension Hypercholesterolemia Type 2 diabetes mellitus with hyperglycemia Surgical History No pertinent past surgical history Family History Father Heart disease Mother No problems noted. Social History Housing: House Alcohol intake: former Patient Tobacco Use Status: Never used Tobacco e-Cigarette/Vaping Use: Never Used Second Hand Smoke Exposure: No Advance Directives Date on File: 04/20/22 service: No Current occupational status: retired Cognitive needs: Yes (wheel chair ) Hearing needs: No Vision needs: No Review of Systems Const Denies chills, Denies fatigue, Denies fever(s), Denies frequent falls, Denies weakness, Denies weight gain and Denies weight loss ENT Denies dizziness Card Denies chest pain, Denies leg edema, Denies lightheadedness, Denies palpitations, Denies dyspnea, Denies dyspnea on exertion, Denies orthopnea and Denies other (loss of consciousness) Resp Denies cough, Denies dyspnea and Denies dyspnea on exertion GI Denies hematochezia and Denies change in stool character Musc Denies abnormal gait, Denies muscle weakness, Denies numbness, Denies radiating pain into limb and Denies tingling Neuro Denies abnormal gait, Denies dizziness, Denies frequent falls, Denies numbness, Denies tingling and Denies weakness Endo Denies fatigue and Denies palpitations Physical Exam Vital Signs: Last Vital Signs Pulse 57 11/24/24 11:33 BP 110/62 11/24/24 11:33 Const General: comfortable and no acute distress Orientation/consciousness: patient oriented x3 HEENT Other: Unremarkable Head: Yes normal to inspection Neck Neck: Yes normal visual inspection Chest Chest palpation & inspection: normal inspection of the chest Resp Auscultation: clear to auscultation bilaterally Cardio Palpation: normal PMI Heart sounds: S1 normal heart sound present, S2 normal heart sound present, no gallops, no murmurs and no rubs GI Palpation (GI): Soft to palpation Back/Spine/Pelvis Other: unremarkable Skin General skin exam: no rashes or lesions noted Neuro General: patient oriented x3 Extrem General: Yes normal to inspection Psych Mental Status: mental status grossly normal Assessment & Plan Assessment & Plan (1) Atherosclerotic cardiovascular disease: Code(s): I25.10 - Atherosclerotic heart disease of [place] coronary artery without angina pectoris Category: Medical (2) First degree heart block: Code(s): I44.0 - Atrioventricular block, first degree Category: Medical (3) Hypertension: Code(s): I10 - Essential (primary) hypertension Category: Medical Qualifiers: Hypertension type: essential hypertension Qualified Code(s): I10 - Essential (primary) hypertension (4) Hypercholesterolemia: Code(s): E78.00 - Pure hypercholesterolemia, unspecified Category: Medical (5) CKD (chronic kidney disease) stage 4, GFR 15-29 ml/min: Code(s): N18.4 - Chronic kidney disease, stage 4 (severe) Category: Medical (6) History of MA (myocardial infarction): Code(s): I25.2 - Old myocardial infarction Category: Medical (7) History of CVA (cerebrovascular accident): Comment: Left-sided weakness April 2009 Code(s): Z86.73 - Personal history of transient ischemic attack (TIA), and cerebral infarction without residual deficits Category: Medical Plan Pertinent data reviewed. EKG with underlying sinus rhythm at 62/Min; FL prolongation to 300 milliseconds; PACs. Nonspecific ST-T changes. Echocardiogram 2021 with normal LVEF, moderate diastolic dysfunction, no significant valvular pathology. Dobutamine Myocardial perfusion imaging study 2021 with infarct in the mid to distal inferolateral wall/mild ischemia. Clinically, he has got no overt cardiac symptoms. Agree with holding off on blood pressure medications if there is indeed hypotension. Today's blood pressure seems normal. With regard to the first-degree heart block, can monitor for any profound bradycardic episodes or dizziness/presyncope. If any, will need further workup to assess for any high-grade AV blocks. We can plan to recheck an EKG and scheduled follow-up visit in one year. In the interim, call with concerns. Discussion Notes In our discussion, I confirmed the absence of current symptoms, such as chest pain or respiratory issues, with both the patient and his caretakers. The patient is scheduled for a return visit in one year to ensure continued health maintenance. There were no discussions regarding specific diagnostic procedures or additional therapeutic plans due to the lack of active complaints. The importance of ongoing monitoring and reporting of any new health changes was emphasized. Consent discussions for treatments or interventions were not needed. Patient Instructions: - Follow up with us in one year for routine health monitoring. - Continue observing your health status and report any new symptoms or concerns to your primary care provider. - Participate in the patient satisfaction survey as discussed. Coding Level of Care Code Est Pt Level 4 (76278) Complex EM visit Add On G2211 Diagnoses Atherosclerotic cardiovascular disease I25.10 First degree heart block I44.0 Essential hypertension I10 Hypertension type: essential hypertension Hypercholesterolemia E78.00 CKD (chronic kidney disease) stage 4, GFR 15-29 ml/min N18.4 History of MA (myocardial infarction) I25.2 History of CVA (cerebrovascular accident) Z86.73
--- OUTSIDE RECORDS SUMMARY | 2024-11-24 14:05 | XMS_ITS ---
Author Organization [facility] Address [address] [place] [address] Care Team Providers Care Food Photographer Name Role Phone Umm Mckeon Primary Care Provider Sivakumar Spears [phone] REASON FOR VISIT Painful nail(s) aggrevated by [...] Active Encounters Encounter Location Date Provider Diagnosis [facility] [address] [place] [address] 04/23/2024 Sivakumar Grullon Tinea unguium B35.1 ; [...] as necessary. Patient chooses, no pharmaceutical tx (10904) Progress Notes * Christin WOODSisDOB:06/1950 (74 yo M)Acc No.[id number]:04/23/2024 Progress Note Patient:?ROBINCARMITAChristin is Provider:?Sivakumar Grullon DPM :1950???Age:74 Y???Sex:Male Tomy e:04/23/2024 Address:[address] [place] [address], [address] [place], [place] [id number] Pcp:Umm Mckeon Subjective: * Chief Complaints: * [...] as necessary. Patient chooses, no pharmaceutical tx (94684).? * Procedure Codes:?09908 DEBRI DE NAIL, 6 OR MORE, Modifiers: XS * Images: * The named appointment provid er may or may not be the originator of this progress note, and it is not deemed complete until electronically signed by the appointment provider. Sign off status: Pending * Provider:?Sivakumar Grullon DPM Date:? 024 Generated for Sarah jones/Arsen/Donny on:?11/24/2024 02:05 PM EDT History and Physical Notes * HPI (History [...]
--- OUTSIDE RECORDS SUMMARY | 2024-11-24 14:05 | XMS_ITS | Clinical Summary ---
Author Organization [facility] Address [address] [place] [address] [place] [address] Phone Care Team Providers Care Biological Technical Officer Name Role Phone Umm Mckeon MD Primary Care Provider [phone] Allergies No known active allergies Medications amLODIPine [...] Due Date Last Done Comments Pneumococcal Vaccine: 50+ Ye ars (1 of 2 - PCV) 1968 Colorectal Cancer Screening: Annual FOBT 1998 Colorectal Cancer Screening: Colonoscopy 1998 Colorectal Cancer Screening: Sigmoidoscopy 1998 Influenza Vaccine (Season Ended) 2025 Hepatitis B Vaccine Aged Out No longe r eligible based on patient's age to complete this topic Insurance [facility] ([id number]) [facility] ([id number]) Care Teams Biological Technical Officer Relationship Specialty Start Date End Date Umm Mckeon MD [address] [place], [place] PCP - General 08/22/20
--- OUTSIDE RECORDS SUMMARY | 2024-11-24 14:05 | XMS_ITS ---
Author Organization [facility] Address [address] [place] [address] Care Team Providers Care Forensic Technician Name Role Phone Umm Mckeon Primary Care Provider Sivakumar Spears [phone] REASON FOR VISIT no show Encounters Encounter Location Date Provider Diagnosis [facility] [address] [place] [address] 04/23/2024 Sivakumar Grullon Plan Of Treatment No Information Progress Notes * Christin WOODSisDOB:06/1950 (74 yo M)Acc No.[id number]:04/23/2024 Patient:?Christin Woods :1950???Age:74 Y???Sex:Male Address:[address], [address], [place], [address] * true * Date:? Generated for Sarah jones/Arsen/eTransmitting on:?11/24/2024 02:05 PM EDT
--- OUTSIDE RECORDS SUMMARY | 2024-11-24 14:05 | XMS_ITS | Patient Health Record ---
Author Organization [facility] Address [address] [place] [address] Care Team Providers Care Shipping Specialist Name Role Phone Umm Mckeon Primary Care Provider Sivakumar Spears Unavailable [phone] Allergies No Known Allergies Reason For Referral No Information Medications Medication SIG (Take, Route, Frequency, Duration) Notes Start Date End Date Status Furosemide 20 MG 1 tablet Orally Once a day for 30 day(s) Active Extra Depth Diabetic Shoes with 3 Pair Custom heat-molded multi-density innersoles for 1 year Dx: 10/23/2023 Active Vitamin B12 Active Lisinopril 2.5 MG 1 tablet Orally Once a day for 30 day(s) Active Aspirin 81 MG 1 tablet Orally Once a day Active amLODIPine Besylate 10 MG 1 tablet Orall y Once a day for 30 day(s) Active Rosuvastatin Calcium 10 MG 1 tablet Oral ly Once a day for 30 day(s) Active Folic Acid 1 MG 1 tablet Orally Once a day for 30 day(s) Active Immunizations Vaccine Route Administration Date Status Comme nts Influenza Unknown 04/12/2023 Administered Social History Tobacco Use: Social History Observation [...] Polyneuropathy due to type 2 diabetes mellitus (210723869) Type 2 diabetes mellitus with diabetic polyneuropathy (E11.42) Active confirmed Encounters Encounter Location Date Provider Diagnosis [facility] [address] [place] [address] 04/23/2024 Sivakumar Grullon Plan Of Treatment Pending Test Test Name Order Date 15711-NYWF SKIN LESIONS, 2 TO 4 10/23/19 24 Insurance Providers Payer Name Payer Address Payer Phone Subscriber Number Group Number Insured Name Patient Relationship to Insured Coverage Start Date Coverage End Date [facility] CCA SCO Claims [address] [place] [id number] Rio Romo Self - patient is the insured Medical (General) History Medical History History ICD Code Diabetic Glaucoma Kidney disease Surgical History Surgery Date(Month/Year) Hospitalization History Reason Date(Month/Year) Ate Something bad and throwi ng up- kept patient due to balance issues 10/05
--- OUTSIDE RECORDS SUMMARY | 2024-11-24 14:05 | XMS_ITS | Data Portability ---
Author Organization [facility] Address [address] [place] [address] Care Team Providers Care Violin Tutor Name Role Phone [facility] Referring Provider Assessment Encounter Date Assessment Date Assessment LastModified by Organization Details LastModified Time 06/24/2023 06/24/2023 I have reviewed and agree with the assessment and plan as documented by the civil estimator. I provided real-time medical direction for this [...] Orders fluconazole 150 mg tablet 2022 023 [facility] #[id number], [address] [facility], [place], [address], 19:55:29 Patient TargetsNo targets recorded. Patient InstructionsNo [...] SNOMED-CT Code Diagnosis ICD10 Code Diagnosis Note 42097 Opal Kim MD Main - [facility] [address] [place] [address] 06/24/2023 19:48:32 06/25/2023 19:21:53 Candidiasis of skin [id number] B37.2 Health Concerns Section Related Observation LastModified by Organization Detai ls LastModified Time None Recorded Concern Status LastModified by Organization Details LastModified Time None Recorded Advance Directives Directive None Recorded Payers Encounter Date Sequence Insurance Name Policy Number Policy Leal Covered Member ID Leal Member ID Guarantor Name 06/24/2023 1 [facility] - DOS ON OR AFTER 2022 - DUAL ELIGIBLE - JAIL OPTIONS AND ONE CARE (MEDICARE REPLACEMENT/ADV ANTAGE - HMO) Rio Tafoya [id number] Rio Tafoya Notes Date Note Type Note Provider Name and Address Organization Details Recorded Time 06/24/2023 text/html [facility] Nursing Assessment: Chief Complaints: Pain PMH: Diabetes Allergies: No Known Comments: Member has a hernia in the groin - Left side - Redness - Denies fever/chills - Requesting wound care and a wellness check - Maldonado LOZANO .................. .................. .................. .................. .................. .................. .................. ............... Wildlife Veterinarian Note From Jayant Campos: Pt reports rash [...] sides of groin area, no genital involvement. [facility] contacted and sent rx to pharmacy. Pt/family instructed to f/u with PCP in the morning and to seek emergent medial care for new or worsening sx, which are reviewed with them. .................. .................. .................. .................. .................. .................. .................. ............... Disposition: Vanna Kim MD [address] [facility],[address], [place], [address], GUILLERMO PAREDES 06/24/2023 20:21:09
--- OUTSIDE RECORDS SUMMARY | 2024-11-24 14:06 | XMS_ITS ---
Author Organization [facility] Address [address] [facility] [place] [address] Care Team Providers Care Rubber Goods Tester Name Role Phone Umm Mckeon Primary Care Provider Sivakumar Spears Unavailable [phone] Allergies No Known Allergies REASON FOR VISIT [...] Polyneuropathy due to type 2 diabetes mellitus (780753135) Type 2 diabetes mellitus with diabetic polyneuropathy (E11.42) Active confirmed Vital Signs Height 5 ft 2 in in 10/23/2023 Weight 160 lbs 10/23/2023 BMI 29.26 kg/m2 10/23/2023 Procedures Procedure Date Ordered Date Performed Result Body Sit e 25560-SACU SKIN LESIONS, 2 TO 4 10/23/2023 N/A Encounters Encounter Location Date Provider Diagnosis [facility] [address] [address] 10/23/2023 Sivakumar Grullon Tinea unguium B35.1 ; [...] INSTRUCTIONS.pdf) Pending Test Test Name Order Date 16045-MEYI SKIN LESIONS, 2 TO 4 10/23/19 24 [...] as necessary. Patient chooses, no pharmaceutical tx (71071) Keratoma Treatment Parring or Cutting o f Benign Hyperkeratotic Lesion(s) 14830 ( 2-4 Lesions ) - The Benign hyperkeratotic lesions, as described above were pared, and/or cut utilizing a sterile 15 blade, tissue nippers, and/or dremel Progress Notes * Christin WOODSisDOB:06/1950 (73 yo M)Acc No.[id number]:10/23/2023 Progress Notes Patient:?Christin Woods is Provider:?Sivakumar Grullon DPM :1950???Age:73 Y???Sex:Male Tomy e:10/23/2023 Address:[address] [place] [address], [address], [facility] Pcp:Umm Mckeon Subjective: * Chief Complaints: * [...] taken. * Examination: ???Ophthalmology Referral: ?DIABETES EYE EXAM?Diabetic Retinopathy Screening:?No ?Findings of Diabetic Eye Exam:?no retinopathy?Nails: ?NAILS are:? Elongated, overgrown, dystrophic, lytic, greater [...] Examination: ?GENERAL APPEARANCE:? Pt accompanied by, Female, Pcb Design Engineer, Daughter, who serves as, Sewer Connector/Distribution Operation Supervisor, additional Historian.?FOOT EXAM:?Lower Extremity Neurological Exam performed:?Yes ?Visual exam of foot performed:?Yes ?Date?10/23/2023 ?Sensory testing performed:?sensations diminished ?Pedal pulse taking performed:?absent?Neuroma Pain: ?PALPATION:?No interspace pain noted on palpation.?Orthopedic: [...] as necessary. Patient chooses, no pharmaceutical tx (21828).?Keratoma Treatment:?Parring or Cutting of Benign Hyperkeratotic Lesion(s)?38137 ( 2-4 Lesions ) - The Benign hyperkeratotic lesions, as described above were pared, and/or cut utilizing a sterile 15 blade, tissue nippers, and/or dremel.? * Procedure Codes:?15886 DEBRI DE NAIL, 6 OR MORE, Modifiers: XS 33464 TRIM SKIN LESIONS, 2 TO 4, Modifiers: [...] footcare Pt States Last PCP Visit: Date: Foot Pain Onset/Cause: cva 2013 Course: worse [...] GENERAL APPEARANCE: Pt accom panied by, Female, Pcb Design Engineer, Daughter, who serves as, Sewer Connector/Distribution Operation Supervisor, additional Historian FOOT EXAM: Lower Extremity Neurological [...]
== END 2024-11-24 11:55 | disposition home or self-care (01) ==
LOC: HO.HCS 11:24
PROVIDERS: PCP Internal Medicine; Visit Provider Internal Medicine
DX: I25.10 Atherosclerotic heart disease of native coronary artery without angina pectoris (principal); I44.0 Atrioventricular block, first degree; I12.9 Hypertensive chronic kidney disease with stage 1 through stage 4 chronic kidney disease, or unspecified chronic kidney disease; E78.00 Pure hypercholesterolemia, unspecified; N18.4 Chronic kidney disease, stage 4 (severe); I25.2 Old myocardial infarction; Z86.73 Personal history of transient ischemic attack (TIA), and cerebral infarction without residual deficits
CPT/HCPCS: 99214; G2211

== ENCOUNTER → 2024-11-24 11:24 | Outpatient (BNVA) | payer OTHER, SELFPAY | PROVIDERS: PCP Internal Medicine; Visit Provider Internal Medicine | DX: I12.9 Hypertensive chronic kidney disease with stage 1 through stage 4 chronic kidney disease, or unspecified chronic kidney disease (principal); N18.4 Chronic kidney disease, stage 4 (severe); I25.10 Atherosclerotic heart disease of native coronary artery without angina pectoris; I44.0 Atrioventricular block, first degree; E78.00 Pure hypercholesterolemia, unspecified; I25.2 Old myocardial infarction; R00.1 Bradycardia, unspecified; Z86.73 Personal history of transient ischemic attack (TIA), and cerebral infarction without residual deficits | CPT/HCPCS: 99212 ==

== ENCOUNTER 2024-12-18 14:31 | Outpatient (AMB) | payer OTHER, SELFPAY ==
--- OUTSIDE RECORDS SUMMARY | 2024-12-18 14:33 | XMS_ITS | Patient Health Record ---
Author Organization [facility] Address [address] [facility] [address] [facility] [address] Care Team Providers Care Folding Machine Setter Name Role Phone Umm Mckeon Primary Care Provider Sivakumar Spears Unavailable [phone] Allergies No Known Allergies Reason For Referral [...] Polyneuropathy due to type 2 diabetes mellitus (215842779) Type 2 diabetes mellitus with diabetic polyneuropathy (E11.42) Active confirmed Encounters Encounter Location Date Provider Diagnosis [facility] [address] [place] [address] 04/23/2024 Sivakumar Grullon Plan Of Treatment Pending Test Test Name Order Date 32944-CFWQ SKIN LESIONS, 2 TO 4 10/23/19 24 Insurance Providers Payer Name Payer Address Payer Phone Subscriber Number Group Number Insured Name Patient Relationship to Insured Coverage Start Date Coverage End Date [facility] CCA SCO Claims [address] [place] [id number] Rio Romo Self - patient is the insured Medical (General) History Medical History History ICD Code Diabetic Glaucoma Kidney disease Surgical History Surgery Date(Month/Year) Hospitalization History Reason Date(Month/Year) Ate Something bad and throwi ng up- kept patient due to balance issues 10/05
--- OUTSIDE RECORDS SUMMARY | 2024-12-18 14:33 | XMS_ITS ---
Author Organization [facility] Address [address] [place] [address] Care Team Providers Care Casting Chipper Name Role Phone Umm Mckeon Primary Care Provider Sivakumar Spears [phone] REASON FOR VISIT no show Encounters Encounter Location Date Provider Diagnosis [facility] [address] [place] [address] 04/23/2024 Sivakumar Grullon Plan Of Treatment No Information Progress Notes * Christin WOODSisDOB:06/1950 (74 yo M)Acc No.[id number]:04/23/2024 Patient:?Christin Woods :1950???Age:74 Y???Sex:Male Address:[address] [facility], [address], [place], [address] * true * Date:? Generated for Sarah jones/Arsen/eTransmitting on:?12/18/2024 02:33 PM EDT
--- OUTSIDE RECORDS SUMMARY | 2024-12-18 14:33 | XMS_ITS ---
Author Organization [facility] Address [address] [place] [address] Care Team Providers Care Cherry Pitter Name Role Phone Umm Mckeon Primary Care Provider Sivakumar Spears [phone] REASON FOR VISIT Painful nail(s) aggrevated by [...] Active Encounters Encounter Location Date Provider Diagnosis [facility] [address] [place] [address] 04/23/2024 Sivakumar Grullon Tinea unguium B35.1 ; [...] as necessary. Patient chooses, no pharmaceutical tx (44496) Progress Notes * Christin WOODSisDOB:06/1950 (74 yo M)Acc No.[id number]:04/23/2024 Progress Note Patient:?ROBINCARIMTAChristin is Provider:?Sivakumar Grullon DPM :1950???Age:74 Y???Sex:Male Tomy e:04/23/2024 Address:[address] [place] [address], [address] [place], [place] [address] Pcp:Umm Mckeon Subjective: * Chief Complaints: * [...] as necessary. Patient chooses, no pharmaceutical tx (05296).? * Procedure Codes:?62370 DEBRI DE NAIL, 6 OR MORE, Modifiers: XS * Images: * The named appointment provid er may or may not be the originator of this progress note, and it is not deemed complete until electronically signed by the appointment provider. Sign off status: Pending * Provider:?Sivakumar Grullon DPM Date:? 024 Generated for Sarah jones/Arsen/Donny on:?12/18/2024 02:33 PM EDT History and Physical Notes * [...]
--- OUTSIDE RECORDS SUMMARY | 2024-12-18 14:33 | XMS_ITS ---
Author Organization [facility] Address [address] [place] [address] Care Team Providers Care Breeder Hen Service Technician Name Role Phone Umm Mckeon Primary Care Provider Sivakumar Spears Unavailable [phone] Allergies No Known Allergies REASON FOR VISIT [...] Problem Status W/U Status Risk Notes Problem Type 2 diabetes mellitus with diabetic polyneuropathy (E11.42) Active confirmed Vital Signs Height 5 ft 2 in in 10/23/2023 Weight 160 lbs 10/23/2023 BMI 29.26 kg/m2 10/23/2023 Procedures Procedure Date Ordered Date Performed Result Body Sit e 96772-NLEQ SKIN LESIONS, 2 TO 4 10/23/2023 N/A Encounters Encounter Location Date Provider Diagnosis [facility] [address] [address] 10/23/2023 Sivakumar Grullon Tinea unguium B35.1 ; [...] INSTRUCTIONS.pdf) Pending Test Test Name Order Date 12640-BHNO SKIN LESIONS, 2 TO 4 10/23/19 24 [...] as necessary. Patient chooses, no pharmaceutical tx (47821) Keratoma Treatment Parring or Cutting o f Benign Hyperkeratotic Lesion(s) 62066 ( 2-4 Lesions ) - The Benign hyperkeratotic lesions, as described above were pared, and/or cut utilizing a sterile 15 blade, tissue nippers, and/or dremel Progress Notes * Christin WOODSisDOB:06/1950 (73 yo M)Acc No.[id number]:10/23/2023 Progress Notes Patient:?Christin Woods is Provider:?Sivakumar Grullon DPM :1950???Age:73 Y???Sex:Male Tomy e:10/23/2023 Address:[address] [place] [address], [address], [facility] Pcp:Umm Mckeon Subjective: * Chief Complaints: * [...] Examination: ?GENERAL APPEARANCE:? Pt accompanied by, Female, Dental Appliance Fixer, Daughter, who serves as, Manager Transmission/Cooperage Shop Supervisor, additional Historian.?FOOT EXAM:?Lower Extremity Neurological Exam [...] as necessary. Patient chooses, no pharmaceutical tx ([id number]).?Keratoma Treatment:?Parring or Cutting of Benign Hyperkeratotic Lesion(s)?53446 ( 2-4 Lesions ) - The Benign hyperkeratotic lesions, as described above were pared, and/or cut utilizing a sterile 15 blade, tissue nippers, and/or dremel.? * Procedure Codes:?59279 DEBRI DE NAIL, 6 OR MORE, Modifiers: XS 62800 TRIM SKIN LESIONS, 2 TO 4, Modifiers: [...] GENERAL APPEARANCE: Pt accom panied by, Female, Dental Appliance Fixer, Daughter, who serves as, Manager Transmission/Cooperage Shop Supervisor, additional Historian FOOT EXAM: Lower Extremity [...]
--- OUTSIDE RECORDS SUMMARY | 2024-12-18 14:33 | XMS_ITS | Clinical Summary ---
Author Organization [facility] Address [address] [place] [address] [place] [address] Phone Care Team Providers Care Curtain Worker Name Role Phone Umm Mckeon MD Primary Care Provider [phone] Allergies No known active allergies Medications amLODIPine [...] patient's age to complete this topic Insurance [facility] ([id number]) [facility] ([id number]) Care Teams Curtain Worker Relationship Specialty Start Date End Date Umm Mckeon MD [address] [place], [place] PCP - General 08/22/20
--- NOTE | 2024-12-18 14:46 | MHC.PC.OV ---
Vital Signs 12/18/24 14:48 Height 5 ft 2 in Weight 170 lb 3.15 oz BMI 31.1 BP 126/58 L Blood Pressure Location Lt brachial Position Sitting Pulse 58 Pulse Source Pulse Oximeter Temp 97.3 F Temp Source Temporal Artery Scan Pulse Oximetry (%) 100 Oxygen Delivery Method Room Air Intake Visit Reasons: Annual Exam Intake Note: Patient is here today for a physical. Rehab F/U due to a fall-[facility]. Instructional Facilitator Required: Yes Instructional Facilitator Language: Estonian Accompanied by: Daughter Allergies No Known Allergies Allergy (Verified 12/18/24 14:55) Medication List - Last Reconciled 12/18/24 by Umm Mckeon MD [adult incontinence wipes As directed] [adult pull ups As directed] [AFO prosthetic As directed] aspirin (Adult Low Dose Aspirin) 81 mg PO DAILY blood pressure monitor (Blood Pressure Kit) As directed blood sugar diagnostic (FreeStyle Lite Strips) As directed check the BS QD calcitriol 0.25 mcg PO MOTUWETHFR@0900 cholecalciferol (vitamin D3) 50 mcg PO DAILY cyanocobalamin (vitamin B-12) 1,000 mcg PO DAILY disposable gloves As directed lidocaine 4% 1 patch topical DAILY PRN rosuvastatin 10 mg PO BEDTIME walker As directed [washable bedpads As directed] Tobacco use date assessed: 09/03/24 Fall risk assessment: 1 Fall in past year Last assessed Fall Risk: 12/18/24 Dental Screening Dental Screen Date: 09/03/24 HPI Annual Exam HPI Details [facility] interpret. nephrology Patient is now home 12/09/2024 . was sent to [place] for frequent fall and rehab. [facility] Medical History (Updated 12/18/24 @ 15:37 by Umm Mckeon MD) Colon cancer screening Rib pain on left side Status post fall Rash of groin Blister of foot, right Atherosclerotic cardiovascular disease Coronary artery disease Umbilical hernia Right inguinal hernia History of TN (myocardial infarction) CKD (chronic kidney disease) stage 4, GFR 15-29 ml/min Thrombocytopenia Vitamin D deficiency History of CVA (cerebrovascular accident) Hypertension Hypercholesterolemia Type 2 diabetes mellitus with hyperglycemia Surgical History No pertinent past surgical history Family History Father Heart disease Mother No problems noted. Social History Housing: House Alcohol intake: former Patient Tobacco Use Status: Never used Tobacco e-Cigarette/Vaping Use: Never Used Second Hand Smoke Exposure: No Advance Directives Date on File: 04/20/22 service: No Current occupational status: retired Cognitive needs: Yes (wheel chair ) Hearing needs: No Vision needs: No Questionnaire PHQ-9 Over the last 2 weeks, how often have you been bothered by any of the following problems? 1. Little interest or pleasure in doing things: not at all 2. Feeling down, depressed, or hopeless: not at all 3. Trouble falling or staying asleep, or sleeping too much: several days 4. Feeling tired or having little energy: not at all 5. Poor appetite or overeating: not at all 6. Feeling bad about yourself - or that you are a failure or have let yourself or your family down: not at all 7. Trouble concentrating on things, such as reading the newspaper or watching television: not at all 8. Moving or speaking so slowly that other people could have noticed. Or the opposite - being so fidgety or restless that you have been moving around a lot more than usual: not at all 9. Thoughts that you would be better off or of hurting yourself in some way: not at all Total score: 1 Source: Developed by Drs. Anoop Hartmann, Aubrie Eli, Corbin Shukla and colleagues, with an educational dalia from [employer]. Thrive Questionnaire Date Thrive assessed: 09/03/24 I am a: Patient What is your living situation today?: I have a steady place to live Within the past 12 months, did the food you bought not last and you didn't have the money to get more?: Never true Within the past 12 months, did you worry whether your food would run out before you got money to buy more?: Never true Do you have trouble paying for medicines?: No Do you have trouble getting transportation to medical appointments?: No Do you have trouble paying your heating and electricity bill?: No Do you have trouble taking care of your child, family member or friend?: No Do you have trouble with day-to-day activities such as bathing, preparing meals, shopping, managing finances, etc.?: Yes Are you currently unemployed and looking for a job?: Yes Are you interested in more education?: Yes Please select the resources that you would like help with: None Currently or been in a relationship where the following occur: I choose not to answer THRIVE Score: 0 AUDIT C Alcohol Use Questionnaire (AUDIT-C) 1. How often do you have a drink containing alcohol?: Never Total Score: 0 ROSEMARY-7 AMB Questionnaire ROSEMARY-7 Date ROSEMARY - 7 assessed: 09/03/24 Feeling nervous, anxious, or on edge: 0 = Not at all Not being able to stop or control worryin = Not at all Worrying too much about different things: 0 = Not at all Trouble relaxin = Not at all Being so restless that it is hard to sit still: 0 = Not at all Becoming easily annoyed or irritable: 0 = Not at all Feeling afraid as if something awful might happen: 0 = Not at all Total ROSEMARY-7 score (0-4 normal; 5-9 mild; 10-14 moderate; 15-21 severe): 0 Source: Developed by Drs. Anoop Hartmann, Aubrie Eli, Corbin Shukla and colleagues, with an educational dalia from [employer]. Review of Systems Const Denies poor appetite and Denies weakness Eyes Denies no additional complaints ENT Reports Normal hearing present, Denies dizziness, Denies nasal congestion, Denies tinnitus and Denies sore throat Card Denies chest pain, Denies syncope, Denies rapid heart rate and Denies dyspnea Resp Denies cough and Denies dyspnea GI Denies change in stool character, Reports constipation, Denies diarrhea, Denies nausea and Denies vomiting Denies dysuria and Denies urinary frequency Neuro Reports Normal hearing present, Denies confusion, Denies dizziness, Denies syncope and Denies weakness Psych Denies confusion Physical exam (Primary Care) Vital Signs: Last Vital Signs Temp 97.3 F 12/18/24 14:48 Pulse 58 12/18/24 14:48 BP 126/58 L 12/18/24 14:48 Pulse Ox 100 12/18/24 14:48 Oxygen Delivery Method Room Air 12/18/24 14:48 BMI result Body Mass Index 31.1 Tobacco/Smoking Status: Tobacco use Status Tobacco use date assessed 09/03/24 12/18/24 14:46 Patient Tobacco Use Status Never used Tobacco 12/18/24 14:46 e-Cigarette/Vaping Use Never Used 12/18/24 14:46 PHQ-9: PHQ-9 Score PHQ-9: Total score 1 12/18/24 15:18 Thrive Assessment: Date of Thrive Assessment Date Thrive assessed 09/03/24 12/18/24 14:46 Currently or been in a relationship where the following occur: I choose not to answer Const Other: Wheelchair General: alert and awake; No confusion Orientation/consciousness: No confusion HENMT Head: Yes normocephalic Ears: external ears normal and TM's normal bilaterally Face and sinus: Yes normal facial exam Mouth: moist mucous membranes Throat: Yes tonsils normal Eyes Conjunctivae: conjunctivae normal Pupils: Pupil accommodation reflex normal Direct Ophthalmoscopy: normal light reflex Neck Neck: No lymphadenopathy Thyroid: Thyroid normal Chest Chest palpation & inspection: normal inspection of the chest Resp Effort & Inspection: normal respiratory effort and no audible wheezes Auscultation: clear to auscultation bilaterally, no crackles, no wheezes and lung sounds not diminished Cardio Rate: regular rate Rhythm: regular rhythm Peripheral pulses: radial pulses present and dorsalis pedis present GI Other: guaiac neg, prostate N Palpation (GI): no masses Auscultation: normal bowel sounds and normoactive bowel sounds Skin General skin exam: no rashes or lesions noted Rashes: no rashes Neuro General: No confusion Cranial nerves: Yes Normal hearing present Extrem Other: Left leg 4/5 R = 5/5, LUE 4/5 RUE 5/5 Coding Level of Care Code Est Pt Prev Care >65y(64230) Diagnoses Annual physical exam Z00.00 Type 2 diabetes mellitus with hyperglycemia, without long-term current use of insulin E11.65 Diabetes mellitus long term care social worker insulin use: without long term care social worker use Essential hypertension I10 Hypertension type: essential hypertension Hypercholesterolemia E78.00 CKD (chronic kidney disease) stage 4, GFR 15-29 ml/min N18.4 History of CVA (cerebrovascular accident) Z86.73 Atherosclerotic cardiovascular disease I25.10 Colon cancer screening Z12.11 Assessment & Plan Assessment & Plan (1) Annual physical exam: Code(s): Z00.00 - Encounter for general adult medical examination without abnormal findings Category: Medical Plan: Patient is advised to eat healthy, keep well hydrated, keep active and have adequate sleep. (2) Type 2 diabetes mellitus with hyperglycemia: Code(s): E11.65 - Type 2 diabetes mellitus with hyperglycemia Category: Medical Qualifiers: Diabetes mellitus alf insulin use: without long term care social worker use Qualified Code(s): E11.65 - Type 2 diabetes mellitus with hyperglycemia Plan: Decrease the amount of carbohydrate intake, pasta, bread, rice and potatoes are all sugar and that is aside from all the sweet stuff, remember that fruits are good but they are Sweet also. Hemoglobin A1c goal of less than 7.0 patient patient is diet controlled (3) Hypertension: Code(s): I10 - Essential (primary) hypertension Category: Medical Qualifiers: Hypertension type: essential hypertension Qualified Code(s): I10 - Essential (primary) hypertension Plan: Continue with blood pressure medication. Decrease salt intake and exercise patient's blood pressure has been within normal limits and so was taken off blood pressure medication (4) Hypercholesterolemia: Code(s): E78.00 - Pure hypercholesterolemia, unspecified Category: Medical Plan: Avoid fried foods, chicken skin, eggs, butter margarine, pastries and meat. Be it pork or beef they have a lot of cholesterol on rosuvastatin LDL goal of less than 70 and triglyceride of less than 150 (5) CKD (chronic kidney disease) stage 4, GFR 15-29 ml/min: Code(s): N18.4 - Chronic kidney disease, stage 4 (severe) Category: Medical Plan: Keep well hydrated avoid NSAIDs follow-up with Nephrology (6) History of CVA (cerebrovascular accident): Comment: Left-sided weakness April 2009 Code(s): Z86.73 - Personal history of transient ischemic attack (TIA), and cerebral infarction without residual deficits Category: Medical Plan: Control the cholesterol, weight, blood pressure, diabetes (7) Atherosclerotic cardiovascular disease: Code(s): I25.10 - Atherosclerotic heart disease of creek coronary artery without angina pectoris Category: Medical Plan: Control the cholesterol, weight, blood pressure, diabetes on aspirin 81 mg once a day (8) Colon cancer screening: Code(s): Z12.11 - Encounter for screening for malignant neoplasm of colon Category: Medical Plan History of Present Illness The patient is a 74-year-old male presenting for an annual physical exam and well visit. He has a significant history of cerebrovascular accident (CVA) resulting in left-sided weakness. Other chronic conditions include diabetes mellitus, controlled by diet with A1c at 6.2%, hypertension which is currently managed without medication, and hypercholesterolemia treated with rosuvastatin. He also has chronic kidney disease and a history of myocardial infarction/coronary artery disease for which he takes aspirin. He experienced falls in August which resulted in an emergency room visit, but a CT scan showed no acute intracranial events. Currently, he is being monitored at home to prevent further falls. In 2021, cardiac evaluation showed normal left ventricular function and mild ischemia, with a negative notable significant valvular disease. He shows signs of early dementia, primarily with memory challenges, though remains communicative. Health Maintenance - Diabetes management with a goal hemoglobin A1c less than 7.0% - Hypertension managed with lifestyle modifications; medication not currently required - Hyperlipidemia managed with rosuvastatin, targeting LDL less than 70 mg/dL - Aspirin therapy for coronary artery disease at 81 mg daily - Preventative recommendations include avoiding NSAIDs and maintaining hydration to protect renal function - Vaccines up to date; recommended shingles vaccine available in the pharmacy - Colon cancer screening offered with at-home stool DNA testing Social History - Housing: Recently discharged from intermediate due to fall risk; resides at home with / supervision - Functional status: Limited mobility due to left-sided weakness post-CVA; uses a wheelchair - Exercise: Required for rehabilitation and improving mobility - Cognitive function: Early signs of dementia observed; assistive supervision in place Review of Systems - Neurological: Denies change in consciousness; reports occasional forgetfulness - Cardiovascular: Denies chest pain or shortness of breath - Respiratory: Denies coughing or dyspnea - Gastrointestinal: Denies changes in bowel habits; denies presence of blood in stools - Genitourinary: Denies dysuria - Musculoskeletal: Reports left-sided weakness; denies new joint pain - No alcohol use reported Physical Exam General: Cooperative, healthy appearing, comfortable, no acute distress and well developed Orientation: Patient oriented x3, but starting some dementia Limitations: Patient on a wheelchair Head: Normal to inspection Ears: Hearing grossly normal bilaterally Nose: Normal external nose present Face and sinus: Normal facial exam Eyes: Appearance normal, both eyes and all related structures, but patient has problems with eyesight and is barely able to see Neck: Normal visual inspection and Yes full ROM Respiratory: Normal respiratory effort and able to speak in complete sentences. Clear to auscultation bilaterally Cardiovascular: Regular rate and rhythm. Normal S1 and S2 GI: Normal to inspection. Soft to palpation and nontender. No blood in stools Skin: No rashes or lesions noted Neuro: Patient oriented x3, but starting some dementia Extremities: Normal to inspection, but patient has left-sided weakness due to history of CVA. Some improvement in movement noted. Results - Labs: Hemoglobin 11 g/dL, Creatinine 1.8 mg/dL, LDL 58 mg/dL - Imaging: CT scan of head showed no acute intracranial findings - Cardiac: 2021 echocardiogram with normal LVEF, moderate diastolic dysfunction, and mild inferolateral ischemia Plan 1. 0%, utilizing a diet-centered approach. Current hypertension status remains medication-free with continued monitoring. Rosuvastatin is implemented to manage hypercholesterolemia, ensuring LDL levels are below 70 mg/dL. The patient's cardiovascular disease is addressed with daily low-dose aspirin. An emphasis on fall prevention is maintained with supervision at home, alongside rehabilitation exercises. Cognitive evaluations are considered to monitor early dementia symptoms, and hydration strategies are important for renal preservation. Non-invasive colon cancer screening via stool DNA kit is pursued. The patient's vaccines are mostly current, with shingles immunization recommended.: Patient was informed and verbally consented to the use of an ambient scribe for clinic note documentation during this visit. Discussion Notes I explained to the patient that his hypertension seems controlled with diet alone, thus no medication is needed at present. I discussed the continuation of rosuvastatin for lipid management with a target LDL below 70 mg/dL and emphasized adherence to the current regimen. Regarding diabetes, maintaining a hemoglobin A1c below 7.0% through dietary control was prioritized, and his current level of 6.2% is considered satisfactory. We reviewed fall risk management with family involvement, emphasizing the importance of monitoring and supervised mobility. Cognitive decline was addressed with early dementia identification, and further assessment will be discussed if necessary. The options for colon cancer screening were explained, and the patient opted for a non-invasive stool test, with understanding of home sample collection. Vaccination history was reviewed, with encouragement to obtain the shingles vaccine. Follow-up plans include re-evaluating these management strategies in three months, contingent upon completion of blood work and further cognitive assessment. Patient Instructions - Continue diabetes management with diet. - Monitor blood pressure at home; no medication needed currently. - Take rosuvastatin as prescribed. - Maintain supervision at home to prevent falls. - Obtain shingles vaccine at the pharmacy. - Follow instruction for at-home colon cancer screening test. - Attend follow-up appointment in three months with completed lab work and any new concerns. - Stay hydrated and avoid NSAID medications. - Keep up with regular exercise and physical therapy for mobility improvement. Orders: Orders Microalbumin, Random (w Creat) Today E11.65 - Type 2 diabetes mellitus with hyperglycemia Lipid Panel Today E11.65 - Type 2 diabetes mellitus with hyperglycemia, E78.00 - Pure hypercholesterolemia, unspecified Thyroid Stimulating Hormone Today E11.65 - Type 2 diabetes mellitus with hyperglycemia Hemoglobin A1c Today E11.65 - Type 2 diabetes mellitus with hyperglycemia Complete Blood Count Auto Diff Today E11.65 - Type 2 diabetes mellitus with hyperglycemia Comprehensive Met. Panel Today E11.65 - Type 2 diabetes mellitus with hyperglycemia Creatinine Urine Today E11.65 - Type 2 diabetes mellitus with hyperglycemia Free T4 (Free Thyroxine) Today E11.65 - Type 2 diabetes mellitus with hyperglycemia Vitamin B12 and Folate Today E11.65 - Type 2 diabetes mellitus with hyperglycemia Referrals Podiatry Referral E11.65 - Type 2 diabetes mellitus with hyperglycemia Ophthalmology Referral E11.65 - Type 2 diabetes mellitus with hyperglycemia Cologuard Test Z12.11 - Encounter for screening for malignant neoplasm of colon
[2024-12-18 14:48] VITALS: BP 126/58; PULSE 58; TEMP 36.3; O2SAT 100; BMI 31.1
== END 2024-12-18 15:43 | disposition home or self-care (01) ==
LOC: HO.HMCH 14:32
PROVIDERS: PCP Internal Medicine; Visit Provider Internal Medicine
DX: Z00.00 Encounter for general adult medical examination without abnormal findings (principal); I12.9 Hypertensive chronic kidney disease with stage 1 through stage 4 chronic kidney disease, or unspecified chronic kidney disease; N18.4 Chronic kidney disease, stage 4 (severe); E11.65 Type 2 diabetes mellitus with hyperglycemia; E78.00 Pure hypercholesterolemia, unspecified; Z86.73 Personal history of transient ischemic attack (TIA), and cerebral infarction without residual deficits; I25.10 Atherosclerotic heart disease of native coronary artery without angina pectoris; Z12.11 Encounter for screening for malignant neoplasm of colon

== ENCOUNTER → 2024-12-18 14:31 | Outpatient (BNVA) | payer OTHER, SELFPAY | PROVIDERS: PCP Internal Medicine; Visit Provider Internal Medicine | DX: Z00.00 Encounter for general adult medical examination without abnormal findings (principal); E11.65 Type 2 diabetes mellitus with hyperglycemia; E78.00 Pure hypercholesterolemia, unspecified; I25.10 Atherosclerotic heart disease of native coronary artery without angina pectoris; I69.354 Hemiplegia and hemiparesis following cerebral infarction affecting left non-dominant side; I12.9 Hypertensive chronic kidney disease with stage 1 through stage 4 chronic kidney disease, or unspecified chronic kidney disease; N18.4 Chronic kidney disease, stage 4 (severe); I25.2 Old myocardial infarction; Z79.899 Other long term (current) drug therapy | CPT/HCPCS: 96127; 99397 ==

== ENCOUNTER 2025-04-29 14:22 | Outpatient (AMB) | payer OTHER, SELFPAY ==
--- NOTE | 2025-04-29 14:27 | MHC.PC.OV ---
Vital Signs 04/29/25 14:28 Height 5 ft 2 in BMI Reason not done Patient refused/unable BP 128/60 Blood Pressure Location Rt brachial Position Sitting Pulse 59 Pulse Source Pulse Oximeter Temp 97.0 F Temp Source Temporal Artery Scan Pulse Oximetry (%) 99 Oxygen Delivery Method Room Air Intake Visit Reasons: DM , CVA Manager Alliance Required: Yes Manager Alliance Language: [place] Accompanied by: Daughter Allergies No Known Allergies Allergy (Verified 04/29/25 14:33) Tobacco use date assessed: 04/29/25 Fall risk assessment: 1 Fall in past year Last assessed Fall Risk: 04/29/25 Dental Screening Dental Screen Date: 04/29/25 Did you have a dental visit in the last 12 months?: No Did you have a dental problem in the last 6 months where you did not have access to dental care?: No Was dental information given to patient?: No HPI DM , CVA HPI Details kyrgyz interpret karin [id number] [facility] Medical History (Updated 04/29/25 @ 15:23 by Umm Mckeon MD) Colon cancer screening Rib pain on left side Status post fall Rash of groin Blister of foot, right Atherosclerotic cardiovascular disease Coronary artery disease Umbilical hernia Right inguinal hernia History of IN (myocardial infarction) CKD (chronic kidney disease) stage 4, GFR 15-29 ml/min Thrombocytopenia Vitamin D deficiency History of CVA (cerebrovascular accident) Hypertension Hypercholesterolemia Type 2 diabetes mellitus with hyperglycemia Surgical History No pertinent past surgical history Family History Father Heart disease Mother No problems noted. Social History Housing: House Alcohol intake: former Patient Tobacco Use Status: Never used Tobacco e-Cigarette/Vaping Use: Never Used Second Hand Smoke Exposure: No Advance Directives Date on File: 04/20/22 service: No Current occupational status: retired Cognitive needs: Yes (wheel chair ) Hearing needs: No Vision needs: No Questionnaire PHQ-9 Over the last 2 weeks, how often have you been bothered by any of the following problems? 1. Little interest or pleasure in doing things: not at all 2. Feeling down, depressed, or hopeless: not at all 3. Trouble falling or staying asleep, or sleeping too much: several days 4. Feeling tired or having little energy: not at all 5. Poor appetite or overeating: not at all 6. Feeling bad about yourself - or that you are a failure or have let yourself or your family down: not at all 7. Trouble concentrating on things, such as reading the newspaper or watching television: not at all 8. Moving or speaking so slowly that other people could have noticed. Or the opposite - being so fidgety or restless that you have been moving around a lot more than usual: not at all 9. Thoughts that you would be better off or of hurting yourself in some way: not at all Total score: 1 Source: Developed by Drs. Anoop Hartmann, Aubrie Eli, Corbin Shukla and colleagues, with an educational dalia from [employer]. Thrive Questionnaire Date Thrive assessed: 12/18/24 I am a: Patient What is your living situation today?: I have a steady place to live Within the past 12 months, did the food you bought not last and you didn't have the money to get more?: Never true Within the past 12 months, did you worry whether your food would run out before you got money to buy more?: Never true Do you have trouble paying for medicines?: No Do you have trouble getting transportation to medical appointments?: No Do you have trouble paying your heating and electricity bill?: No Do you have trouble taking care of your child, family member or friend?: No Do you have trouble with day-to-day activities such as bathing, preparing meals, shopping, managing finances, etc.?: Yes Are you currently unemployed and looking for a job?: Yes Are you interested in more education?: Yes Please select the resources that you would like help with: None Currently or been in a relationship where the following occur: I choose not to answer THRIVE Score: 0 AUDIT C Alcohol Use Questionnaire (AUDIT-C) 1. How often do you have a drink containing alcohol?: Never 3. How often do you have six or more drinks on one occasion?: Never Total Score: 0 ROSEMARY-7 AMB Questionnaire ROSEMARY-7 Date ROSEMARY - 7 assessed: 09/03/24 Feeling nervous, anxious, or on edge: 0 = Not at all Not being able to stop or control worryin = Not at all Worrying too much about different things: 0 = Not at all Trouble relaxin = Not at all Being so restless that it is hard to sit still: 0 = Not at all Becoming easily annoyed or irritable: 0 = Not at all Feeling afraid as if something awful might happen: 0 = Not at all Total ROSEMARY-7 score (0-4 normal; 5-9 mild; 10-14 moderate; 15-21 severe): 0 Source: Developed by Drs. Anoop Hartmann, Aubrie Eli, Corbin Shukla and colleagues, with an educational dalia from [employer]. Physical exam (Primary Care) Vital Signs: Last Vital Signs Temp 97.0 F 04/29/25 14:28 Pulse 59 04/29/25 14:28 BP 128/60 04/29/25 14:28 Pulse Ox 99 04/29/25 14:28 Oxygen Delivery Method Room Air 04/29/25 14:28 Tobacco/Smoking Status: Tobacco use Status Tobacco use date assessed 04/29/25 04/29/25 14:34 Patient Tobacco Use Status Never used Tobacco 04/29/25 14:34 e-Cigarette/Vaping Use Never Used 04/29/25 14:34 PHQ-9: PHQ-9 Score PHQ-9: Total score 1 04/29/25 15:07 Thrive Assessment: Date of Thrive Assessment Date Thrive assessed 12/18/24 04/29/25 14:34 Currently or been in a relationship where the following occur: I choose not to answer Const General: alert; No acute distress Eyes Conjunctivae: conjunctivae normal Resp Auscultation: clear to auscultation bilaterally Cardio Rate: regular rate Rhythm: regular rhythm GI Other: very large inguinal hernia Results AMB Hemoglobin A1c AMB Hemoglobin A1c 5.7 % Last Edit by Alda Nguyen CMA on 04/29/25 14:37 Results Reviewed Results Reviewed: Laboratory Last Values Hgb A1c (Clinic) 5.7 % (4.0-6.0) 04/29/25 14:34 Coding Level of Care Code Est Pt Level 4 (04424) Complex EM visit Add On G2211 Diagnoses Atherosclerotic cardiovascular disease I25.10 Essential hypertension I10 Hypertension type: essential hypertension Hypercholesterolemia E78.00 Type 2 diabetes mellitus with hyperglycemia, without long-term current use of insulin E11.65 Diabetes mellitus detention insulin use: without watermaster use CKD (chronic kidney disease) stage 4, GFR 15-29 ml/min N18.4 History of CVA (cerebrovascular accident) Z86.73 Right inguinal hernia K40.90 Assessment & Plan Assessment & Plan (1) Atherosclerotic cardiovascular disease: Code(s): I25.10 - Atherosclerotic heart disease of [place] coronary artery without angina pectoris Category: Medical Plan: Control the cholesterol, weight, blood pressure, diabetes patient on aspirin 81 mg once a (2) Hypertension: Code(s): I10 - Essential (primary) hypertension Category: Medical Qualifiers: Hypertension type: essential hypertension Qualified Code(s): I10 - Essential (primary) hypertension Plan: Continue with blood pressure medication. Decrease salt intake and exercise patient on no blood pressure medication (3) Hypercholesterolemia: Code(s): E78.00 - Pure hypercholesterolemia, unspecified Category: Medical Plan: Avoid fried foods, chicken skin, eggs, butter margarine, pastries and meat. Be it pork or beef they have a lot of cholesterol LDL goal of less than 70 and triglyceride of less than 150 on rosuvastatin 10 mg at bedtime (4) Type 2 diabetes mellitus with hyperglycemia: Code(s): E11.65 - Type 2 diabetes mellitus with hyperglycemia Category: Medical Qualifiers: Diabetes mellitus watermaster insulin use: without detention use Qualified Code(s): E11.65 - Type 2 diabetes mellitus with hyperglycemia Plan: Decrease the amount of carbohydrate intake, pasta, bread, rice and potatoes are all sugar and that is aside from all the sweet stuff, remember that fruits are good but they are Sweet also. Hemoglobin A1c goal of less than 7.0. Patient is under control (5) CKD (chronic kidney disease) stage 4, GFR 15-29 ml/min: Code(s): N18.4 - Chronic kidney disease, stage 4 (severe) Category: Medical Plan: Keep well hydrated advised repeat blood work (6) History of CVA (cerebrovascular accident): Comment: Left-sided weakness April 2009 Code(s): Z86.73 - Personal history of transient ischemic attack (TIA), and cerebral infarction without residual deficits Category: Medical Plan: Control the cholesterol, weight, blood pressure, diabetes on aspirin (7) Right inguinal hernia: Comment: LARGE Code(s): K40.90 - Unilateral inguinal hernia, without obstruction or gangrene, not specified as recurrent Category: Medical Plan: large inguinal hernia but was told risky for surgery. Plan History of Present Illness The patient is a 75-year-old male presenting with management of chronic conditions including diabetes mellitus, hypercholesterolemia, hypertension, and chronic kidney disease. The patient has a history of a cerebrovascular accident resulting in left-sided weakness and a left foot drop. He also has coronary artery disease and anemia of chronic disease, with renal function noted at 1.8 in August. The patient was last seen in December 2024 and had blood work in August showing anemia of chronic disease. His cholesterol was last tested in January 2024, and he is currently on rosuvastatin 10 mg at bedtime with an LDL goal of less than 70 and triglycerides less than 150. The patient has a right inguinal hernia, which is large and poses a surgical risk due to his multiple comorbidities. The hernia causes the intestines to fall into the groin area, and surgery has been deemed risky by the surgeon. The patient experiences occasional pain from the hernia, and a referral to [facility] surgery has been made for further evaluation. Health Maintenance - Vaccinations: Shingles vaccine recommended, flu shot in May, COVID-19 vaccine available at pharmacy Social History - Housing: Patient was previously in a fdc and is now living with family, requiring assistance from a clinical social work therapist for care management. Review of Systems - Neurological: Reports left-sided weakness and left foot drop. Denies other neurological symptoms. - Gastrointestinal: Reports occasional pain from right inguinal hernia. Denies other gastrointestinal symptoms. Physical Exam Results - Labs: Anemia of chronic disease noted in August blood work, renal function at 1.8 - Cholesterol: Last tested in January 2024 Plan Patient was informed and verbally consented to the use of an ambient scribe for clinic note documentation during this visit. 1. Diabetes Mellitus The patient's diabetes mellitus is currently under control with a hemoglobin A1c goal of less than 7.0. It is advised to maintain hydration and repeat blood work to monitor the condition. 2. Hypercholesterolemia The patient is on rosuvastatin 10 mg at bedtime with an LDL cholesterol goal of less than 70 mg/dL and triglycerides less than 150 mg/dL. 3. Hypertension The patient is not currently on any blood pressure medication, and blood pressure management needs to be addressed. 4. Chronic Kidney Disease The patient's renal function was noted at 1.8, indicating the need for ongoing monitoring and management of chronic kidney disease. 5. Cerebrovascular Accident With Left-Sided Weakness The patient has a history of cerebrovascular accident with resultant left-sided weakness and left foot drop, requiring ongoing management and monitoring. 6. Coronary Artery Disease The patient is on aspirin 81 mg once a day as part of the management plan for coronary artery disease. 7. Right Inguinal Hernia The patient has a large right inguinal hernia, which poses a surgical risk due to multiple comorbidities. A referral to [facility] surgery has been made for further evaluation. Discussion Notes I discussed with the patient the management of his chronic conditions, including diabetes, hypercholesterolemia, and hypertension. We reviewed the risks and benefits of continuing his current medications, including rosuvastatin and aspirin. I also explained the surgical risks associated with his right inguinal hernia and the referral to [facility] surgery for further evaluation. We discussed the importance of maintaining hydration and repeating blood work to monitor his conditions. I advised on the availability of vaccinations, including the shingles and flu shots, and the COVID-19 vaccine at the pharmacy. Patient Instructions - Continue taking rosuvastatin 10 mg at bedtime and aspirin 81 mg daily. - Maintain hydration and schedule repeat blood work as advised. - Follow up with [facility] surgery for evaluation of the right inguinal hernia. - Consider getting the shingles vaccine, flu shot in May, and COVID-19 vaccine at the pharmacy. Orders: Orders AMB Hemoglobin A1c Today Z13.9 - Encounter for screening, unspecified Parathyroid Hormone Intact Today D63.1 - Anemia in chronic kidney disease, N18.4 - Chronic kidney disease, stage 4 (severe), N25.81 - Secondary hyperparathyroidism of renal origin Phosphorus Today N18.4 - Chronic kidney disease, stage 4 (severe) Referrals General Surgery Referral K40.90 - Unilateral inguinal hernia, without obstruction or gangrene, not specified as recurrent
[2025-04-29 14:28] VITALS: BP 128/60; PULSE 59; TEMP 36.1; O2SAT 99
--- OUTSIDE RECORDS SUMMARY | 2025-04-29 16:10 | XMS_ITS | Clinical Summary ---
Author Organization [facility] Address [address] [place] [address] [place] [address] Phone Care Team Providers Care Conservation Worker Name Role Phone Umm Mckeon MD Primary Care Provider [phone] Allergies No known active allergies Medications amLODIPine [...] ars (1 of 2 - PCV) 1969 Influenza Vaccine (#1) 2025 Hepatitis B Vaccine Aged Out No longe r eligible based on patient's age to complete this topic Insurance * Guarantor: [employer] Account Type Relation to Patient Date of Phone Billing Address Personal/Family Self 1950 [address] ([id number]) [place] [id number] [facility] ([id number]) Care Teams Conservation Worker Relationship Specialty Start Date End Date Umm Mckeon MD [facility] [address] [place], [place] PCP - General 08/22/20
== END 2025-04-29 15:39 | disposition home or self-care (01) ==
LOC: HO.HMCH 14:24
PROVIDERS: PCP Internal Medicine; Visit Provider Internal Medicine
DX: I12.9 Hypertensive chronic kidney disease with stage 1 through stage 4 chronic kidney disease, or unspecified chronic kidney disease (principal); E11.65 Type 2 diabetes mellitus with hyperglycemia; N18.4 Chronic kidney disease, stage 4 (severe); I25.10 Atherosclerotic heart disease of native coronary artery without angina pectoris; E78.00 Pure hypercholesterolemia, unspecified; Z86.73 Personal history of transient ischemic attack (TIA), and cerebral infarction without residual deficits; K40.90 Unilateral inguinal hernia, without obstruction or gangrene, not specified as recurrent

== ENCOUNTER → 2025-04-29 14:22 | Outpatient (BNVA) | payer OTHER, SELFPAY | PROVIDERS: PCP Internal Medicine; Visit Provider Internal Medicine | DX: I25.10 Atherosclerotic heart disease of native coronary artery without angina pectoris (principal); E78.00 Pure hypercholesterolemia, unspecified; E11.65 Type 2 diabetes mellitus with hyperglycemia; K40.90 Unilateral inguinal hernia, without obstruction or gangrene, not specified as recurrent; E11.22 Type 2 diabetes mellitus with diabetic chronic kidney disease; I12.9 Hypertensive chronic kidney disease with stage 1 through stage 4 chronic kidney disease, or unspecified chronic kidney disease; N18.4 Chronic kidney disease, stage 4 (severe); D63.1 Anemia in chronic kidney disease; N25.81 Secondary hyperparathyroidism of renal origin; Z86.73 Personal history of transient ischemic attack (TIA), and cerebral infarction without residual deficits | CPT/HCPCS: 83036; 96127; 99212 ==